=== PATIENT | female | born 1950 | race Caucasian/White ===

== ENCOUNTER 2020-08-25 12:18 | Outpatient (REF) | payer SELFPAY ==
--- NOTE | 2020-08-28 08:52 | MHC.AU.P13 ---
Hearing Aid Evaluation- Binaural Date of Visit: 08/25/20 Description of Hearing: Asymmetric mild to moderate, dropping to moderately-severe mixed hearing loss, right ear poorer than left. Summary: Patient saw [facility] last week and wants to pursue binaural hearing aids. Medical clearance WAS NOT provided by the ENT and I will fax the clearance to the office. Appropriate models of hearing aids and technology levels. Patient wants to pursue with the aids documented below. Hearing Instrument Selection: Right Ear: Table And Desk Finisher: Phonak Model: Audeo P 50-13T Battery Size: 13 Color: Sand Beige Trader: #1 medium Tubing: Type of Dome: Vented Type of Mold: Left Ear: Table And Desk Finisher: Phonak Model: Audeo P 50-13T Battery Size: 13 Color: Sand Beige Trader: #1 medium Tubing: Type of Dome: Vented Type of Mold: Accessories/Assistive Technology: Recommendations: Recommendations: A hearing instrument fitting was scheduled. A signed medical clearance is required from Ear, Nose, and Throat Recommendations: Medical clearance faxed to [facility] 08/28/2020 Diagnosis Code(s): Primary Diagnosis: H90.6 Mixed Hearing Loss, Bilateral Secondary Diagnosis: N/A Services Performed: Hearing Aid Evaluation and Earmold: Assorted Hearing Aid Service: No Charge Visit Number of Individual Battery Cells: Packages of Batteries: Signature: Student/Clinical Fellow: I have reviewed/agreed with student/fellow documentation: Provider: Kath Oropeza, [facility]
== END 2020-08-25 12:19 | disposition home or self-care (01) ==
LOC: HO.HAP 12:18
PROVIDERS: PCP Internal Medicine; Referring Provider Internal Medicine; Visit Provider Internal Medicine
DX: Z13.89 Encounter for screening for other disorder (principal)
CPT/HCPCS: 92700

== ENCOUNTER 2020-09-11 12:37 | Outpatient (REF) | payer SELFPAY | END 2020-09-11 12:38 | disposition home or self-care (01) | LOC: HO.HAP 12:37 | PROVIDERS: PCP Internal Medicine; Referring Provider Otolaryngology; Visit Provider Internal Medicine | DX: Z46.1 Encounter for fitting and adjustment of hearing aid (principal) | CPT/HCPCS: V5261 ==

== ENCOUNTER 2020-10-03 12:10 | Outpatient (REF) | payer SELFPAY | END 2020-10-03 12:11 | disposition home or self-care (01) | LOC: HO.HAP 12:10 | PROVIDERS: PCP Internal Medicine; Referring Provider Internal Medicine; Visit Provider Internal Medicine | DX: Z13.89 Encounter for screening for other disorder (principal) | CPT/HCPCS: 92700 ==

== ENCOUNTER 2020-10-17 09:27 | Outpatient (REF) | payer SELFPAY | END 2020-10-17 09:28 | disposition home or self-care (01) | LOC: HO.HAP 09:27 | PROVIDERS: Visit Provider Internal Medicine | DX: Z46.1 Encounter for fitting and adjustment of hearing aid (principal) | CPT/HCPCS: V5267 ==

== ENCOUNTER 2021-01-02 07:33 | Day surgery (SDC) | payer BC, SELFPAY ==
[2020-12-27 13:30] VITALS: BMI 29.4
--- NOTE | 2021-01-01 09:19 | P.CONAN_ITS ---
Documented by User: Lois Bonilla 01/01/21 09:20 HPI - Anesthesia Eval Consult details Narrative: 70yo F for Upper Endoscopy and Colonoscopy chronic opioids PMFSH Past Medical History Medical History Arthritis Back pain Claudication DJD (degenerative joint disease) HTN (hypertension) Hx of Lyme disease IBS (irritable bowel syndrome) Kyphosis deformity of spine Restless leg syndrome Thyroid disease Surgical History Surgical History H/O colonoscopy History of back surgery History of esophagogastroduodenoscopy (EGD) History of total left hip arthroplasty History of total left knee replacement Hx of cervical discectomy Hx of section Hx of inguinal hernia repair Hx of tubal ligation Social History Social History Are you a primary home care and home health aides teacher to a significant other at home: No Do you presently have visiting nurse or other home services: No Smoking Status: Current every day smoker Cigarettes Per Day: 10 Years Smoked: 50 Smoked in Last 30 Days: Yes Use of substances other than those prescribed or required for medical reasons: No Have you been hit, kicked, punched, or otherwise hurt by someone within the past year? If so, by whom?: No Advance Directives Information Provided: No Recently lost weight without trying: No Meds Allergies Allergy/AdvReac Type Severity Reaction Status Date / Time metronidazole [From FLAGYL] Allergy Severe UNRESPONSIV Unverified 12/27/20 13:30 E Sulfa (Sulfonamide Allergy Severe UNRESPONSIV Unverified 12/27/20 13:30 Antibiotics) E [SULFA (SULFONAMIDE ANTIBIOTICS)] celecoxib [From CELEBREX] Allergy Unknown CONTRAINDIC Verified 01/02/21 08:17 ATED Home Medications Medication Instructions Recorded Confirmed Last Taken Type amlodipine 1 tab PO DAILY 12/27/20 12/27/20 Unknown History chlorzoxazone [Parafon Forte DSC] 500 mg PO TID PRN 12/27/20 12/27/20 Unknown Hi story gabapentin 100 mg PO BEDTIME 12/27/20 12/27/20 Unknown History gabapentin 300 mg PO BEDTIME 12/27/20 12/27/20 Unknown History hydrocodone-acetaminophen 1 tab PO Q6H PRN 12/27/20 12/27/20 Unknown History lactobacillus comb no.10 20,000 mmu cells PO DAILY 12/27/20 12/27/20 Unknown History [Probiotic] levothyroxine 100 mcg PO QAM 12/27/20 12/27/20 Unknown History lisinopril 1 tab PO DAILY 12/27/20 12/27/20 Unknown History prochlorperazine maleate 10 mg PO Q6H PRN 12/27/20 12/27/20 Unknown History rifaximin [Xifaxan] 1 tab PO BID 12/27/20 12/27/20 Unknown History tramadol 1 tab PO TID PRN 12/27/20 12/27/20 Unknown History Exam Exam Date and Time: January 01, [id number] Height,Weight and Vital Signs: Height 5 ft 3 in Weight 75.296 kg Assessment and Plan Assessment Anesthesia Assessment: Chart Reviewed Documented by User: Hailey Albright 01/02/21 08:59 PMFSH Past Medical History Medical History Arthritis Back pain Claudication DJD (degenerative joint disease) HTN (hypertension) Hx of Lyme disease IBS (irritable bowel syndrome) Kyphosis deformity of spine Restless leg syndrome Thyroid disease Family History Family history of problems with anesthesia: No Surgical History Surgical History H/O colonoscopy History of back surgery History of esophagogastroduodenoscopy (EGD) History of total left hip arthroplasty History of total left knee replacement Hx of cervical discectomy Hx of section Hx of inguinal hernia repair Hx of tubal ligation History of Problems with Anesthesia: No Social History Social History Are you a primary home care and home health aides teacher to a significant other at home: No Do you presently have visiting nurse or other home services: No Smoking Status: Current every day smoker Cigarettes Per Day: 10 Years Smoked: 50 Smoked in Last 30 Days: Yes Use of substances other than those prescribed or required for medical reasons: No Have you been hit, kicked, punched, or otherwise hurt by someone within the past year? If so, by whom?: No Advance Directives Information Provided: No Recently lost weight without trying: No Meds Allergies Allergy/AdvReac Type Severity Reaction Status Date / Time metronidazole [From FLAGYL] Allergy Severe UNRESPONSIV Unverified 12/27/20 13:30 E Sulfa (Sulfonamide Allergy Severe UNRESPONSIV Unverified 12/27/20 13:30 Antibiotics) E [SULFA (SULFONAMIDE ANTIBIOTICS)] celecoxib [From CELEBREX] Allergy Unknown CONTRAINDIC Verified 01/02/21 08:17 ATED Home Medications Medication Instructions Recorded Confirmed Last Taken Type amlodipine 1 tab PO DAILY 12/27/20 12/27/20 Unknown History chlorzoxazone [Parafon Forte DSC] 500 mg PO TID PRN 12/27/20 12/27/20 Unknown History gabapentin 100 mg PO BEDTIME 12/27/20 12/27/20 Unknown History gabapentin 300 mg PO BEDTIME 12/27/20 12/27/20 Unknown History hydrocodone-acetaminophen 1 tab PO Q6H PRN 12/27/20 12/27/20 Unknown History lactobacillus comb no.10 20,000 mmu cells PO DAILY 12/27/20 12/27/20 Unknown History [Probiotic] levothyroxine 100 mcg PO QAM 12/27/20 12/27/20 Unknown History lisinopril 1 tab PO DAILY 12/27/20 12/27/20 Unknown History prochlorperazine maleate 10 mg PO Q6H PRN 12/27/20 12/27/20 Unknown History rifaximin [Xifaxan] 1 tab PO BID 12/27/20 12/27/20 Unknown History tramadol 1 tab PO TID PRN 12/27/20 12/27/20 Unknown History Exam Height,Weight and Vital Signs: Vital Signs Temp Pulse Resp BP Pulse Ox 01/02/21 08:05 98.7 F 85 16 164/89 H 99 Airway Mallampati Class: II TM Dist: >3cm Neck ROM: Full Heart: RRR Lungs: CTAB Assessment and Plan Assessment Anesthesia Assessment: Anesthesia Plan Discussed and Chart Reviewed Final Anesthetic Review NPO: Yes ASA Class: II Final Preanesthetic Review: No Changes in Pt Med Stat, Meds/Allgs Chart Reviewed, Consent Obtained/Reviewed and Anes Risks/Benef Reviewed Patient Risk: Intermediate Procedure Risk: Low Assessment/Block/Sedation in SS: Assess/Block/Sedation-SS Anesthetic Plan Anesthetic Plan: MAC: Disposition: Standard PACU
[2021-01-02 08:05] VITALS: BP 164/89; PULSE 85; RESP 16; TEMP 37.1; O2SAT 99
[2021-01-02] MEDS: Lactated Ringers 1,000 ML 100 ML IVCONT (08:17)
--- NOTE | 2021-01-02 08:49 | MHC.SHP ---
Pre-Procedural Eval Section B Chief Complaint: reflux disease,screening Details of Present Illness: see H& P no changes Relevant Family History (Specify if Yes): No Relevant Social History: Tobacco Use Present Medications: see Short Stay Collaborative assessment Medical History: No relevant PMH Allergies: Allergies Allergy/AdvReac Type Severity Reaction Status Date / Time metronidazole [From FLAGYL] Allergy Severe UNRESPONSIV Unverified 12/27/20 13:30 E Sulfa (Sulfonamide Allergy Severe UNRESPONSIV Unverified 12/27/20 13:30 Antibiotics) E [SULFA (SULFONAMIDE ANTIBIOTICS)] celecoxib [From CELEBREX] Allergy Unknown CONTRAINDIC Verified 01/02/21 08:17 ATED Review of Systems Sugical H&P ROS: Negative: Constitution, Cardiovascular, Respiratory, Neurological, Psychiatric, Hem-Onc, Allergic/Immunologic, Gastrointestinal, Genitourinary, Musculoskeletal, Integumentary, Endocrine and Eyes/Ears/Nose/Throat Exam Surgical H&P Exam: Normal: HEENT, Normal: Heart, Normal: Lungs, Normal: Extremities, Normal: Abdomen, Normal: Skin and Normal: Neurological Plan Diagnosis/Plan: Unchanged I have reviewed the history and physical and performed a pertinent physical examination on my patient. No changes have occurred unless specified.
[2021-01-02 09:34] VITALS: BP 125/55; PULSE 63; RESP 12; TEMP 37; O2SAT 100
--- NOTE | 2021-01-02 09:37 | PM.OP ---
Brief Operative Note Date of Service: 01/02/21 Pre-op diagnosis: gerd, screening Post-op diagnosis: same (gastric ulcer, colon polyp) Procedure: egd colonoscopy Surgeon: Mehul Burdick Estimated blood loss (mL): 10 Pathology: other (bxs gastric ulcer, egj, cecal polyp, sigmoid) Condition: stable Disposition: PACU
[2021-01-02 09:49] VITALS: BP 120/78; PULSE 72; RESP 17; TEMP 37; O2SAT 99
--- NOTE | 2021-01-02 10:03 | OP_ITS ---
SURGEON: Mehul Burdick MD INDICATIONS: Gastroesophageal reflux disease and colon cancer screening. PREOPERATIVE DIAGNOSIS: POSTOPERATIVE DIAGNOSIS: PROCEDURE PERFORMED: ESTIMATED BLOOD LOSS: COMPLICATIONS: ANESTHESIA: ASSISTANTS: SPECIMENS: PROCEDURES PERFORMED: 1. Upper endoscopy with biopsy. 2. Colonoscopy to the terminal ileum with biopsy. MEDICATIONS: Monitored anesthesia care. DESCRIPTION OF PROCEDURE: History and physical performed. The risks and benefits of the procedure were explained to the patient. Informed consent was obtained. The patient was placed in a left lateral decubitus position. The Olympus video gastroscope was introduced into the esophagus, stomach, and duodenum. Examination was performed and the scope was removed. She was repositioned for colonoscopy. Digital rectal exam was performed and was found to be normal. The Olympus pediatric video colonoscope was introduced into the rectum and advanced to the cecum without difficulty. The cecum was identified by transillumination, palpation, and identification of ileocecal valve. Abdominal wall pressure was used to assist in advancement of the scope. Examination was performed and the scope was removed. She tolerated both procedures well and returned to recovery area in stable condition. FINDINGS: UPPER ENDOSCOPY: Esophagus: The esophagus was normal. Biopsies were obtained from the EG junction. Stomach: The stomach showed no evidence of masses. There was a 5 mm antral gastric ulcer on the greater curvature with no active bleeding. Biopsies were obtained from the margin of the ulcer. Duodenum: The bulb and second portion were normal. COLONOSCOPY: The terminal ileum was examined and appeared normal. The visualized colonic mucosa was normal. There was some liquid stool coating the mucosa, limiting sensitivity examination for detection of small polyps. This was washed and suctioned as best possible. In the cecum, was a less than 5 mm sessile polyp, which was removed with biopsy forceps. There was no evidence of colitis. There was mild diverticulosis scattered throughout the colon. Biopsies were obtained from the sigmoid to rule out microscopic colitis. Retroflexed examination showed small internal hemorrhoids. IMPRESSION: 1. Gastric ulcer. 2. Colon polyp. RECOMMENDATION: Follow up the biopsy results. MD KAIT Mendoza/COLIN / [id number]
== END 2021-01-02 10:29 | disposition home or self-care (01) ==
PROVIDERS: PCP Internal Medicine; Visit Provider Internal Medicine Gastroenterology
PROC: (CPT 45380; principal; 2021-01-02 08:50)
DX: Z12.11 Encounter for screening for malignant neoplasm of colon (principal); Z86.010 Personal history of colon polyps; D12.0 Benign neoplasm of cecum; K58.9 Irritable bowel syndrome, unspecified; K21.9 Gastro-esophageal reflux disease without esophagitis; K25.9 Gastric ulcer, unspecified as acute or chronic, without hemorrhage or perforation; R11.0 Nausea; I10 Essential (primary) hypertension; F17.210 Nicotine dependence, cigarettes, uncomplicated; Z79.899 Other long term (current) drug therapy
CPT/HCPCS: 45380; 43239; 88305; 88342; J3010

== ENCOUNTER 2021-04-17 06:16 | Day surgery (SDC) | payer BC, SELFPAY ==
[2021-04-12 10:34] VITALS: BMI 25.8
--- NOTE | 2021-04-16 08:44 | P.CONAN_ITS ---
Documented by User: Lois Bonilla 04/16/21 08:44 HPI - Anesthesia Eval Consult details Narrative: 71yo F for Upper Endoscopy s/p EGD and colo with MAC 01/2021 [facility] Past Medical History Medical History Arthritis Back pain Claudication COVID-19 vaccine administered DJD (degenerative joint disease) Elevated cholesterol HTN (hypertension) Hx of Lyme disease IBS (irritable bowel syndrome) Kyphosis deformity of spine Restless leg syndrome Thyroid disease Family History Family history of problems with anesthesia: No Surgical History Surgical History H/O colonoscopy History of back surgery History of esophagogastroduodenoscopy (EGD) History of total left hip arthroplasty History of total left knee replacement Hx of cervical discectomy Hx of section Hx of inguinal hernia repair Hx of lumbar discectomy Hx of tubal ligation History of Problems with Anesthesia: No Social History Social History Are you a primary physician locums urgent care to a significant other at home: No Do you presently have visiting nurse or other home services: No Patient Tobacco Use Status: Current everyday Tobacco user Tobacco use type: Cigarette Cigarettes Per Day: 8 Years Smoked: 50 Are you DNR?: No Advance Directives Information Provided: No Meds Allergies Allergy/AdvReac Type Severity Reaction Status Date / Time metronidazole [From FLAGYL] Allergy Severe UNRESPONSIV Verified 04/17/21 06:47 E Sulfa (Sulfonamide Allergy Severe UNRESPONSIV Verified 04/17/21 06:47 Antibiotics) E [SULFA (SULFONAMIDE ANTIBIOTICS)] celecoxib [From CELEBREX] Allergy Unknown CONTRAINDIC Verified 04/17/21 06:47 ATED Home Medications Medication Instructions Recorded Confirmed Last Taken Type atorvastatin 1 tab PO DAILY 04/12/21 04/12/21 Unknown History carvedilol 1 tab PO BID 04/12/21 04/12/21 04/17/21 History chlorzoxazone 1 tab PO TID 04/12/21 04/12/21 Unknown History clonidine HCl 0.1 mg PO BID 04/12/21 04/12/21 04/17/21 History gabapentin 100 mg PO BEDTIME 04/12/21 04/12/21 Unknown History gabapentin 300 mg PO BEDTIME 04/12/21 04/12/21 Unknown History hydrocodone-acetaminophen 1 tab PO Q4H PRN 04/12/21 04/12/21 Unknown History levothyroxine 1 tab PO DAILY 04/12/21 04/12/21 04/17/21 History lisinopril 1 tab PO DAILY 04/12/21 04/12/21 Unknown History prochlorperazine maleate 1 tab PO TID 04/12/21 04/12/21 Unknown History rifaximin [Xifaxan] 1 tab PO BID 04/12/21 04/12/21 Unknown History tramadol 1 tab PO TID PRN 04/12/21 04/12/21 Unknown History Exam Exam Date and Time: April 16, 2021 0844 Height,Weight and Vital Signs: Height 5 ft 6 in Weight 72.575 kg Assessment and Plan Assessment Anesthesia Assessment: Chart Reviewed Documented by User: Hailey Albright 04/17/21 07:37 PMFSH Past Medical History Medical History Arthritis Back pain Claudication COVID-19 vaccine administered DJD (degenerative joint disease) Elevated cholesterol HTN (hypertension) Hx of Lyme disease IBS (irritable bowel syndrome) Kyphosis deformity of spine Restless leg syndrome Thyroid disease Surgical History Surgical History H/O colonoscopy History of back surgery History of esophagogastroduodenoscopy (EGD) History of total left hip arthroplasty History of total left knee replacement Hx of cervical discectomy Hx of section Hx of inguinal hernia repair Hx of lumbar discectomy Hx of tubal ligation Social History Social History Are you a primary physician locums urgent care to a significant other at home: No Do you presently have visiting nurse or other home services: No Patient Tobacco Use Status: Current everyday Tobacco user Tobacco use type: Cigarette Cigarettes Per Day: 8 Years Smoked: 50 Are you DNR?: No Advance Directives Information Provided: No Meds Allergies Allergy/AdvReac Type Severity Reaction Status Date / Time metronidazole [From FLAGYL] Allergy Severe UNRESPONSIV Verified 04/17/21 06:47 E Sulfa (Sulfonamide Allergy Severe UNRESPONSIV Verified 04/17/21 06:47 Antibiotics) E [SULFA (SULFONAMIDE ANTIBIOTICS)] celecoxib [From CELEBREX] Allergy Unknown CONTRAINDIC Verified 04/17/21 06:47 ATED Home Medications Medication Instructions Recorded Confirmed Last Taken Type atorvastatin 1 tab PO DAILY 04/12/21 04/12/21 Unknown History carvedilol 1 tab PO BID 04/12/21 04/12/21 04/17/21 History chlorzoxazone 1 tab PO TID 04/12/21 04/12/21 Unknown History clonidine HCl 0.1 mg PO BID 04/12/21 04/12/21 04/17/21 History gabapentin 100 mg PO BEDTIME 04/12/21 04/12/21 Unknown History gabapentin 300 mg PO BEDTIME 04/12/21 04/12/21 Unknown History hydrocodone-acetaminophen 1 tab PO Q4H PRN 04/12/21 04/12/21 Unknown History levothyroxine 1 tab PO DAILY 04/12/21 04/12/21 04/17/21 History lisinopril 1 tab PO DAILY 04/12/21 04/12/21 Unknown History prochlorperazine maleate 1 tab PO TID 04/12/21 04/12/21 Unknown History rifaximin [Xifaxan] 1 tab PO BID 04/12/21 04/12/21 Unknown History tramadol 1 tab PO TID PRN 04/12/21 04/12/21 Unknown History Exam Height,Weight and Vital Signs: Vital Signs Temp Pulse Resp BP Pulse Ox 04/17/21 06:34 97.2 F 55 16 105/59 L 96 Airway Mallampati Class: II TM Dist: >3cm Neck ROM: Full Heart: RRR Lungs: CTAB Assessment and Plan Assessment Anesthesia Assessment: Anesthesia Plan Discussed and Chart Reviewed Final Anesthetic Review NPO: Yes ASA Class: II Final Preanesthetic Review: No Changes in Pt Med Stat, Meds/Allgs Chart Reviewed, Consent Obtained/Reviewed and Anes Risks/Benef Reviewed Patient Risk: Low Procedure Risk: Low Assessment/Block/Sedation in SS: Assess/Block/Sedation-SS Anesthetic Plan Anesthetic Plan: MAC: Disposition: Standard PACU
[2021-04-17 06:34] VITALS: BP 105/59; PULSE 55; RESP 16; TEMP 36.2; O2SAT 96
[2021-04-17] MEDS: Lactated Ringers 1,000 ML 100 ML IVCONT (06:48)
--- NOTE | 2021-04-17 07:22 | P.HPSUR_ITS ---
Pre-Procedural Eval Section A The patient is an INPATIENT: No Section B Chief Complaint: gastric ulcer Details of Present Illness: gastric ulcer Relevant Family History (Specify if Yes): No Relevant Social History: None (see H&P) Present Medications: see Short Stay Collaborative assessment Medical History: No relevant PMH History of Previous Operations: No relevant previous surgery Allergies: Allergies Allergy/AdvReac Type Severity Reaction Status Date / Time metronidazole [From FLAGYL] Allergy Severe UNRESPONSIV Verified 04/17/21 06:47 E Sulfa (Sulfonamide Allergy Severe UNRESPONSIV Verified 04/17/21 06:47 Antibiotics) E [SULFA (SULFONAMIDE ANTIBIOTICS)] celecoxib [From CELEBREX] Allergy Unknown CONTRAINDIC Verified 04/17/21 06:47 ATED Review of Systems Sugical H&P ROS: Negative: Constitution, Cardiovascular, Respiratory, Neurological, Psychiatric, Hem-Onc, Allergic/Immunologic, Gastrointestinal, Genitourinary, Musculoskeletal, Integumentary, Endocrine and Eyes/Ea rs/Nose/Throat Exam Surgical H&P Exam: Normal: HEENT, Normal: Heart, Normal: Lungs, Normal: Extremities, Normal: Abdomen, Normal: Skin and Normal: Neurological Plan Diagnosis/Plan: Unchanged I have reviewed the history and physical and performed a pertinent physical examination on my patient. No changes have occurred unless specified.
--- NOTE | 2021-04-17 07:43 | PM.OP ---
Brief Operative Note Date of Service: 04/17/21 Pre-op diagnosis: gastric ulcer Post-op diagnosis: same (erosive gastritis) Procedure: EGD/bx Surgeon: Mehul Burdick Anesthesia: MAC Was an Production Team Advisor used for this Procedure?: No Estimated blood loss (mL): 5 Pathology: other (antral biopsies, duodenal biopsies) Condition: stable Disposition: PACU
[2021-04-17 07:44] VITALS: BP 94/58; PULSE 51; RESP 15; TEMP 36.2; O2SAT 98
[2021-04-17 07:59] VITALS: BP 96/54; PULSE 53; RESP 17; O2SAT 100
[2021-04-17 08:09] VITALS: BP 119/55; PULSE 53; RESP 17; O2SAT 99
--- NOTE | 2021-04-20 10:56 | OP_ITS ---
SURGEON: Mehul Burdick MD INDICATIONS: Gastric ulcers at the time of last endoscopy. PREOPERATIVE DIAGNOSIS: POSTOPERATIVE DIAGNOSIS: PROCEDURE PERFORMED: Upper endoscopy with biopsy. ESTIMATED BLOOD LOSS: COMPLICATIONS: ANESTHESIA: ASSISTANTS: SPECIMENS: MEDICATIONS: Monitored anesthesia care. DESCRIPTION OF PROCEDURE: History and physical performed. The risks and benefits of the procedure were explained to the patient. Informed consent was obtained. The patient was placed in the left lateral decubitus position. The Olympus video gastroscope was introduced into the esophagus, stomach, and duodenum. Examination was performed and the scope was removed. She tolerated the procedure well and was taken to recovery area in stable condition. FINDINGS: Esophagus: The esophagus showed some residual food debris, but no esophagitis. Stomach: The stomach showed no evidence of masses. There were multiple erosions measuring approximately 5 to 10 mm with surrounding gastritis. Biopsies were obtained from the ulcers. No mass lesion was seen. Duodenum: There was duodenitis involving the bulb. Biopsies were obtained from the second portion. IMPRESSION: 1. Erosive gastritis with superficial ulcerations. 2. Duodenitis. RECOMMENDATIONS: 1. Follow up the biopsy results. 2. High-dose proton pump inhibitor. MD KAIT Mendoza/COLIN / [id number]
== END 2021-04-17 08:49 | disposition home or self-care (01) ==
PROVIDERS: PCP Internal Medicine; Visit Provider Internal Medicine Gastroenterology
PROC: 0DJ08ZZ Inspection of Upper Intestinal Tract, Via Natural or Artificial Opening Endoscopic (ICD-10-PCS; CPT 43235; principal; 2021-04-17 07:30)
DX: K25.9 Gastric ulcer, unspecified as acute or chronic, without hemorrhage or perforation (principal); K29.60 Other gastritis without bleeding; K58.9 Irritable bowel syndrome, unspecified; K29.80 Duodenitis without bleeding; I10 Essential (primary) hypertension; Z86.19 Personal history of other infectious and parasitic diseases; F17.210 Nicotine dependence, cigarettes, uncomplicated; Z79.899 Other long term (current) drug therapy
CPT/HCPCS: 43239; 88305; 88342

== ENCOUNTER 2021-05-16 10:43 | Outpatient (REF) | payer SELFPAY | END 2021-05-16 10:44 | disposition home or self-care (01) | LOC: HO.HAP 10:43 | PROVIDERS: Visit Provider Internal Medicine | DX: Z13.89 Encounter for screening for other disorder (principal) ==

== ENCOUNTER 2022-11-01 12:28 | Outpatient (REF) | payer BC, SELFPAY ==
[2022-11-01 14:33] LABS: Leukocytes Stool Qualitative NEGATIVE (NEGATIVE)
[2022-11-01 15:10] LABS: CDiff Gene PCR NEGATIVE (Negative)
[2022-11-07 20:04] LABS: Calprotectin, Fecal 15 mcg/g
== END 2022-11-01 12:29 | disposition home or self-care (01) ==
LOC: HO.HMGCLDS 12:28
PROVIDERS: PCP Internal Medicine; Visit Provider Internal Medicine Gastroenterology
DX: R19.7 Diarrhea, unspecified (principal)
CPT/HCPCS: 83993; 87177; 87209; 87493; 87507; 89055

== ENCOUNTER 2022-11-04 | Outpatient (REF) | payer BC, SELFPAY | END 2022-11-04 00:01 | disposition home or self-care (01) | LOC: HO.LNP | PROVIDERS: Visit Provider Internal Medicine Gastroenterology | DX: Z13.89 Encounter for screening for other disorder (principal) | CPT/HCPCS: 83993; 87493 ==

== ENCOUNTER 2022-11-05 09:45 | Outpatient (REF) | payer BC, SELFPAY | END 2022-11-05 09:46 | disposition home or self-care (01) | LOC: HO.HMGCLNP 09:45 | PROVIDERS: Visit Provider Internal Medicine Gastroenterology | DX: R19.7 Diarrhea, unspecified (principal) | CPT/HCPCS: 87177; 87209; 87507 ==

== ENCOUNTER 2022-11-08 10:35 | Outpatient (REF) | payer BC, SELFPAY ==
[2022-11-08 12:52] LABS: Adenovirus F 40/41 Not Detected (Not Detect.); Astrovirus Not Detected (Not Detect.); Campylobacter Not Detected (Not Detect.); Cryptosporidium Not Detected (Not Detect.); Cyclospora cayetanensis Not Detected (Not Detect.); E. coli EAEC Not Detected (Not Detect.); E. coli EPEC Not Detected (Not Detect.); E. coli ETEC Not Detected (Not Detect.); E. coli STEC Not Detected (Not Detect.); Entamoeba histolytica Not Detected (Not Detect.); Giardia lamblia Not Detected (Not Detect.); Norovirus GI/GII Not Detected (Not Detect.); Plesiomonas shigelloides Not Detected (Not Detect.); Rotavirus A Not Detected (Not Detect.); Salmonella Not Detected (Not Detect.); Sapovirus Not Detected (Not Detect.); Shigella sp./EIEC Not Detected (Not Detect.); Vibrio Not Detected (Not Detect.); Vibrio Cholerae Not Detected (Not Detect.); Yersinia enterocolitica Not Detected (Not Detect.)
== END 2022-11-08 10:36 | disposition home or self-care (01) ==
LOC: HO.HMGCLNP 10:35
PROVIDERS: PCP Internal Medicine Gastroenterology; Visit Provider Internal Medicine Gastroenterology
DX: R19.7 Diarrhea, unspecified (principal)
CPT/HCPCS: 87507

== ENCOUNTER 2024-04-19 13:49 | Outpatient (AMB) | payer BC, SELFPAY ==
--- NOTE | 2024-04-19 13:55 | HO.SPINEOV ---
Intake Visit Reasons: increase in back pain Intake Note: Ms. Obrien is here today c/o increased back pain. MRI done at [facility]. 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 This is a patient known to us from our previous practice at [facility]. She underwent an ACDF at C5-6 a number of years ago by Dr. Thiago Mata , who has since . She was following up with us for degenerative disc disease in her neck with cervical stenosis at C3-4. At the time of our visit her main complaint was neck pain and she did have some hyperreflexia on the left sides so we had been following her clinically with serial neurological exams and office visit just to make sure she did not become symptomatic from the stenosis in terms of neurological complaints. She has been stable and our last office visit was sometime over the winter of 2022. She had had a little bit of tingling on the right side of her neck so wanted to come in today for checkup. Overall, most of the issue she has been having are with her lumbar spine. She has a severe scoliosis and trouble walking but has not had any tingling or numbness of her arms or legs. No loss of fine motor movements. Obviously with the scoliosis her balance is not great but there have been no new specific changes in terms of things deteriorating due to focal leg weakness. On my exam she has excellent strength. She still has the hyperreflexia on the left. 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 This may account for her hyperreflexia, but we will continue to check on her. I educated her and her on signs and symptoms of myelopathy and we will see her back in 6 months again for another office visit. Total amount of time spent in this visit was 20 minutes in discussion of symptoms, cervical MRI imaging results and subsequent plan of care Jose Luis Salgado MD,PhD [facility] Coding Level of Care Code Est Pt Level 3 (62258) Diagnoses Cervical myelopathy G95.9
== END 2024-04-19 14:38 | disposition home or self-care (01) ==
PROVIDERS: PCP Internal Medicine Gastroenterology; Visit Provider Physician Assistant
DX: G95.9 Disease of spinal cord, unspecified (principal)
CPT/HCPCS: 99213

== ENCOUNTER → 2024-04-19 13:49 | Outpatient (BNVA) | payer BC, SELFPAY | PROVIDERS: PCP Internal Medicine Gastroenterology; Visit Provider Physician Assistant ==

== ENCOUNTER 2024-07-23 14:37 | Outpatient (AMB) | payer BC, SELFPAY ==
--- NOTE | 2024-07-23 14:46 | HO.SPINEOV ---
Intake Visit Reasons: review MRI Intake Note: Ms. Obrien is here to F/u on MRI Results. Fruit Stuffer Required: No Allergies metronidazole [From FLAGYL] Allergy (Severe, Verified 04/17/21 06:47) UNRESPONSIVE Sulfa (Sulfonamide Antibiotics) [SULFA (SULFONAMIDE ANTIBIOTICS)] Allergy (Severe, Verified 04/19/24 14:07) UNRESPONSIVE celecoxib [From CELEBREX] Allergy (Unknown, Verified 04/17/21 06:47) CONTRAINDICATED Assessment & Plan Assessment & Plan (1) Leg weakness: Code(s): R29.898 - Other symptoms and signs involving the musculoskeletal system Category: Medical Plan Mrs Obrien is following up in the office today for a new issue that has been bothering her. We had been following her for an asymptomatic C3-4 cervical stenosis with some hyperreflexia found on her exam. What she reports now is that over the last few months without any specific inciting event, she is developed progressive weakness of both of her legs. There is not any pain shooting down her legs. There is no specific numbness, just a generalized sense of not being able to hold herself up anymore. She comes in today in a wheelchair because she is lost the ability to mobilize even short distances now because of the leg weakness. She is able to control her bladder and does sense when she has to go but she has urinary frequency and urgency but she has not had any incontinence. The frequency and urgency are unchanged and she attributes these to her age. I reviewed her lumbar MRI at [place] and she does have scoliotic curvature. She has stenosis at L3-4 which i would rate as moderate to severe worse on the right. Noted by the radiologist there is a T2 hyperintensity in the spinal cord at the T10-11 level and what appears to be severe stenosis. I examined her today, she is able to get up out of the wheelchair on her own but she is very unsteady. She stands with a flexed posture. She has 3/5 weakness of her iliopsoas but her quadriceps and tibialis are intact. She has increased reflexes on the left patella and clonus in both of her ankles. I am going to order an urgent thoracic MRI to evaluate thoracic myelopathy as seen on the lumbar MRI. I will also get a set of standing scoliosis survey x-rays to better understand the dynamics of her thoracolumbar spine in the setting of her curvature. I will see her back when this is completed. Total amount of time spent in this visit was 20 minutes in discussion of symptoms, lumbar imaging results and subsequent plan of care Jose Luis Salgado MD,PhD [facility] Orders: Orders MR thoracic spine wo con Today R29.898 - Other symptoms and signs involving the musculoskeletal system XR lumbar spine 4V min Today R29.898 - Other symptoms and signs involving the musculoskeletal system XR scoliosis survey Today R29.898 - Other symptoms and signs involving the musculoskeletal system Coding Level of Care Code Est Pt Level 3 (61872) Diagnoses Leg weakness R29.898
== END 2024-07-23 15:31 | disposition home or self-care (01) ==
PROVIDERS: PCP Internal Medicine; Visit Provider Physician Assistant
DX: R29.898 Other symptoms and signs involving the musculoskeletal system (principal)
CPT/HCPCS: 99213

== ENCOUNTER → 2024-07-23 14:37 | Outpatient (BNVA) | payer BC, SELFPAY | PROVIDERS: PCP Internal Medicine; Visit Provider Physician Assistant ==

== ENCOUNTER 2024-07-27 11:20 | Outpatient (REF) | payer BC, SELFPAY ==
--- NOTE | ~2024-07-27 | XR_ITS ---
EXAMINATION: XR SCOLIOSIS CLINICAL INFORMATION: R29.898 - Other symptoms and signs involving the musculoskeletal system COMPARISON: Lumbar spine radiographs 07/27/2024 TECHNIQUE: A single view of the thoracolumbar spine is obtained. FINDINGS: Vertebral body detail is limited on this exam. Difficult to assess for compression deformities. Multilevel disc space narrowing is seen throughout the thoracic and lumbar spine with extensive spondylosis. The lateral view is rotated with a thoracolumbar kyphosis measuring approximately 77 degrees. A right convex thoracolumbar scoliosis measures approximately 56 degrees and a left convex lumbar scoliosis approximately 26 degrees. Left total hip arthroplasty is partially visualized. Moderately advanced degenerative changes are present in the right hip. Note is made of prior anterior cervical disc fusion in the lower cervical spine. XR/XR scoliosis survey IMPRESSION: Kyphoscoliosis as described. Electronically signed by: Bradley Tovar MD 10/19/2024 09:23 PM [facility]
--- NOTE | ~2024-07-27 | XR_ITS ---
EXAMINATION: XR LUMBOSACRAL SPINE CLINICAL INFORMATION: R29.898 - Other symptoms and signs involving the musculoskeletal system COMPARISON: None available. TECHNIQUE: 4 views of the lumbar spine, inclusive of flexion and extension views, were obtained. FINDINGS: Diffuse osteopenia. Relatively severe scoliosis of the lumbar spine. This is convex to the right apex at L1, convex to the left apex at L5. Difficult to assess for alignment due to obliquity on the lateral femoral scoliosis and rotation. There appears to be subtle retrolistheses of L1 on L2, L2 on L3, and L3 on L4. There is a trace anterolisthesis L5 on S1. Grossly no change in flexion and extension to suggest instability. Severe disc space narrowing noted most significant at T12-L1, L1-L2, and L2-L3. Severe facet arthrosis and degeneration most significant on the right spanning L3-S1. Soft tissues demonstrate vascular calcifications. Ancillary note of moderate osteoarthrosis right hip joint, and left hip joint replacement. Lung bases are clear. XR/XR lumbar spine 4V min IMPRESSION: 1. Severe scoliosis and severe degenerative spondylosis. Osteopenia. 2. Subtle subluxations, degenerative, with no definite instability (although lateral projections are limited due to obliquity and scoliosis). 3. Ancillary findings as discussed. Electronically signed by: Demarcus Martínez MD 10/04/2024 10:51 AM [facility]
== END 2024-07-27 11:21 | disposition home or self-care (01) ==
LOC: HO.XRAY 11:20
PROVIDERS: PCP Internal Medicine; Visit Provider Physician Assistant
DX: R29.898 Other symptoms and signs involving the musculoskeletal system (principal)
CPT/HCPCS: 72082; 72110

== ENCOUNTER → 2024-07-27 11:30 | Outpatient (BNV) | payer BC, SELFPAY | PROVIDERS: PCP Internal Medicine; Visit Provider Radiology Diagnostic Radiology | DX: M41.9 Scoliosis, unspecified (principal) | CPT/HCPCS: 72110 ==

== ENCOUNTER 2024-07-28 08:44 | Outpatient (REF) | payer BC, SELFPAY ==
--- NOTE | ~2024-07-28 | MM_ITS ---
EXAMINATION: MM SCREENING DIGITAL BREAST TOMOSYNTHESIS, BILATERAL CLINICAL INFORMATION: Screening. Asymptomatic. COMPARISON: Mammography: Comparison is made with available priors TECHNIQUE: Digital breast mammography with tomosynthesis is performed in both the craniocaudal and mediolateral oblique views along with computer-aided detection (CAD). FINDINGS: There are scattered areas of fibroglandular density (ACR BI-RADS breast composition Category b). There are no significant masses, abnormal calcifications, or other abnormalities. MM/MM tomosynthesis screening BI IMPRESSION: No mammographic evidence of malignancy. ASSESSMENT: BI-RADS BI-RADS 1 - Negative RECOMMENDATION: Routine annual mammography screening. 1 year F/U This examination should not preclude the clinical evaluation of a suspicious palpable abnormality. This patient's information was entered into a reminder system with a target due date for their next mammogram. Electronically signed by: Sanna Gibbs DO 08/09/2024 05:15 PM EDT
== END 2024-07-28 08:45 | disposition home or self-care (01) ==
LOC: HO.MAMMO 08:44
PROVIDERS: PCP Internal Medicine; Visit Provider Nurse Practitioner
DX: Z12.31 Encounter for screening mammogram for malignant neoplasm of breast (principal)
CPT/HCPCS: 77063; 77067

== ENCOUNTER → 2024-07-28 08:45 | Outpatient (BNV) | payer BC, SELFPAY | PROVIDERS: PCP Internal Medicine; Visit Provider Internal Medicine | DX: Z12.31 Encounter for screening mammogram for malignant neoplasm of breast (principal) | CPT/HCPCS: 77063; 77067 ==

== ENCOUNTER 2024-08-26 06:35 | Day surgery (SDC) | payer BC, SELFPAY ==
[2024-08-20 12:24] VITALS: BP 124/61; PULSE 58; RESP 16; O2SAT 98; BMI 24.2
--- NOTE | 2024-08-20 12:52 | HO.ANESPROP2 ---
Documented by User: Lois Bonilla NP 08/25/24 11:59 HPI - Anesthesia Eval Consult details Narrative: 74yo F for Left T10-T11 Laminectomy Thoracic Decompression No recent illness No CP/SOB with very minimal activity Renal artery stenosis: >60%. Follows with cardiology only, no nephrology CAD: medically managed, no intervention s/p cervical discectomy PMFSH Active Problems Active Problems: All Active Problems Leg weakness (Acute) Cervical myelopathy (Acute) Past Medical History Medical History Pericarditis Difficulty swallowing Hiatal hernia GERD (gastroesophageal reflux disease) Incontinence of urine Dementia Seasonal allergies Sacroiliitis Post-Lyme disease syndrome Lyme disease Chronic fatigue syndrome Bronchiectasis Fibromyalgia Dyslipidemia Renal artery stenosis Tobacco use Coronary atherosclerosis due to severely calcified coronary lesion COVID-19 vaccine administered Kyphosis deformity of spine Claudication IBS (irritable bowel syndrome) Hx of Lyme disease Restless leg syndrome HTN (hypertension) Back pain Arthritis DJD (degenerative joint disease) Thyroid disease Family History Family history of problems with anesthesia: No Surgical History Surgical History History of total right knee replacement Hx of lumbar discectomy History of total left knee replacement History of total left hip arthroplasty Hx of section Hx of tubal ligation Hx of inguinal hernia repair Hx of cervical discectomy History of back surgery History of esophagogastroduodenoscopy (EGD) H/O colonoscopy History of Problems with Anesthesia: No Social History Social History Are you a primary anesthesiologist and critical care to a significant other at home: No Do you presently have visiting nurse or other home services: No Patient Tobacco Use Status: Former Tobacco user Tobacco use type: Cigarette Cigarettes Per Day: 8 Years Smoked: 50 Use of substances other than those prescribed or required for medical reasons: No Have you been hit, kicked, punched, or otherwise hurt by someone within the past year? If so, by whom?: No Are you DNR?: No Advance Directives: No Advance Directives Information Provided: Yes Advance Directives on File: No Recently lost weight without trying: Yes How much weight loss: 2-13 pounds Nutrition Risks: No Nutritional Risk Patient : No : No Poor oral hygiene: No Meds Allergies Allergy/AdvReac Type Severity Reaction Status Date / Time metronidazole [From FLAGYL] Allergy Severe UNRESPONSIV Verified 08/26/24 07:15 E Sulfa (Sulfonamide Allergy Severe UNRESPONSIV Verified 08/26/24 07:15 Antibiotics) E [SULFA (SULFONAMIDE ANTIBIOTICS)] celecoxib [From CELEBREX] Allergy Unknown CONTRAINDIC Verified 08/26/24 07:15 ATED colchicine Allergy Unknown Verified 08/26/24 07:15 hydromorphone Allergy Unresponsiv Verified 08/26/24 07:15 e levofloxacin [From Levaquin] Allergy Nausea Verified 08/26/24 07:15 Home Medications ?Medication ?Instructions ?Recorded ?Confirmed ?Last Taken ?Type carvedilol 12.5 mg tablet 1 tab PO BID 04/12/21 08/20/24 08/26/24 History chlorzoxazone 500 mg tablet 1 tab PO DAILY PRN Muscle Pain 04/12/21 08/20/24 Unknown History gabapentin 100 mg capsule 100 mg PO BEDTIME 04/12/21 08/20/24 Unknown History gabapentin 300 mg capsule 300 mg PO BEDTIME 04/12/21 08/20/24 Unknown History hydrocodone 5 mg-acetaminophen 325 1 tab PO Q6-8H PRN Pain 04/12/21 08/20/24 Unknown History mg tablet lisinopril 40 mg tablet 1 tab PO DAILY 04/12/21 08/20/24 Unknown History tramadol 50 mg tablet 1 tab PO Q6-8H PRN Pain 04/12/21 08/20/24 Unknown History Bacillus coagulans-inulin 1 1 cap PO DAILY 08/20/24 08/20/24 Unknown History billion cell-250 mg capsule amlodipine 5 mg tablet 5 mg PO DAILY 08/20/24 08/20/24 08/26/24 History amoxicillin 500 mg capsule 1,000 mg PO ONCE 08/20/24 08/20/24 Unknown History aspirin 325 mg tablet 325 mg PO BID 08/20/24 08/20/24 Unknown History donepezil 10 mg tablet 10 mg PO BEDTIME 08/20/24 08/20/24 Unknown History fexofenadine 180 mg tablet 180 mg PO DAILY 08/20/24 08/20/24 Unknown History ibuprofen 200 mg tablet 200 mg PO Q6H PRN Pain 08/20/24 08/20/24 Unknown History levothyroxine 75 mcg tablet 75 mcg PO DAILY 08/20/24 08/20/24 08/26/24 History magnesium oxide 1,000 mg PO BID 08/20/24 08/20/24 Unknown History jsoigezhpxou-sxvcvzeg-hpukcj 1 tab PO DAILY 08/20/24 08/20/24 Unknown History tablet (Multivitamin 50 Plus tablet) omeprazole 40 mg capsule,delayed 40 mg PO QAM 08/20/24 08/20/24 08/26/24 History release prochlorperazine maleate 10 mg 10 mg PO BID PRN Nausea 08/20/24 08/20/24 Unknown History tablet rosuvastatin 5 mg tablet 10 mg PO BEDTIME 08/20/24 08/20/24 Unknown History Exam Height,Weight and Vital Signs: Height 5 ft 4 in Weight 63.957 kg Last Vital Signs Pulse 58 08/20/24 12:24 Resp 16 08/20/24 12:24 BP 124/61 08/20/24 12:24 Pulse Ox 98 08/20/24 12:24 O2 Del Method Room Air 08/20/24 12:24 Pertinent Lab Results Pertinent Lab Results: Lab Results 08/20/24 Range/Units 13:20 WBC 7.0 (4.8-10.8) X10*3/uL RBC 3.99 L (4.20-5.50) X10*6/uL Hgb 12.8 (12.0-16.0) g/dl Hct 37.5 (37.0-47.0) % MCV 94.0 (80.0-98.0) fL MCH 32.1 (27.0-33.0) pg MCHC 34.1 (31.0-35.0) g/dl RDW 12.4 (11.0-16.0) % Plt Count 241 (160-400) X10*3/uL MPV 10.2 (9.4-12.3) fL Absolute Nucleated RBC 0.000 (0.0-0.012) X10*3/uL Nucleated RBC % (auto) 0.0 (0.0-0.2) /100WBC Sodium 136 (135-145) mmol/L Potassium 4.4 (3.3-5.1) mmol/L Chloride 96 (96-108) mmol/L Carbon Dioxide 29 (22-29) mmol/L Anion Gap 15 (12-20) BUN 12 (9-16) mg/dL Creatinine 0.73 (0.5-1.4) mg/dL Estim Creat Clear Calc 56.6 Estimated GFR > 60 Random Glucose 103 (60-115) mg/dL Calcium 9.3 (8.4-10.2) mg/dL Narrative Narrative: EKG 04/2024 Intra-atrial conduction delay RSR' V1 Low QRS voltage in precordial leads Airway Mallampati Class: II TM Dist: >3cm Assessment and Plan Assessment Anesthesia Assessment: Chart Reviewed Final Anesthetic Review Family History of Problems with Anesthesia: No History of Problems with Anesthesia: No Documented by User: Karen Owen MD 08/26/24 07:28 [facility] Past Medical History Medical History Pericarditis Difficulty swallowing Hiatal hernia GERD (gastroesophageal reflux disease) Incontinence of urine Dementia Seasonal allergies Sacroiliitis Post-Lyme disease syndrome Lyme disease Chronic fatigue syndrome Bronchiectasis Fibromyalgia Dyslipidemia Renal artery stenosis Tobacco use Coronary atherosclerosis due to severely calcified coronary lesion COVID-19 vaccine administered Kyphosis deformity of spine Claudication IBS (irritable bowel syndrome) Hx of Lyme disease Restless leg syndrome HTN (hypertension) Back pain Arthritis DJD (degenerative joint disease) Thyroid disease Surgical History Surgical History History of total right knee replacement Hx of lumbar discectomy History of total left knee replacement History of total left hip arthroplasty Hx of section Hx of tubal ligation Hx of inguinal hernia repair Hx of cervical discectomy History of back surgery History of esophagogastroduodenoscopy (EGD) H/O colonoscopy Social History Social History Are you a primary anesthesiologist and critical care to a significant other at home: No Do you presently have visiting nurse or other home services: No Patient Tobacco Use Status: Former Tobacco user Tobacco use type: Cigarette Cigarettes Per Day: 8 Years Smoked: 50 Use of substances other than those prescribed or required for medical reasons: No Have you been hit, kicked, punched, or otherwise hurt by someone within the past year? If so, by whom?: No Are you DNR?: No Advance Directives: No Advance Directives Information Provided: Yes Advance Directives on File: No Recently lost weight without trying: Yes How much weight loss: 2-13 pounds Nutrition Risks: No Nutritional Risk Patient : No : No Poor oral hygiene: No Meds Allergies Allergy/AdvReac Type Severity Reaction Status Date / Time metronidazole [From FLAGYL] Allergy Severe UNRESPONSIV Verified 08/26/24 07:15 E Sulfa (Sulfonamide Allergy Severe UNRESPONSIV Verified 08/26/24 07:15 Antibiotics) E [SULFA (SULFONAMIDE ANTIBIOTICS)] celecoxib [From CELEBREX] Allergy Unknown CONTRAINDIC Verified 08/26/24 07:15 ATED colchicine Allergy Unknown Verified 08/26/24 07:15 hydromorphone Allergy Unresponsiv Verified 08/26/24 07:15 e levofloxacin [From Levaquin] Allergy Nausea Verified 08/26/24 07:15 Home Medications ?Medication ?Instructions ?Recorded ?Confirmed ?Last Taken ?Type carvedilol 12.5 mg tablet 1 tab PO BID 04/12/21 08/20/24 08/26/24 History chlorzoxazone 500 mg tablet 1 tab PO DAILY PRN Muscle Pain 04/12/21 08/20/24 Unknown History gabapentin 100 mg capsule 100 mg PO BEDTIME 04/12/21 08/20/24 Unknown History gabapentin 300 mg capsule 300 mg PO BEDTIME 04/12/21 08/20/24 Unknown History hydrocodone 5 mg-acetaminophen 325 1 tab PO Q6-8H PRN Pain 04/12/21 08/20/24 Unknown History mg tablet lisinopril 40 mg tablet 1 tab PO DAILY 04/12/21 08/20/24 Unknown History tramadol 50 mg tablet 1 tab PO Q6-8H PRN Pain 04/12/21 08/20/24 Unknown History Bacillus coagulans-inulin 1 1 cap PO DAILY 08/20/24 08/20/24 Unknown History billion cell-250 mg capsule amlodipine 5 mg tablet 5 mg PO DAILY 08/20/24 08/20/24 08/26/24 History amoxicillin 500 mg capsule 1,000 mg PO ONCE 08/20/24 08/20/24 Unknown History aspirin 325 mg tablet 325 mg PO BID 08/20/24 08/20/24 Unknown History donepezil 10 mg tablet 10 mg PO BEDTIME 08/20/24 08/20/24 Unknown History fexofenadine 180 mg tablet 180 mg PO DAILY 08/20/24 08/20/24 Unknown History ibuprofen 200 mg tablet 200 mg PO Q6H PRN Pain 08/20/24 08/20/24 Unknown History levothyroxine 75 mcg tablet 75 mcg PO DAILY 08/20/24 08/20/24 08/26/24 History magnesium oxide 1,000 mg PO BID 08/20/24 08/20/24 Unknown History hndaeesjlkdn-[id number]-pyidhs 1 tab PO DAILY 08/20/24 08/20/24 Unknown History tablet (Multivitamin 50 Plus tablet) omeprazole 40 mg capsule,delayed 40 mg PO QAM 08/20/24 08/20/24 08/26/24 History release prochlorperazine maleate 10 mg 10 mg PO BID PRN Nausea 08/20/24 08/20/24 Unknown History tablet rosuvastatin 5 mg tablet 10 mg PO BEDTIME 08/20/24 08/20/24 Unknown History Exam Airway Neck ROM: Full Assessment and Plan Final Anesthetic Review ASA Class: II Final Preanesthetic Review: No Changes in Pt Med Stat, Consent Obtained/Reviewed and Anes Risks/Benef Reviewed Patient Risk: Intermediate Procedure Risk: Intermediate Anesthetic Plan Anesthetic Plan: GA Disposition: Standard PACU
[2024-08-20 13:30] LABS: Hematocrit 37.5 % (37.0-47.0); Hemoglobin 12.8 g/dl (12.0-16.0); Mean Corpuscular HGB Conc 34.1 g/dl (31.0-35.0); Mean Corpuscular Hemoglobin 32.1 pg (27.0-33.0); Mean Platelet Volume 10.2 fL (9.4-12.3); Platelet Count 241 X10*3/uL (160-400); Red Blood Count 3.99 X10*6/uL (4.20-5.50); Red Cell Distribution Width 12.4 % (11.0-16.0)
[2024-08-20 14:09] LABS: Anion Gap 15 (12-20); Blood Urea Nitrogen 12 mg/dL (9-16); Calcium 9.3 mg/dL (8.4-10.2); Carbon Dioxide 29 mmol/L (22-29); Chloride 96 mmol/L (96-108); Creatinine Clr Calc Pharmacy 56.6; Estimated Glomerular Filt Rate > 60; Glucose Random 103 mg/dL (60-115); Potassium 4.4 mmol/L (3.3-5.1); Sodium 136 mmol/L (135-145)
--- OUTSIDE RECORDS SUMMARY | 2024-08-26 06:37 | XMS_ITS | Continuity of Care Document ---
Author Organization [facility] Address [address] [address]- Care Team Providers Care Line Installer Repairer Name Role Phone Frances SALINAS, Celestina Primary Care Physician Encounter [facility] Date(s): 12/28/20 - 01/27/21 [facility] [address] [place] [id number] Attending Physician: Renetta Low Admitting Physician: AdmRenetta duenas Referring Physician: AdmtrRenetta Allergies, Adverse Reactions, Alerts Substance Reaction Severity Status sulfa drugs Active Flagyl Active Formaldehyde Rash Persistent Mild Active CeleBREX Active Medications Compazine Tablet = 5 mg, By Mouth, 4 times a day, PRN as needed for nausea/vomiting, 0 Refills, Maintenance, 02/16/20 15:34:00 EDT, Tablet Start Date: 02/16/20 Status: Ordered Doxycycline 100 mg, By Mouth, Every 12 hours, Maintenance, 02/16/20 17:12:00 EDT Start Date: 02/16/20 Stop Date: 02/23/20 Status: Ordered gabapentin 100 mg oral capsule 400 mg, 4, capsule, By Mouth, Daily at bedtime, Refills 0, Maintenance, 02/17/20 11:37:00 EDT Start Date: 02/17/20 Status: Ordered ibuprofen 200 mg oral tablet See Instructions, PRN, 1-2 tablet By Mouth Every 8 hours as needed, Refills 0, Maintenance, for pain, 02/16/20 15:33:00 EDT, Instructions Replace Required Details Start Date: 02/16/20 Status: Ordered Levoxyl 0.1 mg oral tablet 1 tablet = 100 mcg, By Mouth, Daily, # 30 tablet, 0 Refills, Maintenance, Tablet Start Date: 09/27/13 Status: Ordered lisinopril 40 mg oral tablet 1 tablet = 40 mg, By Mouth, Daily, # 30 tablet, 0 Refills, Maintenance, 02/16/20 17:05:00 EDT, Tablet Start Date: 02/16/20 Status: Ordered magnesium oxide 400 mg oral tablet 1 tablet = 400 mg, By Mouth, Daily, 0 Refills, Maintenance, 02/08/15 10:39:00 Start Date: 02/08/15 Status: Ordered Parafon Forte DSC 500 mg oral tablet 1 tablet = 500 mg, By Mouth, 3 times a day, PRN Pain , Severe, 0 Refills, Maintenance Start Date: 09/27/13 Status: Ordered Probiotic Formula oral capsule 2 capsule, By Mouth, Daily, 0 Refills, Maintenance Start Date: 09/27/13 Status: Ordered simvastatin 20 mg oral tablet 20 mg, 1, tablet, By Mouth, Daily at bedtime, # 30 tablet, Refills 0, Tot. Refills 0, Maintenance, 02/17/20 11:37:00 EDT, Route to Pharmacy Electronically, [facility], 167.6, cm, 02/17/20 10:58:00 EDT, Height, 72.1, kg, 02/16/20 17:35:00 EDT, Dry... Start Date: 02/17/20 Status: Ordered tramadol 50 mg oral tablet 1 tablet = 50 mg, By Mouth, Daily, PRN Pain , Severe, 0 Refills, Maintenance Start Date: 09/27/13 Status: Ordered Vicodin HP 660 mg-10 mg oral tablet 0.5 tab, By Mouth, Every 6 hours, PRN Pain , Severe, 0 Refills, Maintenance, Tablet Start Date: 09/28/13 Status: Ordered Problem List Condition Effective Dates Status Health Status Inform ant Hypothyroidism(Confirmed) Active IBS (irritable bowel syndrome)(Confirmed) Active Raynauds syndrome(Confirmed) Active Spinal stenosis(Confirmed) Active Social History Social History Type Response Smoking Status Current every day jana reynolds; Type: Cigarettes entered on: 02/08/15 Sex
--- OUTSIDE RECORDS SUMMARY | 2024-08-26 06:37 | XMS_ITS | Continuity of Care Document ---
Author Organization [facility] Address [address] [place] [address]- Care Team Providers Care Career Counselor Name Role Phone Lucero SALINAS, Devaughn Negron Primary Care Physician Encounter [facility] [place] Date(s): 07/17/23 - 07/24/23 [facility] [address] [place] [address]- Attending Physician: Flavio Ambrose NP Allergies, Adverse Reactions, Alerts Substance Reaction Severity Status colchicine Active Formaldehyde Rash Persistent Mild Active CeleBREX unresponsive Active sulfa drugs unresponsive. Active Flagyl Active Medications acetaminophen 325 mg oral tablet 650 mg, By Mouth, Every 6 hours, may take OTC not to exceed 3000 mg/day, Refills 0, Maintenance, 02/13/23 7:34:00 EDT, Partial fill upon patient request if the prescription is for a schedule II opioid drug. Start Date: 02/13/23 Status: Ordered amLODIPine 5 mg oral tablet 5 mg, By Mouth, Daily, # 30 tablet, Refills 0, Tot. Refills 0, Maintenance, 06/12/23 10:24:00 EDT, Route to Pharmacy Electronically, [facility], Partial fill upon patient request if the prescription is for a schedule II opioid drug., 163, cm, ... Start Date: 06/12/23 Stop Date: 07/12/23 Status: Ordered Aspirin Tablet 325 mg, By Mouth, 2 times a day, Refills 0, Maintenance, 02/13/23 7:34:00 EDT, Partial fill upon patient request if the prescription is for a schedule II opioid drug. Start Date: 02/13/23 Status: Ordered Coreg 12.5 mg oral tablet 12.5 mg, 1, tablet, By Mouth, 2 times a day, # 60 tablet, Refills 0, Tot. Refills 0, Maintenance, 06/12/23 10:24:00 EDT, Route to Pharmacy Electronically, [facility], Partial fill upon patient request if the prescription is for a schedule II opio... Start Date: 06/12/23 Status: Ordered donepezil 10 mg oral tablet 10 mg, 1, tablet, By Mouth, Daily at bedtime, # 90 tablet, Refills 2, Tot. Refills 2, Maintenance, 03/18/23 13:19:00 EDT, Route to Pharmacy Electronically, [facility], Partial fill upon patient request if the prescription is for a schedule II opi... Start Date: 03/18/23 Status: Ordered gabapentin 100 mg oral capsule 400 mg, 4, capsule, By Mouth, Daily at bedtime, Refills 0, Maintenance, 02/17/20 11:37:00 EDT Start Date: 02/17/20 Status: Ordered Levoxyl 0.1 mg oral tablet 1 tablet = 100 mcg, By Mouth, Daily, # 30 tablet, 0 Refills, Maintenance, Tablet Start Date: 09/27/13 Status: Ordered lisinopril 40 mg oral tablet 1 tablet = 40 mg, By Mouth, Daily, # 30 tablet, 0 Refills, Maintenance, 06/12/23 10:24:00 EDT, Tablet, [facility], Partial fill upon patient request if the prescription is for a schedule II opioid drug., 163, cm, 06/11/23 9:38:00 EDT, Height, 66.... Start Date: 06/12/23 Status: Ordered MiraLax Powder 1 pack/packet = 17 Gm, By Mouth, Daily, PRN Constipation, 0 Refills, Maintenance, 02/13/23 7:34:00 EDT, Powder, Partial fill upon patient request if the prescription is for a schedule II opioid drug. Start Date: 02/13/23 Status: Ordered Omeprazole = 40 mg, By Mouth, Daily, 0 Refills, Maintenance, 12/03/21 11:57:00 EST, Partial fill upon patient request if the prescription is for a schedule II opioid drug. Start Date: 12/03/21 Status: Ordered Parafon Forte DSC 500 mg oral tablet 1 tablet = 500 mg, By Mouth, 3 times a day, PRN Pain , Severe, 0 Refills, Maintenance Start Date: 09/27/13 Status: Ordered Probiotic Formula oral capsule 2 capsule, By Mouth, Daily, 0 Refills, Maintenance Start Date: 09/27/13 Status: Ordered Problem List Condition Confirmation Course Effective Dates Status H ealth Status Informant Alzheimer's dementia without behavioral disturbance 1 Confirmed Active Hypothyroidism Confirmed Active IBS (irritable bowel syndrome) Confirmed Active Raynauds syndrome Confirmed Active Spinal stenosis Confirmed Active 1Alzheimer's disease with vascular contribution. Social History Social History Type Response Tobacco Other: Patient repor ts smoking a pack a day about 40 years and quit last year in November.. Sex Patient Care team information Care Team Personnel Name: Fawn Alberto RN Position: [facility] AMB Nurse Member Role: Primary Care Nurse Name: Melinda Roa RN Position: [facility] SN RN Member Role: Primary Care Nurse Name: Vasyl Arceo RN Position: [facility] RN Member Role: Primary Care Nurse Name: Sweetie Maciel RN Position: [facility] RN Member Role: Primary Care Nurse Name: Lois Sousa RN Position: [facility] RN Member Role: Primary Care Nurse Name: Bianca Pacheco LPN Position: [facility] RN Member Role: Primary Care Nurse Name: Carlene Humphrey RN Position: [facility] RN Member Role: Primary Care Nurse Name: Devaughn Barker MD Position: [facility] Outreach Member Role: PCP Address: Address: [address] [place] [id number] Name: Carlene Blanca RN Position: [facility] RN Member Role: Primary Care Nurse Care Team Related Persons Name: FELECIA BARCLAY Address: home [address] [place], [place] Name: FELECIA BARCLAY Address: home [address] [place], [place] Name: NATE BARCLAY Address: home [address] [place] [id number]
--- OUTSIDE RECORDS SUMMARY | 2024-08-26 06:37 | XMS_ITS | Continuity of Care Document ---
Author Organization [facility] Address [address] [address]- Care Team Providers Care First Cook Name Role Phone Devaughn Barker MD Primary Care Physician [place] [facility] [place] 04/19/24 - 05/19/24 [facility] [address] [address] Allergies, Adverse Reactions, Alerts Substance Reaction Severity Status colchicine Active sulfa drugs unresponsive. Active Flagyl Active Dilaudid Active Formaldehyde Rash Persistent Mild Active CeleBREX unresponsive Active Medications acetaminophen 325 mg oral tablet 650 mg, By Mouth, Every 6 hours, may take OTC not to exceed 3000 mg/day, Refills 0, Maintenance, 02/13/23 7:34:00 EDT, Partial fill upon patient request if the prescription is for a schedule II opioid drug. Start Date: 02/13/23 Status: Ordered acetaminophen-HYDROcodone 325 mg-5 mg oral tablet 0 Refills, Maintenance, 10/13/23 11:29:00 EST, Partial fill upon patient request if the prescription is for a schedule II opioid drug. Start Date: 10/13/23 Status: Ordered Rachna 24 Hour Allergy oral tablet 1 tablet = 180 mg, By Mouth, Daily, 0 Refills, Maintenance, 03/15/24 13:01:00 EDT, Partial fill upon patient request if the prescription is for a schedule II opioid drug. Start Date: 03/15/24 Status: Ordered amLODIPine 5 mg oral tablet [...] Status: Ordered donepezil 10 mg oral tablet 1, tablet, By Mouth, Daily at bedtime, # 90 tablet, Refills 2, Maintenance, 09/22/23 12:30:00 EST, Route to Pharmacy Electronically, [facility], 163, cm, 06/11/23 9:38:00 EDT, Height, 66.4, kg, 06/10/23 15:49:00 EDT, Dry Weight Start Date: 09/22/23 Status: Ordered gabapentin 100 mg oral capsule [...] opioid drug. Start Date: 02/13/23 Status: Ordered omeprazole 40 mg oral enteric coated capsule 1 capsule = 40 mg, By Mouth, 2 times a day, # 90 capsule, 3 Refills, Maintenance, 03/08/24 11:43:00EDT, EC Capsule, [facility], Partial fill upon patient request if the prescription is for a schedule II opioid drug., 163, cm, 03/08/24 10:30:00 E... Start Date: 03/08/24 Status: Ordered Parafon Forte DSC 500 mg oral tablet 1 tablet = 500 mg, By Mouth, 3 times a day, PRN Pain , Severe, 0 Refills, Maintenance Start Date: 09/27/13 Status: Ordered Probiotic Formula oral capsule 2 capsule, By Mouth, Daily, 0 Refills, Maintenance Start Date: 09/27/13 Status: Ordered traMADol 50 mg oral tablet 0 Refills, Maintenance, 10/13/23 11:29:00 EST, Partial fill upon patient request if the prescription is for a schedule II opioid drug. Start Date: 10/13/23 Status: Ordered Problem List Condition Confirmation Course Effective Dates Status H ealth Status Informant Alzheimer's dementia without behavioral disturbance 1 Confirmed Active Hypothyroidism Confirmed Active IBS (irritable bowel syndrome) Confirmed Active Raynauds syndrome Confirmed Active Spinal stenosis Confirmed Active 1Alzheimer's disease with vascular contribution. Social History Social History Type Response Smoking Status Former smoker, quit more than 30 days ago entered on: 10/13/23 Sex Patient Care team information Care Team Personnel Name: Fawn Alberto RN Position: [facility] AMB Nurse Member Role: Primary Care Nurse Name: Melinda Roa RN Position: [facility] RN Member Role: Primary Care Nurse Name: Vasyl Arceo RN Position: [facility] RN Member Role: Primary Care Nurse Name: Lois Sousa RN Position: [facility] RN Member Role: Primary Care Nurse Name: Carlene Humphrey RN Position: [facility] Onco RN Member Role: Primary Care Nurse Name: Devaughn Barker MD Position: [facility] Outreach Member Role: PCP Address: Address: [address] [place] [address]- Care Team Related Persons Name: FELECIA BARCLAY Address: home [address] [place] [address] Name: FELECIA BARCLAY Address: home [address] [place] [address] Name: NATE BARCLAY Address: home [address] [place] [address]
--- OUTSIDE RECORDS SUMMARY | 2024-08-26 06:37 | XMS_ITS | Continuity of Care Document ---
Author Organization [facility] Address [address] [place] [address]- Care Team Providers Care Blast Furnace Checker Name Role Phone Lucero SALINAS, Devaughn Negron Primary Care Physician [phone] Encounter [facility] [place] Date(s): 03/18/23 - 03/25/[address] [address]- Attending Physician: Flavio Ambrose NP Allergies, Adverse Reactions, Alerts Substance Reaction Severity Status colchicine Active sulfa drugs unresponsive. Active Flagyl Active Formaldehyde Rash Persistent Mild Active CeleBREX unresponsive Active Medications acetaminophen 325 mg oral tablet 650 mg, By Mouth, Every 6 hours, may take OTC not to exceed 3000 mg/day, Refills 0, Maintenance, 02/13/23 7:34:00 EDT, Partial fill upon patient request if the prescription is for a schedule II opioid drug. Start Date: 02/13/23 Status: Ordered Aspirin Tablet 325 mg, By Mouth, 2 times a day, Refills 0, Maintenance, 02/13/23 7:34:00 EDT, Partial fill upon patient request if the prescription is for a schedule II opioid drug. Start Date: 02/13/23 Status: Ordered Colace Capsule 100 mg, 1, capsule, By Mouth, 2 times a day, Refills 0, Maintenance, 02/13/23 7:34:00 EDT, Partial fill upon patient request if the prescription is for a schedule II opioid drug. Start Date: 02/13/23 Status: Ordered Coreg 12.5 mg oral tablet 12.5 mg, 1, tablet, By Mouth, 2 times a day, # 180 tablet, Refills 0, Maintenance, 12/03/21 11:56:00 EST, Partial fill upon patient request if the prescription is for a schedule II opioid drug. Start Date: 12/03/21 Status: Ordered donepezil 10 mg oral tablet [...] EDT, Tablet Start Date: 02/16/20 Status: Ordered MiraLax Powder 1 pack/packet = [...] Refills, Maintenance Start Date: 09/27/13 Status: Ordered senna 187 mg oral tablet 1 tablet = 8.6 mg, By Mouth, Daily at bedtime, PRN as needed for constipation, 0 Refills, Maintenance, 02/13/23 7:34:00 EDT, Tablet, Partial fill upon patient request if the prescription is for a schedule II opioid drug. Start Date: 02/13/23 Status: Ordered Problem List Condition Confirmation Course [...] Team Personnel Name: Fawn Alberto RN Position: [facility] AMB Nurse Member Role: Primary Care Nurse Name: Melinda Roa RN Position: [facility] RN Member Role: Primary Care Nurse Name: Vasyl Arceo RN Position: [facility] RN Member Role: Primary Care Nurse Name: Sweetie Maciel RN Position: [facility] RN Member Role: Primary Care Nurse Name: Lois Sousa RN Position: [facility] RN Member Role: Primary Care Nurse Name: Bianca Pacheco LPN Position: [facility] RN Member Role: Primary Care Nurse Name: Carlene Humphrey RN Position: [facility] RN Member Role: Primary Care Nurse Name: Devaughn Barker MD Position: [facility] Outreach Member Role: PCP Address: Address: [address] [place] [id number] Name: Carlene Blanca RN Position: [facility] RN Member Role: Primary Care Nurse Care Team Related Persons Name: FLEECIA BARCLAY Address: [address] [place] [address] Name: FELECIA BARCLAY Address: [address] [place], [place] Name: NATE BARCLAY Address: home [address] [place] [address]
--- OUTSIDE RECORDS SUMMARY | 2024-08-26 06:37 | XMS_ITS | Continuity of Care Document ---
Author Organization [facility] Address [address] [address]- Care Team Providers Care German Professor Name Role Phone Devaughn Barker MD Primary Care Physician Encounter [facility] [place] Date(s): 02/18/23 - 03/20/23 [facility] [address] [address] Allergies, Adverse Reactions, Alerts Substance Reaction Severity [...] Team Personnel Name: Fawn Alberto RN Position: [facility] Nurse Member Role: Primary Care Nurse Name: Melinda Roa RN Position: [facility] SN RN Member Role: Primary Care Nurse Name: Vasyl Arceo RN Position: [facility] RN Member Role: Primary Care Nurse Name: Sweetie Maciel RN Position: [facility] RN Member Role: Primary Care Nurse Name: Lois Sousa RN Position: [facility] RN Member Role: Primary Care Nurse Name: Bianca Pacheco LPN Position: [facility] RN Member Role: Primary Care Nurse Name: Carlene Humphrey RN Position: [facility] RN Member Role: Primary Care Nurse Name: Devaughn Barker MD Position: [facility] Outreach Member Role: PCP Address: Address: [address] [place] [address] Name: Carlene Blanca RN Position: [facility] RN Member Role: Primary Care Nurse Care Team Related Persons Name: FELECIA BARCLAY Address: home [address] [place], [place] Name: FELECIA BARCLAY P Address: [address] [place], [place] Name: NATE BARCLAY Address: home [address] [place] [address]
--- OUTSIDE RECORDS SUMMARY | 2024-08-26 06:37 | XMS_ITS | Continuity of Care Document ---
Author Organization [facility] Address [address] [place] [address]- Care Team Providers Care Bonderizer Operator Name Role Phone Lucero SALINAS, Devaughn Negron Primary Care Physician [place] [facility] [place] - 03/06/[address] [address] Attending Physician: AdmRenetta duenas Admitting Physician: AdmtrRenetta Referring Physician: Admtr, Ar8 Allergies, Adverse Reactions, Alerts Substance Reaction Severity [...] drug. Start Date: 12/03/21 Status: Ordered donepezil 5 mg oral tablet 2.5 mg, 0.5, tablet, By Mouth, Daily at bedtime, take 2.5mg at bedtime x 2 weeks then increase to 5mg at bedtime first dose 02/17/2023, Refills 0, Maintenance, 02/17/23 14:11:00 EDT, Partial fill uponpatient request if the prescription is for a schedu... Start Date: 02/17/23 Status: Ordered gabapentin 100 mg oral capsule [...] Team Personnel Name: Fawn Alberto RN Position: [facility] AMB Nurse Member Role: Primary Care Nurse Name: Melinda Roa RN Position: [facility] RN Member Role: Primary Care Nurse Name: Vasyl Arceo RN Position: [facility] RN Member Role: Primary Care Nurse Name: Sweetie Maciel RN Position: [facility] RN Member Role: Primary Care Nurse Name: Lois Sousa RN Position: [facility] RN Member Role: Primary Care Nurse Name: Bianca Pacheco LPN Position: [facility] RN Member Role: Primary Care Nurse Name: Carlene Humphrey RN Position: [facility] RN Member Role: Primary Care Nurse Name: Devaughn Barker MD Position: [facility] Outreach Member Role: PCP Address: Address: [address] [place] [id number] Name: Carlene Blanca RN Position: [facility] RN Member Role: Primary Care Nurse Care Team Related Persons Name: FELECIA BARCLAY Address: [address] [place], [place] Name: FELECIA BARCLAY Address: [address] [place], [place] Name: NATE BARCLAY Address: [address] [place] [address]
--- OUTSIDE RECORDS SUMMARY | 2024-08-26 06:37 | XMS_ITS | Continuity of Care Document ---
Author Organization [facility] Address [address] [place] [address]- Care Team Providers Care Senior Manufacturing Engineer Name Role Phone Devaughn Barker MD Primary Care Physician [phone] Encounter [facility] [place] Date(s): 03/19/24 - 04/18/24 [facility] [address] [place] [address]- [place] Allergies, Adverse Reactions, Alerts Substance Reaction Severity [...] a schedule II opioid drug., 163, cm, 08... Start Date: 06/12/23 Stop Date: 07/12/23 Status: [...] 09/22/23 12:30:00 EST, Route to Pharmacy Electronically, [facility], 163, cm, 06/11/23 9:38:00 EDT, Height, [...] Team Personnel Name: Fawn Alberto RN Position: [facility] AMB Nurse Member Role: Primary Care Nurse Name: Melinda Roa RN Position: [facility] SN RN Member Role: Primary Care Nurse Name: Vasyl Arceo RN Position: [facility] RN Member Role: Primary Care Nurse Name: Lois Sousa RN Position: [facility] RN Member Role: Primary Care Nurse Name: Carlene Humphrey RN Position: [facility] Onco RN Member Role: Primary Care Nurse Name: Devaughn Barker MD Position: [facility] Outreach Member Role: PCP Address: Address: [address] [place] [address]- Care Team Related Persons Name: FELECIA BARCLAY Address: [address] [place] [address] Name: FELECIA BARCLAY Address: home [address] [place] [address] Name: NATE BARCLAY Address: home [address] [place] [address]
--- OUTSIDE RECORDS SUMMARY | 2024-08-26 06:37 | XMS_ITS | Continuity of Care Document ---
Author Organization [facility] ter Address [address] [place] [address]- Care Team Providers Care Paving Block Cutter Name Role Phone Devaughn Barker MD Primary Care Physician Encounter 06/02/24 - 06/03/[address] [id number] Attending Physician: Not on Staff, Attending MD Referring Physician: Not on Staff, Referring MD Allergies, Adverse Reactions, Alerts Substance Reaction Severity Status colchicine Active Dilaudid Active CeleBREX unresponsive Active sulfa drugs unresponsive. Active Flagyl Active Formaldehyde Rash Persistent Mild Active Medications acetaminophen 325 mg oral tablet [...] 09/22/23 12:30:00 EST, Route to Pharmacy Electronically, [facility], 163, cm, 06/11/23 9:38:00 EDT, Height, [...] Confirmed Active 1Alzheimer's disease with vascular contribution. Results Radiology Reports * Exam Date Time Procedure Performing Provider Status 06/02/24 3:31 PM MRI Lumbar Spine W+W/O Contrast Auth (Verified) Notes: (MRI Lumbar Spine W+W/O Contrast) Reason For Exam: MRI of the lumbar spine with and without contrast to evaluate for right sided nerve root impingement . Patient with progressi;MRI of the lumbar spine with and without contrast to evaluate for right sided nerve root impingement . Patient with progressi RESULT: MRI Lumbar Spine W+W/O Contrast [facility] VISIT NUMBER :[id number] Patient Name: Amaris Barclay Date of : 1950 Date of Exam: 06-02-2024 Referring Physician: [facility] [address] [place] [id number] Exam: MR Lumbar Spine (C-/C+) CPT 52113 Room Description: [place] [facility] 3T HISTORY: Evaluate for right-sided nerve root impingement. Progressively worsening right anterior thigh pain. TECHNIQUE: Multiplanar multisequence MRI of the lumbar spine was obtained before and after the administration of 13 cc of Dotarem. COMPARISON: 08/15/2019 FINDINGS: Mild degenerative anterolisthesis of L2 on L3 and L5 on S1, unchanged. Mild loss of height of the left side of the L1 vertebral body is noted along the inner margin of the spinal curvature. The lumbar vertebral bodies are similar in height. The lumbar discs are desiccated. Severe loss of height of T10-T11, T11-T12, T12-L1, and L1-L2. Marginal osteophytes and facet arthroses are present at these levels. At T10-T11, there is moderate-severe central canal narrowing with myelomalacic changes of the lower thoracic cord. Severe loss of height of the right side of L4-L5 is again noted. Loss of disc space height at L2-L3 and L3-L4, not significantly changed. Vacuum disc phenomenon is noted at multiple levels. Modic type I endplate change at L4-L5 is again noted. There is new mild Modic type I endplate change on the right at L3-L4. Fatty atrophy of the posterior paraspinal musculature is noted. Right lower pole renal cyst measuring 31 mm. The conus terminates at approximately L1-L2. No epidural fluid collection. No abnormal leptomeningeal enhancement. At T12-L1, there is a concentric disc-osteophyte complex with a superimposed central disc extrusion or ossified disc extrusion extending above the level of the disc space. Mild central canal narrowing (left greater than right). L1-L2: Concentric marginal spurring and facet arthrosis. Moderate-severe central canal narrowing is again noted. At least mild-moderate right and severe left foraminal stenosis. L2-L3: Bilateral laminotomy defects are present. No significant granulation tissue. Facet arthrosis is less pronounced in bulk when compared with the prior examination. A broad right subarticular-foraminal disc protrusion is present with mild right central canal narrowing. Overall, central canal narrowing has significantly decreased. Mild-moderate right and moderate left foraminal narrowing. L3-L4: Concentric disc-osteophyte complex, facet arthrosis, and ligamentum flavum infolding. A new 5 mm medial right facet joint synovial cyst is present. This crowds multiple right-sided nerve roots within the thecal sac (series 5, image 26). The spinal canal is now moderate-severely to severely narrowed. Right subarticular recess narrowing is present with crowding of and probable compression of the right L4 nerve roots. Severe right and mild left foraminal stenosis. L4-L5: Right subarticular-foraminal disc-osteophyte complex with facet arthrosis and ligamentum flavum infolding. Mild right central canal and subarticular recess narrowing without traversing nerve root impingement. Moderate-severe right and minimal left foraminal narrowing. L5-S1: Facet arthrosis. Right foraminal disc protrusion. No new central canal stenosis. Mild right and minimal left foraminal narrowing. IMPRESSION: 1. Degenerative and postoperative changes of the lumbar spine in conjunction with a moderate S-shaped scoliosis of the thoracolumbar spine. Central canal stenosis at L3-L4 has increased, and the central canal is now moderate-severely to severely narrowed. Severe right foraminal narrowing is also noted at L3-L4, which could account for the patient's symptoms. Moderate-severe central canal narrowing is also noted at L1-L2 foraminal stenoses are also present at additional levels. Central canal narrowing at L2-L3 has decreased since the prior study. 2. Degenerative changes of the visualized lower thoracic spine with severe central canal narrowing at T10-T11 with myelomalacia. Electronically Signed By: Christian Walter MD Dictated By: Not on Staff , LUBNA SALINAS Dictated Date/Time: 06/02/24 5:17 pm Reviewed By: Not on Staff , LUBNA SALINAS Signed By: Not on Staff , LUBNA SALINAS Signed Date/Time: 06/02/24 5:17 pm Transcribed By: KATHY Transcribed Date/Time: 06/02/24 5:17 pm Social History Social History Type Response Smoking Status Former smoker, quit more than 30 days ago entered on: 10/13/23 Sex Patient Care team information Care Team Personnel Name: Fawn Alberto RN Position: [facility] CECILE Nurse Member Role: Primary Care Nurse Name: Melinda Roa RN Position: [facility] RN Member Role: Primary Care Nurse Name: Vasyl Arceo RN Position: [facility] RN Member Role: Primary Care Nurse Name: Lois Sousa RN Position: [facility] RN Member Role: Primary Care Nurse Name: Carlene Humphrey RN Position: [facility] Onco RN Member Role: Primary Care Nurse Name: Devaughn Barker MD Position: [facility] Outreach Member Role: PCP Address: Address: [address] [place] [address]- Care Team Related Persons Name: FELECIA BARCLAY Address: home [address] [place] [address] Name: FELECIA BARCLAY Address: [address] [place] [address] Name: NATE BARCLAY Address: home [address] [place] [id number]
--- OUTSIDE RECORDS SUMMARY | 2024-08-26 06:37 | XMS_ITS | Continuity of Care Document ---
Author Organization [facility] Address [address] [place] [address]- Care Team Providers Care Medical Policy Specialist Name Role Phone Lucero SALINAS, Devaughn Negron Primary [id number] Date(s): 01/27/23 - 02/03/[address] [address] Attending Physician: Flavio Ambrose NP Allergies, Adverse Reactions, Alerts Substance Reaction Severity Status sulfa drugs unresponsive. Active Flagyl Active Formaldehyde Rash Persistent Mild Active CeleBREX unresponsive Active Medications Coreg 12.5 mg oral tablet 12.5 mg, 1, tablet, By Mouth, 2 times a day, # 180 tablet, Refills 0, Maintenance, 12/03/21 11:56:00 EST, Partial fill upon patient request if the prescription is for a schedule II opioid drug. Start Date: 12/03/21 Status: Ordered donepezil 5 mg oral tablet See Instructions, Take one-half tablet once daily at bedtime for 2 weeks then take 1 tablet at bedtime, # 30 tablet, Refills 1, Tot. Refills 1, Maintenance, 01/27/23 10:10:00 EDT, Instructions Replace Required Details, Route to Pharmacy Electronically... Start Date: 01/27/23 Status: Ordered gabapentin 100 mg oral capsule 400 mg, 4, capsule, By Mouth, Daily at bedtime, Refills 0, Maintenance, 02/17/20 11:37:00 EDT Start Date: 02/17/20 Status: Ordered ibuprofen 600 mg oral tablet See Instructions, 1 tablet By Mouth 3 times a day for 7 days followed by 1 tab po bid for 7 days, #35 tablet, Refills 0, Tot. Refills 0, Maintenance, 12/04/21 13:45:00 EST, Instructions Replace Required Details, Route to Pharmacy Electronically, [facility] Start Date: 12/04/21 Status: Ordered Levoxyl 0.1 mg oral tablet 1 tablet = 100 mcg, By Mouth, Daily, # 30 tablet, 0 Refills, Maintenance, Tablet Start Date: 09/27/13 Status: Ordered lisinopril 40 mg oral tablet 1 tablet = 40 mg, By Mouth, Daily, # 30 tablet, 0 Refills, Maintenance, 02/16/20 17:05:00 EDT, Tablet Start Date: 02/16/20 Status: Ordered Omeprazole = 40 mg, By [...] Team Personnel Name: Fawn Alberto RN Position: [facility] AMB Nurse Member Role: Primary Care Nurse Name: Melinda Roa RN Position: [facility] RN Member Role: Primary Care Nurse Name: Carlene Humphrey RN Position: [facility] RN Member Role: Primary Care Nurse Name: Devaughn Barker MD Position: [facility] Outreach Member Role: PCP Address: Address: [address] [place] [address]- Care Team Related Persons Name: FELECIA BARCLAY Address: [address] [place] [address] Name: FELECIA BARCLAY Address: [address] [place], [place] Name: NATE BARCLAY Address: home [address] [place] [address]
--- OUTSIDE RECORDS SUMMARY | 2024-08-26 06:37 | XMS_ITS | Continuity of Care Document ---
Author Organization [facility] Address [address] [place] [address]- Care Team Providers Care Retail Advisor Name Role Phone Lucero SALINAS, Devaughn Negron Primary Care Physician Encounter [facility] Date(s): 02/26/24 - 03/04/24 [facility] [address] [place] [address]- Attending Physician: Flavio Ambrose NP Allergies, Adverse Reactions, Alerts Substance Reaction Severity Status colchicine Active CeleBREX unresponsive Active sulfa drugs unresponsive. Active Flagyl Active Dilaudid Active Formaldehyde Rash Persistent Mild Active Medications [...] opioid drug. Start Date: 10/13/23 Status: Ordered amLODIPine 5 mg oral tablet [...] 06/12/23 10:24:00 EDT, Route to Pharmacy Electronically, [facility], Partial fill upon patient request if the prescription is for a schedule II opio... Start Date: 06/12/23 Status: Ordered donepezil 10 mg oral tablet 1, tablet, By Mouth, Daily at bedtime, # 90 tablet, Refills 2, Maintenance, 09/22/23 12:30:00 EST, Route to Pharmacy Electronically, [facility], 163, cm, 06/11/23 9:38:00 EDT, Height, [...] opioid drug. Start Date: 12/03/21 Status: Ordered omeprazole 40 mg oral enteric coated capsule 1 capsule = 40 mg, By Mouth, Daily, # 90 capsule, 3 Refills, Maintenance, 11/26/23 15:48:00 EST, ECCapsule, [facility], Partial fill upon patient request if the prescription is for a schedule II opioid drug., 163, cm, 10/13/23 11:22:00 EST, [place]... Start Date: 11/26/23 Status: Ordered Parafon Forte DSC 500 mg [...] 30 days ago entered on: 10/13/23 Sex Note * Didier Davey: PERFORM, SIGN, VERIFY Event Display: Patient Education/Instruction Authored Date: [id number] [facility] *[facility] Clinical Summary Name AMARIS BARCLAY Age 74 Years 1950 PCP Lucero SALINAS, Devaughn Negron PCP Visit Date 02/26/2024 12:43:00 Additional Instructions: Scheduled Appointments?? Future Appointments ?*[facility]??[facility] ?[address]??[place],??[place],??[address] ?Phone:??--?Fax:??-- ?Appt. Date:??03/08/2024?10:30 AM ?Scheduled Provider:??Nelson Martinez MD Follow-Up Instructions ?? Diagnosis Alzheimer's disease, unspecified Medications: Please continue your medications until treatment is completed or stopped by your provider. Discuss any questions related to medications with your provider. Medications to Continue with No Changes These medications were not printed or sent to your pharmacy Acetaminophen (acetaminophen 325 mg oral tablet) 650 Milligram Oral every 6 hours. may take OTC not to exceed 3000 mg/day. Next Dose: Acetaminophen / Hydrocodone (acetaminophen-HYDROcodone 325 mg-5 mg oral tablet) Next Dose: Amlodipine (amLODIPine 5 mg oral tablet) 5 Milligram Oral Daily for 30 Days. Refills: 0. Next Dose: Aspirin (Aspirin Tablet) 325 Milligram Oral twice a day. Next Dose: bifidobacterium-lactobacillus (Probiotic Formula oral capsule) 2 capsule Oral Daily. Next Dose: Carvedilol (Coreg 12.5 mg oral tablet) 1 tab(s) Oral twice a day. Refills: 0. Next Dose: Chlorzoxazone (Parafon Forte DSC 500 mg oral tablet) 1 tab(s) Oral 3 times a day as needed Pain , Severe. Next Dose: Donepezil (donepezil 10 mg oral tablet) 1 tab(s) Oral Daily at Bedtime. Refills: 2. Next Dose: Gabapentin (gabapentin 100 mg oral capsule) 4 capsule Oral Daily at Bedtime. Next Dose: Levothyroxine (Levoxyl 0.1 mg oral tablet) 1 tab(s) Oral Daily. Next Dose: Lisinopril (lisinopril 40 mg oral tablet) 1 tab(s) Oral Daily. Refills: 0. Next Dose: Omeprazole 40 Milligram Oral Daily. Next Dose: Omeprazole (omeprazole 40 mg oral enteric coated capsule) 1 capsule Oral Daily. Refills: 3. Next Dose: Polyethylene Glycol 3350 (MiraLax Powder) 17 gram Oral Daily as needed Constipation. Next Dose: Tramadol (traMADol 50 mg oral tablet) Next Dose: Allergy Info:?? CeleBREX; Formaldehyde; Dilaudid; Flagyl; sulfa drugs; colchicine Medications Given This Visit Future Orders ?No future orders Future Orders ?No future orders Vital Signs Height Weight BMI Blood Pressure / Temperature Pulse Rate Respiratory Rate 02 Sat Mode of Delivery / You can now view a summary of your hospital visit from the comfort of your home through a free online portal called [employer]. [employer] is a website that allows you to securely view your medical information including discharge summary, medications and follow-up visits. ??You can alsosend a secure electronic message to your doctor???s office to request appointments, renew medications or just ask a question. You can enroll at [email or web address] or register during your next office visit. Disclaimer:?? The information provided is of a general nature and is intended to be used in conjunction with the recommendations and advice of your health care practitioner. ??Every effort has been made to ensure that the information provided is accurate and complete at the time it is provided to you however, as your needs change, or, as new ??information becomes available, different or additional instructions may be required. If you have questions, please consult with your primary care provider or pharmacist, as appropriate. ??This information is not intended to serve as substitution for assessment and evaluation by a qualified health care provider. If you do not have a primary care provider, you may find a [facility] provider by calling [facility] at [phone]. [facility], in keeping with [facility] guidance, no longer requires face masks for staff, patientsor visitors in most situations. Similar to time spent indoors at other locations, there is the chance that you were exposed to respiratory viruses during your time with us (such as flu or COVID-19).? If you develop symptoms concerning for a viral respiratory infection, please seek testing (and treatment if indicated) from your medical provider or home test kit. For information about the plan of care including goals and instructions for your diagnosis, please see the patient education orders section of this document. Patient Education Materials?? The content of this educational material or handout may have been modified, supplemented, or adapted from its original content and format to support your individualized medical care. Patient Care team information Care Team Personnel Name: Fawn Alberto RN Position: [facility] AMB Nurse Member Role: Primary Care Nurse Name: Melinda Roa RN Position: [facility] RN Member Role: Primary Care Nurse Name: Vaysl Arceo RN Position: [facility] RN Member Role: Primary Care Nurse Name: Lois Sousa RN Position: [facility] RN Member Role: Primary Care Nurse Name: Bianca Pacheco LPN Position: [facility] RN Member Role: Primary Care Nurse Name: Carlene Humphrey RN Position: [facility] Onco RN Member Role: Primary Care Nurse Name: Devaughn Barker MD Position: [facility] Outreach Member Role: PCP Address: Address: [address] [place] [address]- Care Team Related Persons Name: FELECIA BARCLAY Address: [address] [place] [address] Name: FELECIA BARCLAY Address: [address] [place] [address] Name: NATE BARCLAY Address: [address] [place] [address]
--- OUTSIDE RECORDS SUMMARY | 2024-08-26 06:37 | XMS_ITS | Continuity of Care Document ---
Author Organization [facility] Address [address] [place] [address]- Care Team Providers Care Container Finishing Inspector Name Role Phone Devaughn Barker MD Primary Care Physician Encounter [facility] Date(s): 12/20/21 - 01/19/22 [facility] [address] [address]- Attending Physician: Renetta Low Admitting Physician: AdmRenetta duenas Referring Physician: Admtr Ar8 Allergies, Adverse Reactions, Alerts Substance Reaction Severity Status sulfa drugs Active Flagyl Active CeleBREX Active Formaldehyde Rash Persistent Mild Active Medications atorvastatin 10 mg oral tablet 1 tablet = 10 mg, By Mouth, Daily, # 30 tablet, 0 Refills, Maintenance, 12/03/21 11:57:00 EST, Partial fill upon patient request if the prescription is for a schedule II opioid drug. Start Date: 12/03/21 Status: Ordered cloNIDine 0.1 mg oral tablet 0.1 mg, 1, tablet, By Mouth, 2 times a day, # 180 tablet, Refills 0, Maintenance, 12/03/21 11:56:00EST, Partial fill upon patient request if the prescription is for a schedule II opioid drug. Start Date: 12/03/21 Status: Ordered colchicine 0.6 mg oral tablet 0.6 mg, 1, tablet, By Mouth, Every 12 hours, # 60 tablet, Refills 0, Tot. Refills 0, Maintenance, 12/04/21 13:45:00 EST, Route to Pharmacy Electronically, [facility], Partial fill upon patient request if the prescription is for a schedul... Start Date: 12/04/21 Status: Ordered Coreg 12.5 mg oral tablet 12.5 mg, 1, tablet, By Mouth, 2 times a day, # 180 tablet, Refills 0, Maintenance, 12/03/21 11:56:00 EST, Partial fill upon patient request if the prescription is for a schedule II opioid drug. Start Date: 12/03/21 Status: Ordered gabapentin 100 mg oral capsule [...] Date: 09/27/13 Status: Ordered Problem List Condition Effective Dates Status Health Status Inform ant Hypothyroidism(Confirmed) Active IBS (irritable bowel syndrome)(Confirmed) Active Raynauds syndrome(Confirmed) Active Spinal stenosis(Confirmed) Active Social History Social History Type Response Smoking Status Current every day jana baler; Type: Cigarettes entered on: 02/08/15 Sex
--- OUTSIDE RECORDS SUMMARY | 2024-08-26 06:37 | XMS_ITS | Continuity of Care Document ---
Author Organization [facility] Address [address] [place] [address]- Care Team Providers Care Viscosity Tester Name Role Phone Lucero SALINAS, Devaughn Negron [id number] Date(s[facility]/18/23 - 04/17/23 [facility] [address] [place], [place] [address] Attending Physician: Renetta Low Admitting Physician: Admtr, Renetta Referring Physician: Admtr, Ar8 Allergies, Adverse Reactions, Alerts Substance Reaction Severity Status colchicine Active CeleBREX unresponsive Active Formaldehyde Rash Persistent Mild Active sulfa drugs unresponsive. Active Flagyl Active [...] Team Personnel Name: Fawn Alberto RN Position: [facility] AMB Nurse Member Role: Primary Care Nurse Name: Melinda Roa RN Position: [facility] SN RN Member Role: Primary Care Nurse Name: Vasyl Arceo RN Position: [facility] RN Member Role: Primary Care Nurse Name: Sweetie Maciel RN Position: [facility] RN Member Role: Primary Care Nurse Name: Lois Sousa RN Position: [facility] RN Member Role: Primary Care Nurse Name: Bianca Pacheco LPN Position: [facility] RN Member Role: Primary Care Nurse Name: Carlene Humphrey RN Position: [facility] RN Member Role: Primary Care Nurse Name: Devaughn Barker MD Position: [facility] Outreach Member Role: PCP Address: Address: [address] [place] [address] Name: Carlene Blanca RN Position: [facility] RN Member Role: Primary Care Nurse Care Team Related Persons Name: FELECIA BARCLAY Address: home [address] [place], [place] Name: FELECIA BARCLAY Address: [address] [place], [place] Name: NATE BARCLAY Address: home [address] [place] [address]
--- OUTSIDE RECORDS SUMMARY | 2024-08-26 06:37 | XMS_ITS | Continuity of Care Document ---
Author Organization [facility] ter Address [address] [place] [id number]- Care Team Providers Care Felter Tennis Balls Name Role Phone Lucero SALINAS, Devaughn Negron Primary Care Physician Encounter [facility] Date(s): 06/09/23 - 06/12/[address] [address]- Discharge Disposition: A-D/C Home Attending Physician: Chas Wells MD Admitting Physician: Eliane Davis MD Referring Physician: Not on Staff, Referring MD Allergies, Adverse Reactions, Alerts Substance Reaction Severity Status colchicine Active sulfa drugs unresponsive. Active Formaldehyde Rash Persistent Mild Active CeleBREX unresponsive Active Flagyl Active Medications acetaminophen 325 mg oral tablet 650 mg, By Mouth, Every 6 hours, may take OTC not to exceed 3000 mg/day, Refills 0, Maintenance, 02/13/23 7:34:00 EDT, Partial fill upon patient request if the prescription is for a schedule II opioid drug. Start Date: 02/13/23 Status: Ordered amLODIPine 5 mg oral tablet 5 mg, Tablet, By Mouth, 06/12/23 9:00:00 EDT Start Date: 06/12/23 Stop Date: 06/12/23 Status: Completed amLODIPine 5 mg oral tablet 5 mg, [...] II opio... Start Date: 06/12/23 Status: Ordered Coreg 12.5 mg oral tablet 12.5 mg, Tablet, By Mouth, Hold for: SBP<100, HR<60, 06/12/23 9:00:00 EDT Start Date: 06/12/23 Stop Date: 06/12/23 Status: Completed donepezil 10 mg oral tablet 10 mg, [...] 11:37:00 EDT Start Date: 02/17/20 Status: Ordered gabapentin 400 mg oral capsule 400 mg, Capsule, By Mouth, 06/11/23 21:00:00 EDT Start Date: 06/11/23 Stop Date: 06/11/23 Status: Completed Levoxyl 0.1 mg oral tablet 1 tablet = 100 mcg, By Mouth, Daily, # 30 tablet, 0 Refills, Maintenance, Tablet Start Date: 09/27/13 Status: Ordered lisinopril 20 mg oral tablet 40 mg, Tablet, By Mouth, 06/12/23 9:00:00 EDT Start Date: 06/12/23 Stop Date: 06/12/23 Status: Completed lisinopril 40 mg oral tablet 1 tablet [...] Exam Date Time Procedure Performing Provider Status 06/09/23 1:[address] Abd/Pelvis W/ IV Contrast Only Jayne Lundy; Auth (Verified) Notes: (CT Abd/Pelvis W/ IV Contrast Only) Reason For Exam: Diverticulitis, complication suspected;Other: RESULT: CT Abd/Pelvis W/ IV Contrast Only CT Abd/Pelvis W/ IV Contrast Only Hx of Present Illness: Pt coming from home. Onset of vomiting and diarrhea this morning. Denies fevers, SOB, CP; Reason: Other:; Diverticulitis, complication suspected; Clinical Question(s): Diverticulitis; TECHNIQUE: Spiral CT through the abdomen and pelvis with IV contrast formatted in 3 planes. 100 cc of Omnipaque 300 was administered intravenously. This study was performed without oral contrast. Weight-based protocol using automatic tube modulation was used to optimize exposure parameters. CTDIvol Body: 12.43 mGy, DLP Body: 579 mGy*cm. COMPARISON: 02/18/2011 FINDINGS: The heart is at the upper limits of normal for size. There is no pericardial effusion. Atelectasis is seen at the lung bases. The liver, gallbladder, spleen, pancreas, and adrenal glands are unremarkable. Symmetric renal contrast enhancement is demonstrated bilaterally. There is a 3.1 cm right lower pole cyst. No solid masses are present. Marked distention of the urinary bladder is seen, extending into the mid pelvis. The uterus is unremarkable. The appendix is normal in appearance. There is no bowel obstruction. Scattered colonic diverticula are noted without wall thickening or mesenteric stranding to suggest the presence of diverticulitis.There is no obstruction. There is no free air, free fluid, or lymphadenopathy. Degenerative changes within the spine are seen. There is a left total hip arthroplasty. Impression: Diverticulosis without evidence of diverticulitis. Marked distention of the urinary bladder which could be secondary to retention. WSN: [id number] Ordering Physician: Nehemiah Alvarado Dictated By: Aggie Christie MD Dictated Date/Time: 06/09/23 2:58 pm Reviewed By: Aggie Christie MD Signed By: Aggie Christie MD Signed Date/Time: 06/09/23 2:58 pm Transcribed By: ASHWIN Transcribed Date/Time: 06/09/23 2:56 pm Vital Signs Most recent to oldest [Reference Range]: 1 2 3 Height 163 cm (06/11/23 9:38 AM) 163 cm (06/10/23 3:45 PM) Weight 66.4 kg (06/10/23 3:45 PM) 70.7 kg (06/10/23 1:46 AM) Oxygen Saturation [94-100 %] 98 % (06/12/23 7:00 AM) 100 % (06/11/23 8:00 PM) 98 % (06/11/23 7:00 AM) Pulse Rate [55-90 bpm] 64 bpm (06/12/23 10:09 AM) 64 bpm (06/12/23 7:00 AM) 76 bpm (06/11/23 8:00 PM) Body Mass Index [18.5-24.99 kg/m2] 24.99 kg/m2 (06/10/23 3:45 PM) Blood Pressure [90-138/55-84 mm Hg] 146/86mm Hg *H* (06/12/23 10:09 AM) 146/86mm Hg *H* (06/12/23 10:09 AM) 146/86mm Hg *H* (06/12/23 10:09 AM) Respiratory Rate [16-30 br/min] 17 br/min (06/12/23 7:00 AM) 16 br/min (06/11/23 9:19 PM) 16 br/min (06/11/23 8:19 PM) Temperature [96.8-100.4 DegF] 97.7 DegF (06/12/23 7:00 AM) 97.9 DegF (06/11/23 8:00 PM) 97.3 DegF (06/11/23 7:00 AM) Liters per Minute 0 L/min (06/12/23 7:00 AM) 0 L/min (06/11/23 7:00 AM) Mode of Delivery (Oxygen) Room air (06/12/23 7:00 AM) Room air (06/11/23 8:00 PM) Room air (06/11/23 7:00 AM) Blood pressure sites Arm, left (06/12/23 7:00 AM) Arm, left (06/11/23 8:00 PM) Arm, left (06/11/23 9:38 AM) Temperature Route Oral (06/12/23 7:00 AM) Oral (06/11/23 8:00 PM) Oral (06/11/23 7:00 AM) Dry Weight 66.4 kg (06/10/23 3:45 PM) Weight Obtained Via Bed scale (06/10/23 3:45 PM) Dry Weight Obtained Via Bed scale (06/10/23 3:45 PM) Social History Social History Type Response Tobacco Other: Patient repor ts smoking a pack a day about 40 years and quit last year in November.. Sex History and physical note * Naya SALINAS, Skip Morin: PERFORM Event Display: History and Physical Hospital Authored Date: Patient: ??AMARIS BARCLAY ? Age:??73 Years?Sex:??Female?:??1950?? Chief Complaint/Reason for Consultation n/v/d History of Present Illness 06/10 ?? 73-year-old female with PMH including early Alzheimer's dementia, HTN, HLD, hypothyroidism, irritable bowel syndrome/chronic diarrhea, restless leg syndrome, fibromyalgia, chronic low back pain, tobacco dependence. ??Patient presented to ER with abdominal pain, nausea, vomiting and diarrhea. ?? The patient states that yesterday morning when she woke up she was doing fine, had breakfast and coffee. ??Subsequently she had diarrhea, 4 episodes. ??She states that she has chronic loose stool formany months, however this time it was more liquid, no blood. ??She also had nausea, mostly dry heaves with a few episodes of vomiting, no blood again. ??Also had abdominal cramp, mostly central, localized, no radiation, no aggravating or relieving factor, comes and goes. ??No fever, chill, cough, chest pain, shortness of breath, urinary symptoms, leg pain or leg swelling. ??She came to ER for further evaluation. ?? In ER her temperature initially slightly lower than normal, has normalized, initially blood pressure was elevated 197/105, currently blood pressure has improved as well. ??Labs unremarkable. ??Creatinine normal. ??Lipase normal. ??ALT normal. ??UA does not show any sign of any infection. ??EKG shows sinus rhythm with heart rate of 61, QTc 499, T wave inversion in anterior leads, T wave inversion in lead III. ?? CT scan of the abdomen: Impression: Diverticulosis without evidence of diverticulitis. Marked distention of the urinary bladder which could be secondary to retention. ?? Patient was given IV fluid and droperidol. ??Patient placed for further observation. Review of Systems All systems reviewed and negative except as in HPI. Objective Measurements?? Weight: 70.7 kg (06/10/23) ?? Vital Signs?? Temperature: 98 DegF (06/09/23 19:59:00) Temperature Route: Oral (06/09/23 19:59:00) Pulse Rate: 75 bpm (06/10/23 01:37:00) Respiratory Rate: 18 br/min (06/10/23 01:37:00) Systolic Blood Pressure:??146 mm Hg??High (06/10/23 01:37:00) Diastolic Blood Pressure: 82 mm Hg (06/10/23 01:37:00) Blood pressure sites: Arm, right (06/10/23 01:37:00) Mean Arterial Pressure: 136 mm Hg (06/09/23 11:50:00) Pulse Pressure: 64 mm Hg (06/10/23 01:37:00) Oxygen Saturation: 98 % (06/10/23 01:37:00) Mode of Delivery (Oxygen): Room air (06/10/23 01:37:00) Early Warning Score: 0 (06/10/23 01:38:29) ? Physical Exam Constitutional: ??Alert,??no acute distress, co-operative, lying on the bed, saturating well on room air. ?? Mental state: Oriented Head: ??Normocephalic, atraumatic. ?? Eye:?No discharge. ENT: No discharge. Neck: ??Supple,??no JVD. Cardiovascular: ??S1, S2. Regular rhythm. No MRG. Respiratory: ??Lungs are clear to auscultation b/l, No RRR. ?? Gastrointestinal: ??Soft, Nontender, Non distended, ??Normal bowel sounds.?? Genitourinary: No costovertebral angle tenderness. Neurological: ??Cranial nerves intact. Motor and sensory intact. Back: ??Nontender. Musculoskeletal: ??Normal ROM.?? No edema Hematology: No lymphadenopathy Skin: ??Warm, dry. Psychiatric: ??Cooperative.?? Assessment/Plan Diagnoses Abdominal pain ??(R10.9) Diarrhea ??(R19.7) Nausea and vomiting ??(R11.2) Urine retention ??(R33.9) ?? Assessment:??73-year-old female with PMH including early Alzheimer's dementia, HTN, HLD, hypothyroidism, irritable bowel syndrome/chronic diarrhea, restless leg syndrome, fibromyalgia, chronic low back pain, tobacco dependence. Patient presented to ER with abdominal pain, nausea, vomiting and diarrhea. ?? Abdominal pain (R10.9):??. Nausea and vomiting (R11.2):??. Diarrhea (R19.7):??. Short history,??likely gastroenteritis. ??She does have a history of chronic diarrhea. On observation??for symptom relief. Antiemetic. We will keep n.p.o. for now,??please??try to advance diet in the morning. Gentle IV fluid hydration. Pain control. ?? Urine retention (R33.9):??. It seems patient initially had some retention, however subsequently was able to void, had a postvoid residual 150. Monitor??for any urinary retention. ?? Chronic conditions/Home medication: Alzheimer's: Continue donepezil. HTN: Continue lisinopril,??Coreg. Hypothyroid: Continue??levothyroxine. Continue gabapentin. Not sure if patient is on??full aspirin, please check with pharmacy. Patient does have history of??early dementia,??and is not completely reliable as a historian, please??check the medication doses??with her pharmacy. ?? VTE Prophylaxis:??heparin s/c ?VTE Prophylaxis Assessment:??VTE Prophylaxis Ordered ?? Code Status:??full code ?Order Code Status:??Code Status Ordered ?? Discharge Planning:? Histories Allergies Allergies ?(Active and Proposed Allergies Only) colchicine? (Severity: Unknown severity, Onset: Unknown) sulfa drugs? (Severity: Unknown severity, Onset: Unknown) ?Reactions: unresponsive. CeleBREX? (Severity: Unknown severity, Onset: Unknown) ?Reactions: unresponsive Formaldehyde? (Severity: Persistent Mild, Onset: Unknown) ?Reactions: Rash Flagyl? (Severity: Unknown severity, Onset: Unknown) ? Past Medical History/Problem List Active Problems??(7) Alzheimer's dementia without behavioral disturbance HLD (hyperlipidemia) HTN (hypertension) Hypothyroidism IBS (irritable bowel syndrome) Raynauds syndrome Spinal stenosis ? Past Surgical History left hip and knee replacement; Right inguinal hernia repair Cervical discectomy ? Social History Alcohol Details:??Use: Current. ??Frequency: Daily. ??Other: 1 glass of votExiles. Substance Abuse Details:??Use: Never. Tobacco Details:??Other: Patient reports smoking a pack a day about 40 years and quit last year in November.. ? Family History No positive family history reported. ? Medications Home Medications Acetaminophen (acetaminophen 325 mg oral tablet)?650?Milligram?By Mouth?Every 6 hours?may take OTC not to exceed 3000 mg/day Aspirin (Aspirin Tablet)?325?Milligram?By Mouth?2 times a day bifidobacterium-lactobacillus (Probiotic Formula oral capsule)?2?capsule?By Mouth?Daily Carvedilol (Coreg 12.5 mg oral tablet)?12.5?Milligram?1?tablet?By Mouth?2 times aday Chlorzoxazone (Parafon Forte DSC 500 mg oral tablet)?1?tab(s)?500?Milligram?By Mouth?3 times a day?as needed?Pain , Severe Docusate (Colace Capsule)?100?Milligram?1?capsule?By Mouth?2 times a day Donepezil (donepezil 10 mg oral tablet)?10?Milligram?1?tablet?By Mouth?Daily at bedtime Gabapentin (gabapentin 100 mg oral capsule)?400?Milligram?4?capsule?By Mouth?Daily at bedtime Levothyroxine (Levoxyl 0.1 mg oral tablet)?1?tab(s)?100?Microgram?By Mouth?Daily Lisinopril (lisinopril 40 mg oral tablet)?1?tab(s)?40?Milligram?By Mouth?Daily Omeprazole?40?Milligram?By Mouth?Daily Polyethylene Glycol 3350 (MiraLax Powder)?1?pack/packet?17?gram?By Mouth?Daily?as needed?Constipation Senna (senna 187 mg oral tablet)?1?tab(s)?8.6?Milligram?By Mouth?Daily at bedtime?as needed?as needed for constipation ? Inpatient Medications Medications (17) Active SCHEDULED: (8) Carvedilol 12.5 mg Tablet (Coreg 12.5 mg oral tablet) ??12.5 mg, By Mouth, 2 times a day Donepezil 10 mg Tablet (donepezil 10 mg oral tablet) ??10 mg, By Mouth, Daily at bedtime Gabapentin 400 mg Capsule (gabapentin 400 mg oral capsule) ??400 mg, By Mouth, Daily at bedtime Heparin 5000 units/mL Inj (1 mL) (Heparin Inj) ??5,000 units 1 mL, Subcutaneous Injection, 3 times a day Levothyroxine 100 mcg Tablet (levothyroxine 0.1 mg oral tablet) ??100 mcg, By Mouth, Daily Lisinopril 20 mg Tablet (lisinopril 20 mg oral tablet) ??40 mg, By Mouth, Daily Magnesium Oxide 400 mg Tablet (magnesium oxide 400 mg oral tablet) ??1,200 mg, By Mouth, 2 times a day NaCl 0.9% Flush 3ml (NaCL 0.9% Flush) ??3 mL, IV Push, Every 8 hours CONTINUOUS: (1) Lactated Ringers (1000 mL) Cont IV 1,000 mL (LR 1,000 mL) ??1,000 mL, IV Infusion, 75 mL/hr PRN: (8) Acetaminophen 325 mg Tablet (Acetaminophen Tablet) ??650 mg, By Mouth, Every 4 hours Dextromethorphan-Guaifenesin 20 mg-200 mg/10 mL Liqu UD (Robitussin DM Liquid) ??10 mL, By Mouth, Every 4 hours Melatonin 3 mg Tablet (Melatonin Tablet) ??3 mg, By Mouth, Daily at bedtime NaCl 0.9% Flush 3ml (NaCL 0.9% Flush) ??3 mL, IV Push, Every 8 hours Polyethylene Glycol 17 Gm Powder (MiraLax Powder) ??17 Gm 1 pack/packet, By Mouth, Daily PROCHLORperazine 5mg/ml Inj (Compazine Inj) ??5 mg 1 mL, IV Push, Once Senna 8.6 mg / Docusate 50 mg tablet (Docusate/Senna Tablet) ??1 tablet, By Mouth, 2 times a day Simethicone 80 mg Chewable Tablet (Simethicone Tablet) ??80 mg, Chew, 3 times a day ? Results Recent Labs BLOOD COUNT & DIFF WBC 10.8 k/mm3 ()?? 06/09/2023 12:20 RBC 4.67 m/mm3 ()?? 06/09/2023 12:20 Hgb 14.4 Gm/dL ()?? 06/09/2023 12:20 Hct 43.4 % ()?? 06/09/2023 12:20 MCV 92.9 femtoliters ()?? 06/09/2023 12:20 MCH 30.8 pg ()?? 06/09/2023 12:20 MCHC 33.2 g/dL ()?? 06/09/2023 12:20 Platelet Count 242 k/mm3 ()?? 06/09/2023 12:20 RDW-SD 43.2 femtoliters ()?? 06/09/2023 12:20 MPV 11.0 femtoliters ()?? 06/09/2023 12:20 Nucleated RBC (Automated) 0.0 #/100 WBC'S ()?? 06/09/2023 12:20 Abs. NRBC 0.0 k/mm3 ()?? 06/09/2023 12:20 Abs. Neut 9.2 k/mm3 (High)?? 06/09/2023 12:20 Abs. Lymph 0.9 k/mm3 ()?? 06/09/2023 12:20 Abs. Davie 0.6 k/mm3 ()?? 06/09/2023 12:20 Abs. Eo 0.1 k/mm3 ()?? 06/09/2023 12:20 Abs. Baso 0.0 k/mm3 ()?? 06/09/2023 12:20 Neut % 84.7 % (High)?? 06/09/2023 12:20 Lymph % 8.2 % (Low)?? 06/09/2023 12:20 Davie % 5.6 % ()?? 06/09/2023 12:20 Eos % 0.8 % ()?? 06/09/2023 12:20 Baso % 0.3 % ()?? 06/09/2023 12:20 Imm Gran 0.4 % ()?? 06/09/2023 12:20 Abs. Imm Gran 0.0 k/mm3 ()?? 06/09/2023 12:20 ?? CHEM GENERAL Sodium 138 mmol/L ()?? 06/09/2023 12:15 Potassium 4.0 mmol/L ()?? 06/09/2023 12:15 Chloride 99 mmol/L ()?? 06/09/2023 12:15 Bicarbonate Level 25 mmol/L ()?? 06/09/2023 12:15 Anion Gap 14 ()?? 06/09/2023 12:15 Glucose Level 178 mg/dL (High)?? 06/09/2023 12:15 BUN 15 mg/dL ()?? 06/09/2023 12:15 Creatinine-Blood 0.6 mg/dL ()?? 06/09/2023 12:15 Estimated GFR Creatinine 93 ML/MIN/1.73 M2 ()?? 06/09/2023 12:15 Alkaline Phosphatase 85 units/L ()?? 06/09/2023 12:15 Lipase 11 units/L (Low)?? 06/09/2023 12:15 ALT (SGPT) 10 units/L ()?? 06/09/2023 12:15 Bilirubin, Total 1.0 mg/dL ()?? 06/09/2023 12:15 ?? COAG INR 1.1 ()?? 06/09/2023 12:20 Protime (PT) 11.5 seconds (High)?? 06/09/2023 12:20 ?? UA/URINALYSIS Appear/Color, Urine COLORLESS ()?? 06/09/2023 14:30 Specific Willard, Urine 1.017 ()?? 06/09/2023 14:30 pH, Urine 8.0 ()?? 06/09/2023 14:30 Albumin, Urine 1+ (Abnormal)?? 06/09/2023 14:30 Glucose, Urine 1+ (Abnormal)?? 06/09/2023 14:30 Ketones, Urine TRACE (Abnormal)?? 06/09/2023 14:30 Bilirubin, Urine NEGATIVE ()?? 06/09/2023 14:30 Hemoglobin, Urine NEGATIVE ()?? 06/09/2023 14:30 Nitrite, Urine NEGATIVE ()?? 06/09/2023 14:30 Leukocyte, Urine NEGATIVE ()?? 06/09/2023 14:30 Urobilinogen NORMAL mg/dL ()?? 06/09/2023 14:30 WBC's, Urine <1 /HPF ()?? 06/09/2023 14:30 RBC's, Urine 1 /HPF ()?? 06/09/2023 14:30 Hold Urine Culture Testing available 48 hours from time of collection. ()?? 06/09/2023 14:30 ?? VIROLOGY COVID-19 by RT-PCR NEGATIVE ()?? 06/09/2023 17:49 ? Microbiology ?? COVID-19 (Novel Coronavirus), Rapid PCR?? Completed?? Source: Nasal Body Site: Nose Collected Dt/Tm: 06/09/2023 17:37 Last Updated Dt/Tm: 06/09/2023 19:05 ? EKG study * Event Display: ECG 12-Lead Authored Date: Please click on pdf link to open report * Event Display: ECG 12-Lead Authored Date: Ventricular Rate: 69 BPM Atrial Rate: 69 BPM P-R Interval: 178 ms QRS Duration: 92 ms Q-T Interval: 460 ms QTC Calculation(Bazett): 492 ms P Gen[place]: 42 degrees R [place]: -27 degrees T [place]: 1 degrees Normal sinus rhythm Moderate voltage criteria for LVH, may be normal variant ( R in aVL , Altheimer product ) ST and T wave abnormality, consider anterior ischemia Abnormal ECG When compared with ECG of 03-DEC-2021 07:37, ST now depressed in Inferior leads Non-specific change in ST segment in Anterior leads Confirmed by MARILYN MILIAN ([id number]) on 06/09/2023 5:05:04 PM Everson: MARILYN MILIAN [facility] Progress note * Nettie SALINAS, Flora: PERFORM, MODIFY Event Display: Progress Note Hospital Authored Date: Patient: ??AMARIS BARCLAY ? Age:??73 Years?Sex:??Female?:??1950?? Subjective Pt's diarrhea has almost resolved, her PO intake is still suboptimal, BP running high today dc IVF,added amlodipine for better control. awaiting PT consult, has been 2 assist per rn . Review of Systems -ve except weakness and fatigue Objective Vital Signs?? Temperature: 97.3 DegF (06/11/23 07:00:00) Temperature Route: Oral (06/11/23 07:00:00) Pulse Rate: 83 bpm (06/11/23 09:38:00) Respiratory Rate: 16 br/min (06/11/23 09:38:00) Systolic Blood Pressure:??165 mm Hg??High (06/11/23 09:38:00) Diastolic Blood Pressure:??97 mm Hg??High (06/11/23 09:38:00) Blood pressure sites: Arm, left (06/11/23 09:38:00) Mean Arterial Pressure: 120 mm Hg (06/11/23 09:38:00) Pulse Pressure: 68 mm Hg (06/11/23 09:38:00) Oxygen Saturation: 98 % (06/11/23 07:00:00) Liters per Minute: 0 L/min (06/11/23 07:00:00) Mode of Delivery (Oxygen): Room air (06/11/23 07:00:00) Early Warning Score: 2 (06/11/23 09:39:25) ? Physical Exam A&ox 3 abdomen soft non tender lungs CTAB, on RA heart RRR no JOCELYNE _ Home Medications Acetaminophen (acetaminophen 325 mg oral tablet)?650?Milligram?By Mouth?Every 6 hours?may take OTC not to exceed 3000 mg/day Aspirin (Aspirin Tablet)?325?Milligram?By Mouth?2 times a day bifidobacterium-lactobacillus (Probiotic Formula oral capsule)?2?capsule?By Mouth?Daily Carvedilol (Coreg 12.5 mg oral tablet)?12.5?Milligram?1?tablet?By Mouth?2 times aday Chlorzoxazone (Parafon Forte DSC 500 mg oral tablet)?1?tab(s)?500?Milligram?By Mouth?3 times a day?as needed?Pain , Severe Donepezil (donepezil 10 mg oral tablet)?10?Milligram?1?tablet?By Mouth?Daily at bedtime Gabapentin (gabapentin 100 mg oral capsule)?400?Milligram?4?capsule?By Mouth?Daily at bedtime Levothyroxine (Levoxyl 0.1 mg oral tablet)?1?tab(s)?100?Microgram?By Mouth?Daily Lisinopril (lisinopril 40 mg oral tablet)?1?tab(s)?40?Milligram?By Mouth?Daily Omeprazole?40?Milligram?By Mouth?Daily Polyethylene Glycol 3350 (MiraLax Powder)?1?pack/packet?17?gram?By Mouth?Daily?as needed?Constipation ? Inpatient Medications Medications (17) Active SCHEDULED: (9) Amlodipine 5 mg Tablet (amLODIPine 5 mg oral tablet) ??5 mg, By Mouth, Daily Carvedilol 12.5 mg Tablet (Coreg 12.5 mg oral tablet) ??12.5 mg, By Mouth, 2 times a day Donepezil 10 mg Tablet (donepezil 10 mg oral tablet) ??10 mg, By Mouth, Daily at bedtime Gabapentin 400 mg Capsule (gabapentin 400 mg oral capsule) ??400 mg, By Mouth, Daily at bedtime Heparin 5000 units/mL Inj (1 mL) (Heparin Inj) ??5,000 units 1 mL, Subcutaneous Injection, 3 times a day Levothyroxine 100 mcg Tablet (levothyroxine 0.1 mg oral tablet) ??100 mcg, By Mouth, Daily Lisinopril 20 mg Tablet (lisinopril 20 mg oral tablet) ??40 mg, By Mouth, Daily Magnesium Oxide 400 mg Tablet (magnesium oxide 400 mg oral tablet) ??1,200 mg, By Mouth, 2 times a day NaCl 0.9% Flush 3ml (NaCL 0.9% Flush) ??3 mL, IV Push, Every 8 hours CONTINUOUS: (0) PRN: (8) Acetaminophen 325 mg Tablet (Acetaminophen Tablet) ??650 mg, By Mouth, Every 4 hours Dextromethorphan-Guaifenesin 20 mg-200 mg/10 mL Liqu UD (Robitussin DM Liquid) ??10 mL, By Mouth, Every 4 hours Melatonin 3 mg Tablet (Melatonin Tablet) ??3 mg, By Mouth, Daily at bedtime NaCl 0.9% Flush 3ml (NaCL 0.9% Flush) ??3 mL, IV Push, Every 8 hours Ondansetron 2mg/mL Inj (2mL Vial) (Zofran Inj) ??4 mg, IV Push, Every 6 hours Polyethylene Glycol 17 Gm Powder (MiraLax Powder) ??17 Gm 1 pack/packet, By Mouth, Daily Senna 8.6 mg / Docusate 50 mg tablet (Docusate/Senna Tablet) ??1 tablet, By Mouth, 2 times a day Simethicone 80 mg Chewable Tablet (Simethicone Tablet) ??80 mg, Chew, 3 times a day ? Results Recent Labs BLOOD COUNT & DIFF WBC 5.4 k/mm3 ()?? 06/11/2023 01:57 RBC 4.67 m/mm3 ()?? 06/11/2023 01:57 Hgb 14.3 Gm/dL ()?? 06/11/2023 01:57 Hct 42.5 % ()?? 06/11/2023 01:57 MCV 91.0 femtoliters ()?? 06/11/2023 01:57 MCH 30.6 pg ()?? 06/11/2023 01:57 MCHC 33.6 g/dL ()?? 06/11/2023 01:57 Platelet Count 237 k/mm3 ()?? 06/11/2023 01:57 RDW-SD 42.3 femtoliters ()?? 06/11/2023 01:57 MPV 11.0 femtoliters ()?? 06/11/2023 01:57 Nucleated RBC (Automated) 0.0 #/100 WBC'S ()?? 06/11/2023 01:57 Abs. NRBC 0.0 k/mm3 ()?? 06/11/2023 01:57 Abs. Neut 4.4 k/mm3 ()?? 06/10/2023 05:34 Abs. Lymph 1.2 k/mm3 ()?? 06/10/2023 05:34 Abs. Davie 0.7 k/mm3 ()?? 06/10/2023 05:34 Abs. Eo 0.0 k/mm3 ()?? 06/10/2023 05:34 Abs. Baso 0.0 k/mm3 ()?? 06/10/2023 05:34 Neut % 69.0 % ()?? 06/10/2023 05:34 Lymph % 18.3 % ()?? 06/10/2023 05:34 Davie % 11.4 % (High)?? 06/10/2023 05:34 Eos % 0.5 % ()?? 06/10/2023 05:34 Baso % 0.5 % ()?? 06/10/2023 05:34 Imm Gran 0.3 % ()?? 06/10/2023 05:34 Abs. Imm Gran 0.0 k/mm3 ()?? 06/10/2023 05:34 ?? CHEM GENERAL Sodium 138 mmol/L ()?? 06/11/2023 01:57 Potassium 3.7 mmol/L ()?? 06/11/2023 01:57 Chloride 97 mmol/L (Low)?? 06/11/2023 01:57 Bicarbonate Level 26 mmol/L ()?? 06/11/2023 01:57 Anion Gap 15 ()?? 06/11/2023 01:57 Glucose Level 93 mg/dL ()?? 06/10/2023 05:34 BUN 13 mg/dL ()?? 06/11/2023 01:57 Creatinine-Blood 0.6 mg/dL ()?? 06/11/2023 01:57 Estimated GFR Creatinine 93 ML/MIN/1.73 M2 ()?? 06/11/2023 01:57 Magnesium 2.5 mg/dL (High)?? 06/10/2023 05:34 ?? URINE OTHER Est Creatinine Clearance 70.47 mL/min ()?? 06/11/2023 03:41 ? Imaging(s) ?CT Abd/Pelvis W/ IV Contrast Only ?? 06/09/2023 13:49??by Pratik SALINAS , Aggie Negron ?Impression: ?? Diverticulosis without evidence of diverticulitis. ?? Marked distention of the urinary bladder which could be secondary to retention. ? Assessment/Plan Assessment:??73-year-old female with PMH including early Alzheimer's dementia, HTN, HLD, hypothyroidism, irritable bowel syndrome/chronic diarrhea, restless leg syndrome, fibromyalgia, chronic low back pain, tobacco dependence. Patient presented to ER with abdominal pain, nausea, vomiting and diarrhea. ? Abdominal pain (R10.9): resolved Nausea and vomiting (R11.2): resolved Diarrhea (R19.7):??resolved ??Short history, likely gastroenteritis. She does have a history of chronic diarrhea. IV hydration dc today GI consulted , outpt fu for IBS??D sx improved regular diet?Urine retention (R33.9):??resolved ??It seems patient initially had some retention, however subsequently was able to void, had a postvoid residual 150. ? Chronic conditions/Home medication: ??Alzheimer's: Continue donepezil. ??HTN: Continue lisinopril, Coreg. added amlodipine for better control. ??Hypothyroid: Continue levothyroxine. ??Continue gabapentin. ?? awaiting PT consult, ready for dc otherwise. ?? updated son over phone 06/11 ?? * Lavern SALINAS, [facility]: PERFORM Event Display: Progress Note Hospital Authored Date: Patient: ??AMARIS BARCLAY ? Age:??73 Years?Sex:??Female?:??1950?? Assessment/Plan ??pt seen and examined at bedside admitted early this AM with abdominal pain, nausea, vomiting, diarrhea , weight loss also was reporting dry heaving and still vomiting shavonne after [facility] ying requested given h/o IBS and chronic diarrhea, weight loss IV hydration continued with anitemetics agree with rest of the management as outlined in H&P from same day Consult note * Juan SALINAS, [facility]: MODIFY, MODIFY, MODIFY, PERFORM Event Display: Consultation Note Authored Date: [id number] Patient: ??AMARIS BARCLAY ? Age:??73 Years?Sex:??Female?:??1950?? Referrring Provider Lavern Chief Complaint n/v/d Reason for Consultation diarrhea History of Present Illness ?? 73-year-old female with a reported past medical history of Alzheimer's disease, dementia, hypertension, hyperlipidemia, hypothyroidism, IBS with diarrhea predominance, RLS, fibromyalgia, chronic back pain who presented to the hospital with nausea, vomiting, diarrhea. ??GI was consulted. ?? Patient has a history of IBS???diarrhea predominant and follows with Dr. Burdick. ??She is not taking any particular therapy for this. ??On average she has 2???4 bowel movements and that can vary a lot. ??She denies abdominal pain at baseline. ??Patient presented to the ED on Friday after she developed acute onset of chills and diarrhea which she describes as liquid nonbloody bowel movements. ??She had 4 episodes on Friday. ??Patient tells me that since then this has resolved and she has not had any further diarrhea on Friday. ??Initially had very mild cramping however that has dissipated since. ??Patient also had associated nausea and vomiting. ??She had 2 episodes of nonbloody nonbilious emesis at home and a few episodes of dry heaving. ??Patient denies having abdominal pain though does endorse initial cramping which has resolved. ??Patient denies any melena, medic easy, hematemesis, fevers. ??Patient denies any sick contacts or recent travel. ??She states that she has lost weighthowever on review her weight is close to the baseline in 2019. ??Patient drinks 1 glass of vodka a day. ??She tells me that she had a colonoscopy a few years ago which was normal however we do not have the records to confirm. ?? In ED patient was found to be initially hypothermic which resolved. ??She was found to have hypertensive urgency which was improved with medications. ??Patient has since then been afebrile and doing better. ??Her blood work did not show any elevated WBC count or anemia. ??She underwent a CT abdomenwhich showed diverticulosis without evidence of diverticulitis and no other acute abnormality. ??Patient was admitted under medicine service and GI was consulted with question of diarrhea. ?? Review of Systems Full review of systems completed and was negative except as mentioned above in HPI Physical Exam Vitals & Measurements T:??98.1?F?? TMIN:??97.3?F?? TMAX:??98.1?F?? HR:??64??(Peripheral)?? RR:??16?? BP:??172/88?? SpO2:??99%?? WT:??70.7??kg?? Constitutional: Alert, in no distress. Mental Status: Oriented to person, place and time. Respiratory: Clear to auscultation. No wheezing, rales or rhonchi. Cardiovascular: S1 S2 regular Gastrointestinal: Abdomen soft, non-tender, non-distended. Normal bowel sounds. No pulsatile mass. Genitourinary: No costovertebral angle tenderness. Neurologic: Cranial nerves II-XII grossly intact. No focal neurological deficits. Moves all extremities spontaneously. Skin: No rashes or lesions. No petechiae or purpura.??No jaundice Musculoskeletal: No cyanosis or clubbing. No gross deformities. Normal range of motion. Psychiatric: Appropriate mood and affect Assessment/Plan ?? Acute Viral Gastroenteritis IBS - D ?? 73-year-old female with a reported past medical history of Alzheimer's disease, dementia, hypertension, hyperlipidemia, hypothyroidism, IBS with diarrhea predominance, RLS, fibromyalgia, chronic backpain who presented to the hospital with acute onset nonbloody watery diarrhea, nonbloody nonbiliousemesis X2, chills and abdominal cramping. ??Since her admission patient has had significant improvement in her symptoms and her diarrhea has resolved and she does not have any abdominal pain and has not thrown up since. ??Patient has a history of IBS and follows up with Dr. Burdick at his GI clinic but is not on any specific therapy at this time. ? Patient likely had acute viral gastroenteritis which is already resolving. ??No need for further work-up at this time. ??Patient needs symptomatic management. ??On discussion patient and requested to get established at [facility] and I will send a message to my team to schedule. ?? Recommendations: Symptomatic management for acute viral gastroenteritis??per primary team?? We will schedule GI clinic follow-up for establishing care for IBS???diarrhea predominant If patient develops diarrhea again can consider stool PCR Advance diet as tolerated ? Thank you for referring this patient to the Division of Gastroenterology, [facility].?Please feel free to reach out with any questions or concerns. ? The patient's case and management was discussed with Dr. Adam Martinez MD Gastroenterology Fellow PGY4?? Division of Gastroenterology, [facility] - [facility] [email or web address] (The above document was created using [employer] voice recognition software. As such, hand cementer errors may occur. Please contact the provider for additional questions and if clarification is needed.)?? Problem List/Past Medical History Ongoing Alzheimer's dementia without behavioral disturbance HLD (hyperlipidemia) HTN (hypertension) Hypothyroidism IBS (irritable bowel syndrome) Raynauds syndrome Spinal stenosis Procedure/Surgical History ???Cervical discectomy???left hip and knee replacement; Right inguinal hernia repair Medications Inpatient Acetaminophen Tablet, 650 mg, By Mouth, Every 4 hours, PRN Coreg 12.5 mg oral tablet, 12.5 mg, By Mouth, 2 times a day Docusate/Senna Tablet, 1 tablet, By Mouth, 2 times a day, PRN donepezil 10 mg oral tablet, 10 mg, By Mouth, Daily at bedtime gabapentin 400 mg oral capsule, 400 mg, By Mouth, Daily at bedtime Heparin Inj, 5000 units= 1 mL, Subcutaneous Injection, 3 times a day levothyroxine 0.1 mg oral tablet, 100 mcg, By Mouth, Daily lisinopril 20 mg oral tablet, 40 mg, By Mouth, Daily LR 1,000 mL, 1000 mL, IV Infusion magnesium oxide 400 mg oral tablet, 1200 mg, By Mouth, 2 times a day Melatonin Tablet, 3 mg, By Mouth, Daily at bedtime, PRN MiraLax Powder, 17 Gm= 1 pack/packet, By Mouth, Daily, PRN NaCL 0.9% Flush, 3 mL, IV Push, Every 8 hours NaCL 0.9% Flush, 3 mL, IV Push, Every 8 hours, PRN Robitussin DM Liquid, 10 mL, By Mouth, Every 4 hours, PRN Simethicone Tablet, 80 mg, Chew, 3 times a day, PRN Zofran Inj, 4 mg, IV Push, Every 6 hours, PRN Home acetaminophen 325 mg oral tablet, 650 mg, By Mouth, Every 6 hours Aspirin Tablet, 325 mg, By Mouth, 2 times a day Colace Capsule, 100 mg= 1 capsule, By Mouth, 2 times a day Coreg 12.5 mg oral tablet, 12.5 mg= 1 tablet, By Mouth, 2 times a day donepezil 10 mg oral tablet, 10 mg= 1 tablet, By Mouth, Daily at bedtime, 2 refills gabapentin 100 mg oral capsule, 400 mg= 4 capsule, By Mouth, Daily at bedtime Levoxyl 0.1 mg oral tablet, 100 mcg= 1 tablet, By Mouth, Daily lisinopril 40 mg oral tablet, 40 mg= 1 tablet, By Mouth, Daily MiraLax Powder, 17 Gm= 1 pack/packet, By Mouth, Daily, PRN Omeprazole, 40 mg, By Mouth, Daily Parafon Forte DSC 500 mg oral tablet, 500 mg= 1 tablet, By Mouth, 3 times a day, PRN Probiotic Formula oral capsule, 2 capsule, By Mouth, Daily senna 187 mg oral tablet, 8.6 mg= 1 tablet, By Mouth, Daily at bedtime, PRN Allergies Formaldehyde??(Rash) CeleBREX??( unresponsive ) Flagyl colchicine sulfa drugs??( unresponsive. ) Social History Alcohol Use: Current. Frequency: Daily. Other: 1 glass of votka. Substance Abuse Use: Never. Tobacco Other: Patient reports smoking a pack a day about 40 years and quit last year in November.. Family History Clotting and bleeding disorders: Negative: Mother, Father, Sister, Brother, Mat. Grandfather, Mat. Grandmother, Other, Pat. Grandfather and Pat. Grandmother. * Adam SALINAS, Lea: PERFORM Event Display: Consultation Note Authored Date: ?I saw and evaluated the patient. Discussed with the fellow and agree with the findings and plan as documented in the fellow's note.?suspect viral/infectious gastroenteritis, V/D resolving, wishes to transfer care non urgently to [facility] Note * Riddhi Lerma LPN: PERFORM Event Display: Discharge/Transfer Note Hospital Authored Date: Nursing Discharge Note Entered On: 06/12/2023 11:13 EDT Performed On: 06/12/2023 11:11 EDT by Riddhi Lerma LPN Nursing Discharge Note 2 Discharge Time : 06/12/2023 11:20 EDT Riddhi Lerma LPN - 06/12/2023 11:21 EDT Discharge Level of Care at Discharge : Home/Residential/Foster Care Dust Sampler Utilized : No Patient Left Unit Via : Wheelchair Patient Accompanied Off Unit with : Other: Transport aid to [facility] W/ DC Instructions Provided & Signed by Pt : Yes Patient Understands D/C Instructions : Yes Patient Instructions Discharge Signed : Yes Did Pt have Specialty Bed or Wound Vac : No Riddhi Lerma LPN - 06/12/2023 11:11 EDT * Chas Wells MD: PERFORM Event Display: Discharge/Transfer Note Hospital Authored Date: [id number] Patient: ??AMARIS BARCLAY ? Age:??73 Years?Sex:??Female?:??1950?? Patient Information Discharge Location: [facility] Primary Care Physician: Devaughn Barker MD Admit Date/Time: 06/09/23 10:31 Discharge Disposition Discharge Disposition: ?? Discharge Diagnosis Abdominal pain (R10.9) Diarrhea (R19.7) Nausea and vomiting (R11.2) Urine retention (R33.9) Viral gastroenteritis (A08.4) HLD (hyperlipidemia) HTN (hypertension) IBS (irritable bowel syndrome) ?? _ Discharge Medications Acetaminophen (acetaminophen 325 mg oral tablet)?650?Milligram?By Mouth?Every 6 hours?may take OTC not to exceed 3000 mg/day Amlodipine (amLODIPine 5 mg oral tablet)?5?Milligram?By Mouth?Daily?for 30?Days Aspirin (Aspirin Tablet)?325?Milligram?By Mouth?2 times a day bifidobacterium-lactobacillus (Probiotic Formula oral capsule)?2?capsule?By Mouth?Daily Carvedilol (Coreg 12.5 mg oral tablet)?12.5?Milligram?1?tablet?By Mouth?2 times aday Chlorzoxazone (Parafon Forte DSC 500 mg oral tablet)?1?tab(s)?500?Milligram?By Mouth?3 times a day?as needed?Pain , Severe Donepezil (donepezil 10 mg oral tablet)?10?Milligram?1?tablet?By Mouth?Daily at bedtime Gabapentin (gabapentin 100 mg oral capsule)?400?Milligram?4?capsule?By Mouth?Daily at bedtime Levothyroxine (Levoxyl 0.1 mg oral tablet)?1?tab(s)?100?Microgram?By Mouth?Daily Lisinopril (lisinopril 40 mg oral tablet)?1?tab(s)?40?Milligram?By Mouth?Daily Omeprazole?40?Milligram?By Mouth?Daily Polyethylene Glycol 3350 (MiraLax Powder)?1?pack/packet?17?gram?By Mouth?Daily?as needed?Constipation ? Hospital Course ??73-year-old female with PMH including early Alzheimer's dementia, HTN, HLD, hypothyroidism, irritable bowel syndrome/chronic diarrhea, restless leg syndrome, fibromyalgia, chronic low back pain, tobacco dependence. Patient presented to ER with abdominal pain, nausea, vomiting and diarrhea. ?? She was treated for: ? Abdominal pain (R10.9): resolved Nausea and vomiting (R11.2): resolved Acute on chronic diarrhea: Improved ?? likely acute??gastroenteritis??could be viral. She does have a history of chronic diarrhea. ??IV hydration??given?? Stool for GI pathogen negative GI consulted , outpt fu for IBS??D ??patient is feeling much better. ??No more abdominal pain or vomiting.?? She does have chronic diarrhea. ??Diarrhea is improving now. She is??tolerating diet. Patient wants to go home. ?Urine retention (R33.9):??resolved ? Chronic conditions/Home medication: ??Alzheimer's: Continue donepezil. ??HTN: Continue lisinopril, Coreg. added amlodipine for better control. ??Hypothyroid: Continue levothyroxine. ??Continue gabapentin.? Physical therapy consulted. ??Recommend home??outpatient services. ??Prescription given to the patient. ? Objective Assessment and Plan Discharge Planning:? Measurements?? Height: 163 cm (06/11/23) Weight: 66.4 kg (06/10/23) Dry Weight: 66.4 kg (06/10/23) Body Mass Index: 24.99 kg/m2 (06/10/23) ? Vital Signs?? Temperature: 97.7 DegF (06/12/23 07:00:00) Temperature Route: Oral (06/12/23 07:00:00) Pulse Rate: 64 bpm (06/12/23 10:09:00) Respiratory Rate: 17 br/min (06/12/23 07:00:00) Systolic Blood Pressure:??146 mm Hg??High (06/12/23 10:09:00) Systolic Blood Pressure:??146 mm Hg??High (06/12/23 10:09:00) Systolic Blood Pressure:??146 mm Hg??High (06/12/23 10:09:00) Diastolic Blood Pressure:??86 mm Hg??High (06/12/23 10:09:00) Diastolic Blood Pressure:??86 mm Hg??High (06/12/23 10:09:00) Diastolic Blood Pressure:??86 mm Hg??High (06/12/23 10:09:00) Blood pressure sites: Arm, left (06/12/23 07:00:00) Pulse Pressure: 60 mm Hg (06/12/23 07:00:00) Oxygen Saturation: 98 % (06/12/23 07:00:00) Liters per Minute: 0 L/min (06/12/23 07:00:00) Mode of Delivery (Oxygen): Room air (06/12/23 07:00:00) Early Warning Score: 2 (06/12/23 10:10:22) ? . Physical Exam Constitutional: Alert, in no distress. Mental Status: Oriented to person, place and time. Head: Normocephalic. Neck: Supple, Full range of motion. Respiratory: Clear to auscultation. No wheezing, rales or rhonchi. Cardiovascular: S1 S2 regular. No murmurs, rubs or gallops. Gastrointestinal: Abdomen soft, non-tender, non-distended. Normal bowel sounds. Neurologic: Cranial nerves II-XII grossly intact. No focal neurological deficits. Skin: No rashes or lesions. No petechiae or purpura.?? Musculoskeletal: No cyanosis or clubbing. No gross deformities. Psychiatric: Normal mood and affect Pending Results No Pending Results Patient Education Titles Irritable Bowel Syndrome?? Diet and Lifestyle Tips for Irritable Bowel Syndrome (IBS)?? Follow-Up Appointments Added Follow Up ?Time Frame ?Comments Devaughn Barker MD?1 to 2 weeks Post Discharge Care Discharge ?06/12/23 10:25:00 EDT Discharge Prescriptions ?ePrescribed, ??06/12/23 10:25:00 EDT Home Health Face to Face ^HomeHealthFTF Results Imaging(s) ?CT Abd/Pelvis W/ IV Contrast Only ?? 06/09/2023 13:49??by Aggie Christie MD ?Impression: ?? Diverticulosis without evidence of diverticulitis. ?? Marked distention of the urinary bladder which could be secondary to retention. ? 28 minutes spent on discharge * Maynor Caldwell RN: PERFORM Event Display: Patient Education/Instruction Authored Date: [id number] Inpatient Adult Discharge Instructions [address] [address] Name: AMARIS BARCLAY : 1950 Visit: 06/09/2023 10:31:00 Current Date: 06/12/2023 10:37 Account: [id number] Inpatient Adult Discharge Instructions We would like to thank you for allowing us to assist you with your healthcare needs. The following includes patient education materials and information regarding your injury/illness. Our entire staffstrives to provide an excellent experience for our patients and their families. PLEASE ENSURE YOU FOLLOW-UP PER THE INSTRUCTIONS BELOW! ?? YOUR OPINION IS IMPORTANT TO US! Please complete the survey you may receive by mail or email. Your feedback will be used to make improvements to the healthcare experiences of our patients and their families. Surveys are administered by [employer] ?? If further treatment with your primary care physician or another doctor is recommended, it is important for you to keep the appointment. Call your primary care physician or return to the Emergency Department immediately if your condition worsens, fails to improve, or new symptoms develop. If you need to find a doctor, you can call [facility] for a referral at [phone] or toll free at [phone] or log in to [email or web address].. ?? You can view and manage your care through the patient portal or by using a health care britt of your choosing. [employer] is a website that allows you to securely view your medical information including your hospital discharge summary, office visit summaries, medications and follow-up visits. You can also request appointments, renew medications, and request access to your medical information using a health care britt of your choosing, or just ask a question. You can enroll at [email or web address] or register during your next office visit. You have been discharged from [facility], Patient Care Unit: D6A. If you have any questions regarding these instructions after you leave, please call us and we will be happy to assist you. [facility] Your Care Team Attending Physician Chas Wells MD Consulting Providers Adam SALINAS, Lea Discharging Providers Chas Wells MD Reason for Admission n/v/d Your Diagnosis Abdominal pain Nausea and vomiting Diarrhea Urine retention Viral gastroenteritis Tests Performed Below is a partial list of the tests performed during your hospitalization. You may have had other tests and procedures not included in this list. Please discuss all test results with your provider. Alk Phos ALT BUN CBC CBC w/ Differential COVID-19 (Novel Coronavirus), Rapid PCR Creatinine Electrolytes GI Profile, Stool, PCR Glucose Level INR Lipase Magnesium Level Total Bilirubin Urinalysis w/hold for Urine Culture CT Abd/Pelvis W/ IV Contrast Only Primary Care Provider Lucero SALINAS, Devaughn Negron Advance Directive Health Care Proxy on File Yes - Health Care Proxy Discharge Vitals Temperature: 97.7 DegF Height: 163 cm Pulse Rate: 64 bpm Weight: 66.4 kg Respiratory Rate: 17 br/min Body Mass Index: 24.99 kg/m2 Systolic Blood Pressure:??146 mm Hg??High Body surface area: 1.73 Systolic Blood Pressure:??146 mm Hg??High ?? Systolic Blood Pressure:??146 mm Hg??High ?? Diastolic Blood Pressure:??86 mm Hg??High ?? Diastolic Blood Pressure:??86 mm Hg??High ?? Diastolic Blood Pressure:??86 mm Hg??High ?? Oxygen Saturation: 98 % ?? Studies Pending All tests and labs ordered during this hospital stay have been completed unless listed below. Please discuss all pending results with your provider listed above in these instructions. ?? No incomplete studies found What to do next Instructions From Your Doctor Discharge Orders You Need to Schedule the Following Appointments Follow Up with??Devaughn Barker MD When:??Within 1 to 2 weeks Where: [address] [place] [id number]- [facility] (1) Discharge Medications AMARIS BARCLAY :1950 Visit Date:06/09/2023 Medications: Please continue your medications until treatment is completed or stopped by your provider. Medications not listed below should be discontinued. Discuss any questions related to medications with your provider. What How Much When Instructions Next Dose New Amlodipine (amLODIPine 5 mg oral tablet) 5 Milligram Oral Daily Duration: 30 Days Pickup at [facility] 06/13/23 9AM Unchanged Acetaminophen (acetaminophen 325 mg oral tablet) 650 Milligram Oral Every 6 hours may take OTC not to exceed 3000 mg/ day ?? as needed Unchanged Aspirin (Aspirin Tablet) 325 Milligram Oral Twice a day 06/12/23 9PM Unchanged bifidobacterium-lactobacillus (Probiotic Formula oral capsule) 2 capsule Oral Daily 06/13/23 9AM Unchanged Carvedilol (Coreg 12.5 mg oral tablet) 1 tab(s) Oral Twice a day Pickup at [facility] 06/12/23 9PM Unchanged Chlorzoxazone (Parafon Forte DSC 500 mg oral tablet) 1 tab(s) Oral 3 times a day as needed for Pain , Severe as needed Unchanged Donepezil (donepezil 10 mg oral tablet) 1 tab(s) Oral Daily at Bedtime 06/12/23 9PM Unchanged Gabapentin (gabapentin 100 mg oral capsule) 4 capsule Oral Daily at Bedtime 06/12/23 9PM Unchanged Levothyroxine (Levoxyl 0.1 mg oral tablet) 1 tab(s) Oral Daily 06/13/23 9AM Unchanged Lisinopril (lisinopril 40 mg oral tablet) 1 tab(s) Oral Daily Pickup at [facility] 06/13/23 9AM Unchanged Omeprazole 40 Milligram Oral Daily 06/13/23 9AM Unchanged Polyethylene Glycol 3350 (MiraLax Powder) 17 gram Oral Daily as needed for Constipation as needed [facility]: [address] [place] [address] [phone] ?? What How Much When Comments Stop Taking Docusate (Colace Capsule) 100 Milligram Oral Twice a day STOP Stop Taking Senna (senna 187 mg oral tablet) 1 tab(s) Oral Daily at Bedtime as needed for as needed for constipation STOP Test Results Below is a partial list of the most recent Laboratory test results done prior to this discharge. You may have had other tests and procedures not included in this list. Please discuss all test resultswith your provider. Est Creatinine Clearance - 70.47 mL/min (06/11/2023) Alk Phos (06/09/2023) ???Alkaline Phosphatase - 85 units/L ALT (06/09/2023) ???ALT (SGPT) - 10 units/L BUN (06/11/2023) ???BUN - 13 mg/dL CBC (06/11/2023) ???WBC - 5.4 k/mm3???RBC - 4.67 m/mm3???Hgb - 14.3 Gm/dL???Hct - 42.5 %???MCV - 91.0 femtoliters???MCH - 30.6 pg???MCHC - 33.6 g/dL???Platelet Count - 237 k/mm3???RDW-SD - 42.3 femtoliters???MPV - 11.0 femtoliters???Nucleated RBC (Automated) - 0.0 #/100 WBC'S???Abs. NRBC - 0.0 k/mm3 CBC w/ Differential (06/10/2023) ???WBC - 6.4 k/mm3???RBC - 4.40 m/mm3???Hgb - 13.5 Gm/dL???Hct - 40.9 %???MCV - 93.0 femtoliters???MCH - 30.7 pg???MCHC - 33.0 g/dL???Platelet Count - 245 k/mm3???RDW-SD - 44.3 femtoliters???MPV - 11.0 femtoliters???Nucleated RBC (Automated) - 0.0 #/100 WBC'S???Abs. NRBC - 0.0 k/mm3???Abs. Neut - 4.4 k/mm3???Abs. Lymph - 1.2 k/mm3???Abs. Davie - 0.7 k/mm3???Abs. Eo - 0.0 k/mm3???Abs. Baso - 0.0 k/mm3???Neut % - 69.0 %???Lymph % - 18.3 %???Davie % - 11.4 %???Eos % - 0.5 %???Baso % - 0.5 %???Imm Gran - 0.3 %???Abs. Imm Gran - 0.0 k/mm3 COVID-19 (Novel Coronavirus), Rapid PCR (06/09/2023) ???COVID-19 by RT-PCR - NEGATIVE Creatinine (06/11/2023) ???Creatinine-Blood - 0.6 mg/dL???Estimated GFR Creatinine - 93 ML/MIN/1.73 M2 Electrolytes (06/11/2023) ???Sodium - 138 mmol/L???Potassium - 3.7 mmol/L???Chloride - 97 mmol/L???Bicarbonate Level - 26 mmol/L???Anion Gap - 15 GI Profile, Stool, PCR (06/11/2023) ???GI PCR, Campylobacter - NEGATIVE???GI PCR, Plesiomonas shigelloides - NEGATIVE???GI PCR, Salmonella - NEGATIVE???GI PCR, Vibrio - NEGATIVE???GI PCR, Vibrio cholerae - NEGATIVE???GI PCR, Yersinia enterocolitica - NEGATIVE???GI PCR, Enteroaggregative E coli - NEGATIVE???GI PCR, Enteropathogenic E coli - NEGATIVE???GI PCR, Enterotoxigenic E coli - NEGATIVE???GI PCR, Rlbfh-[id number]-[id number] E coli -NEGATIVE???GI PCR, Shigella/Enteroinvasive E coli - NEGATIVE???GI PCR, Cryptosporidium - NEGATIVE???GI PCR, Cyclospora cayetanensis - NEGATIVE???GI PCR, Entamoeba histolytica - NEGATIVE???GI PCR, Giardia lamblia - NEGATIVE???GI PCR, Adenovirus F 40/41 - NEGATIVE???GI PCR, Astrovirus - NEGATIVE???GIPCR, Norovirus GI/GII - NEGATIVE???GI PCR, Rotavirus A - NEGATIVE???GI PCR, Sapovirus - NEGATIVE Glucose Level (06/10/2023) ???Glucose Level - 93 mg/dL INR (06/09/2023) ???INR - 1.1???Protime (PT) - 11.5 seconds Lipase (06/09/2023) ???Lipase - 11 units/L Magnesium Level (06/10/2023) ???Magnesium - 2.5 mg/dL Total Bilirubin (06/09/2023) ???Bilirubin, Total - 1.0 mg/dL Urinalysis w/hold for Urine Culture (06/09/2023) ???Appear/Color, Urine - COLORLESS???Specific Willard, Urine - 1.017???pH, Urine - 8.0???Albumin, Urine - 1+???Glucose, Urine - 1+???Ketones, Urine - TRACE???Bilirubin, Urine - NEGATIVE???Hemoglobin,Urine - NEGATIVE???Nitrite, Urine - NEGATIVE???Leukocyte, Urine - NEGATIVE???Urobilinogen - NORMAL???WBC's, Urine - <1 /HPF? ?RBC's, Urine - 1 /HPF? ?Hold Urine Culture - Testing available 48 hours from time of collection. Allergies (NKA means No Known Allergies) Formaldehyde??(Rash) CeleBREX??( unresponsive ) Flagyl colchicine sulfa drugs??( unresponsive. ) Problems Active Problems??(7) Alzheimer's dementia without behavioral disturbance?? HLD (hyperlipidemia)?? HTN (hypertension)?? Hypothyroidism?? IBS (irritable bowel syndrome)?? Raynauds syndrome?? Spinal stenosis?? Education Materials Below is the list of Educational Leaflet Providered with your Discharge Instructions. Self-Care for Vomiting and Diarrhea?? Irritable Bowel Syndrome?? Diet and Lifestyle Tips for Irritable Bowel Syndrome (IBS)?? Valuables and Belongings I fully understand and agree that [facility] accepts no responsibility for all my personal property including clothing, toilet articles, radios, jewelry, dentures, hearing aids, rings, money, or any other property that is in my possession or is brought to me after admission. I understand certain valuables may be placed in a hospital safe for a short period of time. I understand that the hospital is not liable for loss or damage due to accident, fire, or other natural occurrence while said property is in the safe. I accept full responsibility for any personal property that I keep with me, and will not hold the hospital responsible in case of loss or disappearance. I acknowledge that i have been encouraged to send valuables and belongings home. ?? Review of Valuable and Belonging List: With patient Date for Pt to Sign Valuables/Belongings: 06/10/23 16:24:00 ?? Other Discharge Information ? Pulmonary Rehab Status?? Pulmonary Rehab Discharge Status?? Respiratory Rate: 17 br/min ? Common Emergency Awareness Tips IS IT A STROKE? Act FAST and Check for these signs: FACE Does the face look uneven? ARM Does one arm drift down? SPEECH Does their speech sound strange? TIME Call at any sign of stroke ?? Heart Attack Signs Chest discomfort: Most heart attacks involve discomfort in the center of the chest and lasts more than a few minutes, or goes away and comes back. It can feel like uncomfortable pressure, squeezing, fullness or pain. Discomfort in upper body: Symptoms can include pain or discomfort in one or both arms, back, neck, jaw or stomach. Shortness of breath: With or without discomfort. Other signs: Breaking out in a cold sweat, nausea, or lightheaded. Remember, MINUTES DO MATTER. If you experience any of these heart attack warning signs, call to get immediate medical attention! ?? Smoking can increase your chances of developing chronic health problems and can cause harmful effects to other family members in your house. If you smoke, you are strongly encouraged to quit. Please call [facility] [employer] Link at [phone] or [phone]) or log in to [email or web address] for referrals to smoking cessation programs. ?? 930 Suicide & Crisis Lifeline is available 26/05 if you or someone you know needs to find a reason to keep living. By calling 253 you'll be connected to a skilled, trained counselor at a crisis center in your area. INPATIENT DISCHARGE INSTRUCTIONS SIGNATURE PAGE AMARIS BARCLAY Location:[facility] Registration Date and Time:06/09/2023 10:31 EDT Primary Care Physician: Devaughn Barker MD, Attending Physician: Chas Wells MD, I AMARIS BARCLAY, have received the above patient education materials/instructions and have verbalized understanding. If ambulance or transport services are being used I further acknowledge being given a choice of service. ?? If you need to contact me, please call me at this number: . 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 06317 Self-Care for Vomiting and Diarrhea Vomiting and diarrhea can make you feel awful. Your stomach and bowels are reacting to an irritant.This might be??food, medicine, or a virus. Vomiting and diarrhea are 2 ways your body tries to remove the problem from your system. Nausea is a symptom that prevents you from eating. This can give your stomach and bowels time to recover. Self-care can help to ease your discomfort. Drink liquids Drink or sip liquids so you don't lose too much fluid (dehydration). To do this: ??? Choose clear liquids such as water or broth. ??? Don't have drinks with a lot of sugar in them. This includes juice and soda. These can make diarrhea worse. ??? If you have severe vomiting or diarrhea, don't drink sports drinks or electrolyte drinks. These don't have the right mix of water, sugar, and minerals. They can make the symptoms worse. Try an oral rehydration solution.? Suck on ice chips if nauseamakes it hard for you to drink. ?? When you???re able to eat again Try these tips: ??? As your appetite comes back, you can slowly go back to your normal diet. ??? Ask your healthcare provider if you should not eat certain foods. ?? Medicines When considering medicines: ??? Don't use medicines to stop diarrhea or vomiting unless your healthcare provider tells you to do so. Vomiting and diarrhea can help your body get rid of harmful substances. ??? Some medicines can cause vomiting and diarrhea. Talk with your provider about all medicines you take. Ask which ones may cause these symptoms ??? Any medicine with aspirin can bother your stomach. So don't use them when you have an upset stomach. ??? Some OTC antihistamines can help control nausea. Other medicines can help soothe an upset stomach. Ask your healthcare provider which medicines may help you. ?? When to call your healthcare provider Call your healthcare provider care right away if you have any of these: ??? Bloody or black vomit or stools ??? Severe, steady belly pain ??? Vomiting with a severe headache or stiff neck ??? Vomiting after a head injury ??? Vomiting and diarrhea together for more than 1 hour ??? Can't sip liquids after more than 12??hours ??? Vomiting that lasts more than 24 hours ??? Severe diarrhea that lasts more than 2??days ??? Fever of 100.4??F (38.0??C) or higher, or as advised ??? Yellowish color to your skin or the whites of your eyes ??? Can't urinate? Last Reviewed Date: 2021 ?? 7730-6073 [employer]. All rights reserved. This information is not intended as a substitute for professional medical care. Always follow your healthcare professional's instructions. ?? * Flora Sheffield MD: PERFORM, SIGN, VERIFY Event Display: Patient Education Handout Authored Date: [id number] * Flora Sheffield MD: PERFORM Event Display: Patient Education Leaflets Authored Date: [id number] Irritable Bowel Syndrome ?? 669 Irritable Bowel Syndrome Discharge Instructions You must carefully read the Consumer Information Use and Disclaimer below in order to understand and correctly use this information ?? About this topic Irritable bowel syndrome, or IBS, is a commonlong-term health problem of your belly. IBS causes problems with how your bowel functions. It oftencauses alternating constipation and diarrhea, but everyone???s symptoms are different. Some people only have constipation or diarrhea. It does not cause swelling and does not lead to a more serious problem. The cause of IBS is not clear. There is no cure for IBS. Care focuses on how to control the signs. Signs may be mild to very bad. The main signs are: ??? Belly pain or fullness ??? Gassy feeling ??? Bloating ??? Upset stomach ??? Loose or hard stools ??? Frequent bowel movements, sometimes triggered by eating ??? Mucous in your stool ??? Loss of appetite ??? Spasms in your belly ? What care is needed at home? Ask your doctor what you need to do when you go home. Make sure you ask questions if you do not understand what the doctor says. This way you will know what you need to do. Ask your doctor and learn how to cope with stress. This may include: ??? Relaxation ??? Doing an activity to relieve stress ??? Counseling ??? Joining a support group ?? What follow-up care is needed? Your doctor may ask you to make visits to the office to check on your progress. Be sure to keep these visits.What drugs may be needed?The doctor may order drugs to: ??? Help with pain ??? Control belly muscle spasms ??? Treat hard or loose stools ??? Fight an infection ??Be sure to take all drugs as ordered by your doctor.?? Will physical activity be limited? Physical activity may not be limited. You may be limited by your signs. They may keep you from going to school or work and going to social events. Regular workouts can help improve your bowel function and other signs of IBS.What changes to diet are needed? Keep a diary of what you eat and howyour body responds. This way you can figure out if anything you eat makes your signs better or worse. ??? Talk to your doctor about it. ??? Your doctor may suggest these changes. Be sure to pay attention to how your signs change with each one. ??? Eat high-fiber foods like whole grains, fruits, and vegetables. ??? Limit foods that can make you have gas. You may want to avoid onion, cabbage, [place] sprouts, dried beans, lentils, broccoli,and cauliflower. ??? Limit foods and drinks with artificial sweeteners. This includes foods with aspartame, sorbitol, and mannitol. ??? Limit milk products such as milk, ice cream, and some yogurts. ??? Avoid drinks with caffeine, such as coffee and tea. Avoid beer, wine, and mixed drinks (alcohol). ??? Avoid foods that make you feel worse. ?? When do I need to call the doctor? Signs of infection. These include a fever of 100.4??F (38??C) or higher, chills ??? Change in your bowel movements that does not go away ??? Blood in your stool ??? Throwing up and loose stools for more than 24 hours ??? Diarrhea that wakes you up from sleep ??? Severe or worsening pain in your belly ?? Teach Back: Helping You Understand The Teach Back Method helps you understand the information we are giving you. After you talk with the staff, tell them in your own words what you learned. This helps to make sure the staff has described each thing clearly. It also helps to explain things that may have been confusing. Before going home, make sure you can do these: ??? I can tell you about my condition. ??? I can tell you how I will cope with stress. ??? I can tell you how I am going to keep a diary of what foods I eat. ??? I cantell you what I will do if I have blood in my bowel movements or a change in my bowel movements that does not go away. ?? Where can I learn more? NHShttps://www.nhs.uk/conditions/erpgkougz-cqmji-pothonzq-ibs/Last Reviewed [id number] Information Use and Disclaimer:This generalized information is a limited summary of diagnosis, treatment, and/or medication information. It is not meant to be comprehensive andshould be used as a tool to help the user understand and/or assess potential diagnostic and treatment options. It does NOT include all information about conditions, treatments, medications, side effects, or risks that may apply to a specific patient. It is not intended to be medical advice or a substitute for the medical advice, diagnosis, or treatment of a health care provider based on the health care provider's examination and assessment of a patient???s specific and unique circumstances. Patients must speak with a health care provider for complete information about their health, medical questions, and treatment options, including any risks or benefits regarding use of medications. This information does not endorse any treatments or medications as safe, effective, or approved for treating a specific patient. [employer] and its affiliates disclaim any warranty or liability relatingto this information or the use thereof. The use of this information is governed by the Terms of Use, available at??https://www.[employer].Parkt/en/know/edmbvrvx-sukgpskinqjhy-nkiizWkuj Updated 12/26/21? * Flora Sheffield MD: PERFORM Event Display: Patient Education Leaflets Authored Date: [id number] Diet and Lifestyle Tips for Irritable Bowel Syndrome (IBS) ?? 74472 Diet and Lifestyle Tips for Irritable Bowel Syndrome (IBS) Your healthcare provider may suggest some lifestyle changes to help control your IBS. Changing yourdiet and managing stress are 2 of the most important changes. Follow your healthcare provider???s instructions. Try some of the advice below. Change your diet Your diet may be an important cause of IBS symptoms. You may want to try the following: ??? Pay attention to what foods bother you, and stay away from them. For example, dairy products are hard for some people to digest. Lactose-free dairy products may be better for your symptoms. ??? Don't eat high FODMAP foods. Common foods that can cause symptoms have carbohydrates called FODMAPs. Your body can't digest these well. High FODMAP foods include some fruits such as apples, vegetables such as cabbage, and some dairy. They also include certain sweeteners such as high-fructose corn syrup, sorbitol, and xylitol. Many people find that eating a diet low in FODMAPs can ease symptoms. Talk with your healthcare provider about a low FODMAP diet. ??? Drink 6 to 8 glasses of water a day. ??? Don't have caffeine or tobacco. These can affect how your digestive tract works. ??? Don't drink alcohol. It can irritate your digestive tract. It can make your symptoms worse. ??? Eat more fiber ifconstipation is a problem. Fiber makes the stool softer. That makes it easier to pass through the colon. ??? Eat more fiber if diarrhea is a problem. Fiber also helps to bind water. This can help to firm up loose stool. ?? Reduce stress Learn how to manage stress if stress or anxiety makes your IBS symptoms worse. Managing stress may help you feel better. Try these tips: ??? Find out what causes of stress in your life. ??? Learn newways to cope with them. Mindfullness, meditation, and yoga may help. ??? Regular exercise is a great way to ease stress. It can also help ease constipation. For adults, the CDC recommends 150 minutesof moderate activity each week. Or you can get 75 minutes of vigorous activity each week. It also advises muscle-strengthening activities 2 days a week. If this sounds like a lot of time, the CDC suggests breaking physical activity into 10-minute blocks. You can spread those out over a week. Developing a schedule that works for you is the sloan to a successful exercise program. ?? Last Reviewed Date: 2021 ?? 8042-4148 [employer]. All rights reserved. This information is not intended as a substitute for professional medical care. Always follow your healthcare professional's instructions. ?? Patient Care team information Care Team Personnel Name: Fawn Alberto RN Position: [facility] Nurse Member Role: Primary Care Nurse Name: Melinda Roa RN Position: [facility] RN Member Role: Primary Care Nurse Name: Vasyl Arceo RN Position: [facility] RN Member Role: Primary Care Nurse Name: Sweetie Maciel RN Position: [facility] RN Member Role: Primary Care Nurse Name: Lois Sousa RN Position: [facility] RN Member Role: Primary Care Nurse Name: Bianca Pacheco LPN Position: [facility] RN Member Role: Primary Care Nurse Name: Carlene Humphrey RN Position: [facility] RN Member Role: Primary Care Nurse Name: Devaughn Barker MD Position: [facility] Outreach Member Role: PCP Address: Address: [address] [place] [id number] Name: Carlene Blanca RN Position: [facility] RN Member Role: Primary Care Nurse Name: *Megan LEE Attending Position: [facility] ED Medicine MD Name: Amy Atkinson RN Position: [facility] ED RN W/OE and Tasks Member Role: Patient Care Provider Name: Valentin Rlolins Position: [facility] ED TA [facility] Member Role: Home Sales Service Professional Care Team Related Persons Name: FELECIA BARCLAY Address: [address] [address] Name: FELECIA BARCLAY Address: home [address] [place] [id number] Name: NATE BARCLAY Address: home [address] [place] [id number]
--- OUTSIDE RECORDS SUMMARY | 2024-08-26 06:37 | XMS_ITS | Continuity of Care Document ---
Author Organization [facility] Address [address] [place] [address]- Care Team Providers Care Hide Paster Name Role Phone Devaughn Barker MD Primary Care Physician [phone] Encounter [facility] Date(s): 02/26/24 - 03/27/24 [facility] [address] [place] [address]- Attending Physician: Admtr, Renetta Admitting Physician: Admtr, Ar8 Referring Physician: Admtr, Ar8 Allergies, Adverse Reactions, Alerts Substance Reaction Severity Status colchicine Active sulfa drugs unresponsive. Active CeleBREX unresponsive Active Flagyl Active Dilaudid Active Formaldehyde Rash [...] a schedule II opioid drug., 163, cm, .. Start Date: 06/12/23 Stop Date: 07/12/23 Status: [...] 09/22/23 12:30:00 EST, Route to Pharmacy Electronically, [facility], 163, cm, 06/11/23 9:38:00 EDT, Height, [...] Team Personnel Name: Fawn Alberto RN Position: [facility] Nurse Member Role: Primary Care Nurse Name: Melinda Roa RN Position: [facility] RN Member Role: Primary Care Nurse Name: Vasyl Arceo RN Position: [facility] RN Member Role: Primary Care Nurse Name: Lois Sousa RN Position: [facility] RN Member Role: Primary Care Nurse Name: Carlene Humprhey RN Position: [facility] Onco RN Member Role: Primary Care Nurse Name: Devaughn Barker MD Position: [facility] Outreach Member Role: PCP Address: Address: [address] [place] [address] Care Team Related Persons Name: FELECIA BARCLAY Address: [address] [place] [address] Name: FELECIA BARCLAY Address: [address] [place] [address] Name: NATE BARCLAY Address: home [address] [place] [id number]
--- OUTSIDE RECORDS SUMMARY | 2024-08-26 06:37 | XMS_ITS | Continuity of Care Document ---
Author Organization [facility] ter Address [address] [place] [id number]- Care Team Providers Care Senior Quality Assurance Engineer Name Role Phone Lucero SALINAS, Devaughn Negron Primary Care Physician Encounter [facility] Date(s): 02/12/23 - 02/17/[address] [address] Discharge Disposition: Disch/Trans to IP Rehab or unit w/in Hos Attending Physician: Vasyl Chakraborty MD Admitting Physician: Vasyl Chakraborty MD Referring Physician: Vasyl Chakraborty MD Allergies, Adverse Reactions, Alerts Substance Reaction [...] opioid drug. Start Date: 02/13/23 Status: Ordered Acetaminophen Tablet 650 mg, Tablet, By Mouth, 02/17/23 11:00:00 EDT Start Date: 02/17/23 Stop Date: 02/17/23 Status: Completed Aspirin Tablet 325 mg, By Mouth, 2 times a day, Refills 0, Maintenance, 02/13/23 7:34:00 EDT, Partial fill upon patient request if the prescription is for a schedule II opioid drug. Start Date: 02/13/23 Status: Ordered carvedilol 12.5 mg oral tablet 12.5 mg, Tablet, By Mouth, 02/17/23 9:00:00 EDT Start Date: 02/17/23 Stop Date: 02/17/23 Status: Completed Colace Capsule 100 mg, 1, capsule, By [...] 11:37:00 EDT Start Date: 02/17/20 Status: Ordered HYDROmorphone 2 mg oral tablet See Instructions, PRN Pain , Severe, Take 1-2 tablets By Mouth Every 4 hours, # 84 tablet, 0 Refills, Acute 02/24/23 8:00:00 EDT, 02/17/23 7:43:00 EDT, Tablet, Partial fill upon patient request if the prescription is for a schedule II opioid drug. Start Date: 02/17/23 Stop Date: 02/24/23 Status: Ordered Levoxyl 0.1 mg oral tablet 1 tablet = 100 mcg, By Mouth, Daily, # 30 tablet, 0 Refills, Maintenance, Tablet Start Date: 09/27/13 Status: Ordered lisinopril 20 mg oral tablet 40 mg, Tablet, By Mouth, 02/17/23 9:00:00 EDT Start Date: 02/17/23 Stop Date: 02/17/23 Status: Completed lisinopril 40 mg oral tablet [...] opioid drug. Start Date: 02/13/23 Status: Ordered traMADol 50 mg oral tablet See Instructions, PRN Pain , Mild, 1-2 tablet By Mouth Every 6 hours not to exceed 400 mg/day, # 56tablet, 0 Refills, Acute 02/24/23 8:00:00 EDT, 02/17/23 7:44:00 EDT, Tablet, Partial fill upon patient request if the prescription is for a schedule... Start Date: 02/17/23 Stop Date: 02/24/23 Status: Ordered Tramadol Tablet 100 mg, Tablet, By Mouth, Every 6 hours, PRN for Pain , Moderate, Routine, 02/12/23 10:03:00 EDT Start Date: 02/12/23 Stop Date: 03/14/23 Status: Ordered Problem List Condition Confirmation Course Effective Dates Status H ealth Status Informant Alzheimer's dementia without behavioral disturbance 1 Confirmed Active Hypothyroidism Confirmed Active IBS (irritable bowel syndrome) Confirmed Active Raynauds syndrome Confirmed Active Spinal stenosis Confirmed Active 1Alzheimer's disease with vascular contribution. Results Radiology Reports * Exam Date Time Procedure Performing Provider Status 02/12/23 11:42 AM Knee 1 or 2 Views Right Judycaro Corby medina; Leanna (Verified) Notes: (Knee 1 or 2 Views Right) Reason For Exam: Postop RESULT: Knee 1 or 2 Views Right Knee 1 or 2 Views Right, 2 views INDICATION/CLINICAL QUESTION: Reason: Postop; Clinical Question(s): Other:; Implant Position; Special Instructions: D, No flexed knee in the lateral position. Keep leg straight; 2 Views COMPARISON: None. FINDINGS: There are post surgical changes from right total knee arthroplasty in standard alignment without radiographic evidence of immediate complication. Overlying soft tissue swelling and soft tissue gas iscompatible with the immediate postoperative state. Drain in place. There is no unexpected radiopaque foreign body. IMPRESSION: Status post right total knee arthroplasty in standard alignment without evidence of immediate complication. WSN: [id number] Ordering Physician: Sanya Joseph Dictated By: Thuan Weiner MD Dictated Date/Time: 02/12/23 12:52 p Reviewed By: Thuan Weiner MD Signed By: Thuan Weiner MD Signed Date/Time: 02/12/23 12:52 pm Transcribed By: ASHWIN Transcribed Date/Time: 02/12/23 12:52 pm Vital Signs Most recent to oldest [Reference Range]: 1 2 3 Weight 81.9 kg (02/12/23 12:59 PM) Oxygen Saturation [94-100 %] 100 % (02/17/23 7:46 AM) 99 % (02/17/23 5:32 AM) 98 % (02/16/23 3:53 PM) Pulse Rate [55-90 bpm] 71 bpm (02/17/23 9:19 AM) 71 bpm (02/17/23 7:46 AM) 68 bpm (02/17/23 5:32 AM) Blood Pressure [90-138/55-84 mm Hg] 152/86mm Hg *H* (02/17/23 9:20 AM) 152/86mm Hg *H* (02/17/23 9:19 AM) 152/86mm Hg *H* (02/17/23 7:46 AM) Respiratory Rate [16-30 br/min] 16 br/min (02/17/23 12:31 PM) 16 br/min (02/17/23 7:56 AM) 18 br/min (02/17/23 7:46 AM) Temperature [96.8-100.4 DegF] 97.5 DegF (02/17/23 7:46 AM) 97.9 DegF (02/17/23 5:32 AM) 98.1 DegF (02/16/23 8:54 PM) Mode of Delivery (Oxygen) Room air (02/17/23 7:46 AM) Room air (02/17/23 5:32 AM) Room air (02/16/23 3:53 PM) Blood pressure sites Arm, left (02/17/23 7:46 AM) Arm, right (02/17/23 5:32 AM) Arm, left (02/16/23 3:59 AM) Temperature Route Oral (02/17/23 7:46 AM) Oral (02/17/23 5:32 AM) Oral (02/16/23 8:54 PM) Dry Weight 70.7 kg (02/12/23 7:38 AM) Dry Weight Obtained Via Standing scale (02/12/23 7:38 AM) Social History Social History Type Response Tobacco Other: Patient repor ts smoking a pack a day about 40 years and quit last year in November.. Sex History and physical note * Event Display: History and Physical Hospital Authored Date: [id number] * Event Display: History and Physical Hospital Authored Date: [id number] SURGICAL HISTORY AND PHYSICAL DATE: 02/12/2023 PRIMARY DIAGNOSIS: Osteoarthritis of the right knee. REASON FOR ADMISSION: Right total knee replacement with Dr. Chakraborty on 02/12/2023. HISTORY OF PRESENT ILLNESS: The patient is a 73-year-old female who presents today for evaluation of her right knee for upcoming surgery. She is well known to the practice due to her previous left knee and left hip with Dr. Chakraborty which has healed well. She is now ready to pursue a right total kneereplacement with Dr. Chakraborty on 02/12/2023. PAST MEDICAL HISTORY: 1. Osteoarthritis of the right knee. 2. Hypothyroidism. 3. Hypertension. 4. Hyperlipidemia. 5. Chronic low back pain. 6. Fibromyalgia. 7. Restless leg syndrome. 8. Lung nodules, which are benign from the workup. 9. Suspected early dementia, followed by [facility] memory clinic. She was recently started on donepezil, which patient reports she is not going to be starting until after surgery. 10. Raynaud's. 11. Pericarditis with effusion. 12. Irritable bowel syndrome. 13. Spinal stenosis. PAST SURGICAL HISTORY: 1. Left total hip replacement, 2012, Dr. Chakraborty. 2. Left total knee replacement, 2014, Dr. Chakraborty. 3. Neck surgery. 4. Lower surgery. 5. Inguinal hernia. MEDICATIONS: 1. Coreg 12.5 mg 2 times a day. She was instructed to take this with a sip of water in the morning of surgery. 2. Donepezil 5 mg, take one-half a tablet once daily at bedtime for 2 weeks, then take 1 tablet at bedtime after that. She reports she is not starting this until after surgery. 3. Gabapentin 400 mg at night. 4. Ibuprofen, which she has stopped in preparation for surgery. 5. Levoxyl 0.1 mg daily in the morning. She was instructed to take this with a sip of water the morning of surgery. 6. Lisinopril 40 mg daily. 7. Parafon Forte DSC 500 mg 3 times a day as needed. 8. Probiotic formula daily. ALLERGIES: She is allergic to CELEBREX and SULFA DRUGS, which causes unconsciousness. She is allergic to FLAGYL, reaction is neurotoxic. She is allergic to FORMALDEHYDE, which causes a rash. SOCIAL HISTORY: Reports occasional alcohol usage. Denies tobacco or illicit drug usage. PHYSICIANS: Her primary care provider is Dr. Devaughn Barker. The patient's gang investigator is Dr. Gomez Pat, through [facility]. REVIEW OF SYSTEMS: The patient denies headache, dizziness or syncope. Denies fever, chills, unexplained weight loss or fatigue. Denies rash or lesions. Denies rhinorrhea, earache, sore throat or swollen glands. Denies cough, shortness of breath or wheezing. Denies chest pain, pressure, palpitationsor edema. Denies nausea, vomiting, diarrhea, constipation, or abdominal pain. Denies dysuria, urinary urgency or frequency. Denies calf pain or history of blood clots in the legs. Denies any bleedingtendencies. Denies any active dental issues at this time. PHYSICAL EXAMINATION: VITAL SIGNS: Height 5 feet 2 inches, weight 154 pounds, temperature 97.8, blood pressure 112/68, and pulse 68. GENERAL: Alert and oriented with normal insight, affect, and grooming. SKIN: Intact without rash or lesions. Nails without clubbing or cyanosis. She has a well-healed scar over her left knee and left hip. HEENT: Normocephalic. Conjunctivae pink. Sclerae anicteric. NECK: Supple. Trachea midline. No lymphadenopathy. CHEST: Lungs are clear to auscultation bilaterally. Breathing is unlabored. CARDIOVASCULAR: Heart has a regular rate and rhythm with normal S1, S2. No murmurs, rubs or gallopsappreciated. No JVD. Carotid pulses without bruits. ABDOMEN: Soft, nontender with normal bowel sounds. No masses noted. No bruits appreciated. No erythema, no edema noted. She has a well-healed scar over her left hip and left knee. Skin temperature isnormal. Swelling is not present. Sensation is normal, 2+ dorsalis pedis pulses bilaterally. Good dorsi and plantar flexion bilaterally with full strength. Calves are supple, nontender. Skin about thefeet is intact. Her left knee range of motion is 0-120 degrees. Her right knee range of motion is 0-120 degrees. PREOPERATIVE DIAGNOSTIC DATA: Orthopedic x-rays demonstrate osteoarthritis of the right knee. EKG, which reads normal sinus rhythm, 58 beats per minute with intraatrial conduction delay. LABORATORY DATA: CBC, chem panel, and coag studies within normal limits. Her red blood cell count is 3.93, H and H are 13 and 39.6. A1c 5.0. The patient had an echocardiogram done on 12/29/2021 which showed left ventricle size is normal, left ventricular wall thickness is normal. Overall, left ventricular systolic function is normal with ejection fraction between 60-65%, grade 1 diastolic dysfunction with an impaired relaxation filling pattern. Left atrial pressure is normal. Very minor diastolic bowing of the free wall of the RA. Theaortic valve is trileaflet and appears structurally normal. No aortic stenosis or regurgitation. Inferior vena cava is dilated with poor inspiratory collapse, which is consistent with moderate to severely elevated right atrial pressures. ASSESSMENT AND PLAN: The patient has advanced osteoarthritis of the right knee and is now scheduledfor right total knee replacement with Dr. Chakraborty on 02/12/2023. The patient saw the medical consultteam for preoperative clearance, who stated she was a low risk for upcoming surgery and an elevateddelirium risk for after surgery. They indicated there is no further testing required at this time. The patient also saw her gang investigator who stated the patient is a [id number] risk for upcoming surgery and no further testing was required at this time. Discharge plans are to home. She is not a candidate to go home the same day of surgery. She will receive IV TXA. She will be on aspirin postope ratively for DVT prophylaxis. She will not receive Celebrex due to her allergy. The patient reportsthat she has taken Vicodin and Dilaudid in the past, which has worked well for her and we will planto start with one of those. The patient has been counseled regarding the risks and benefits of the proposed procedure. Her questions have been answered and she acknowledges understanding. The patient wishes to proceed with surgery and has signed the consents. CONTACTS: Her , Aleksey, phone number [phone]. Prescriptions given at the time of the H and P include none. The patient reports that she already has the full strength aspirin at home along with omeprazole. The patient did not want Colace. She will require prescription for pain medications upon discharge. Dictated by: Brianna Cohen N.P. Signing Clinician: Vasyl Chakraborty M.D. Dictated: 02/03/2023 02:03:57 Transcribed: 09:42:49 AM Transcribed by: RIA DocID: [id number] PRELIMINARY REPORT UNLESS MANUALLY/ELECTRONICALLY SIGNED Note * Leti Tracy RN: PERFORM Event Display: Discharge/Transfer Note Hospital Authored Date: [id number] Nursing Discharge Note Entered On: 02/17/2023 16:23 EDT Performed On: 02/17/2023 16:22 EDT by Leti Tracy RN Nursing Discharge Note 2 Discharge Time : 02/17/2023 15:55 EDT Discharge Level of Care at Discharge : Inpatient Rehab Facility/Unit Discharge Nursing Homes/Rehab Facilities : [address] [phone] Patient Left Unit Via : Wheelchair Patient Accompanied Off Unit with : Ambulance/Chair Van Personnel Handover Given to Transport Personnel : Yes DC Instructions Provided & Signed by Pt : Yes Patient Understands D/C Instructions : Yes Patient Instructions Discharge Signed : Yes Did Pt have Specialty Bed or Wound Vac : No Leti Tracy RN 02/17/2023 16:22 EDT * Celestina Roque RN: PERFORM, SIGN, VERIFY Event Display: Case Management Discharge Plan Authored Date: Patient: AMARIS ABRCLAY Age: 73 years Sex: Female : 1950 Associated Diagnoses: None Author: Celestina Roque RN Discharge Plan Case Management Discharge Plan : Case Management Discharge Plan Data 02/17/2023 12:34 EDT Discharge Level of Care at Discharge Inpatient Rehab Facility/Unit Discharge Nursing Homes/Rehab Facilities [facility] [address] [place] [address] Discharge Transportation Arranged [employer] [address] [place] [address] Discharge Arranged Transport Date/Time 02/17/2023 16:00 Mode of Transportation Arranged Chair Van Name of Agency #1 [facility] Service Categories #1 Occupational Therapy, Physical Therapy, Assisted Service Comments #1 You will be going to [facility] today 02/17/23 leaving 4:00 PM by chair van. Cost of chair van not covered by insurance and willl be billed to you by the [employer] estimated to be $120.00- $150.00 * Celestina Roque RN: PERFORM, SIGN, VERIFY Event Display: Case Management Discharge Plan Authored Date: Patient: AMARIS BARCLAY Age: 73 years Sex: Female : 1950 Associated Diagnoses: None Author: Celestina Roque RN Discharge Plan Case Management Discharge Plan : Case Management Discharge Plan Data 02/17/2023 12:34 EDT Discharge Level of Care at Discharge Inpatient Rehab Facility/Unit Discharge Transportation Arranged [employer] [address] [place] [address] Discharge Arranged Transport Date/Time 02/17/2023 16:00 Mode of Transportation Arranged Chair Van Name of Agency #1 [facility] Service Categories #1 Occupational Therapy, Physical Therapy, Assisted Service Comments #1 You will be going to [facility] today 02/17/23 leaving 4:00 PM by chair van. Cost of chair van not covered by insurance and willl be billed to you by the [employer] estimated to be $120.00- $150.00 * Demarcus CASTRO, Leti: PERFORM, MODIFY Event Display: Patient Education/Instruction Authored Date: [id number] Inpatient Adult Discharge Instructions [address] [address] Name: AMARIS BARCLAY : 1950 Visit: 02/12/2023 07:04:00 Current Date: 02/17/2023 15:25 Account: [id number] Inpatient Adult Discharge Instructions We would like [...] and their families. Surveys are administered by [employer] ?? If further treatment with your primary care physician or another doctor is recommended, it is important for you to keep the appointment. Call your primary care physician or return to the Emergency Department immediately if your condition worsens, fails to improve, or new symptoms develop. If you need to find a doctor, you can call [facility] for a referral at [phone] or toll free at [phone] or log in to [email or web address].. ?? You can view and manage your care through the patient portal or by using a health care britt of your choosing. [employer] is a website that allows you to securely view your medical information including your hospital discharge summary, office visit summaries, medications and follow-up visits. You can also request appointments, renew medications, and request access to your medical information using a health care britt of your choosing, or just ask a question. You can enroll at [email or web address] or register during your next office visit. You have been discharged from [facility], Patient Care Unit: SW7. If you have any questions regarding these instructions after you leave, please call us and we will be happy to assist you. [facility] Your Care Team Attending Physician Palmer SALINAS, Vasyl Diaz Discharging Providers Celestine SUE, Ashwini Braxton Reason for Your Visit OA RIGHT KNEE 23OVN Your Diagnosis Osteoarthritis of right knee Tests Performed Below is a partial list of the tests performed during your hospitalization. You may have had other tests and procedures not included in this list. Please discuss all test results with your provider. BUN CBC COVID-19 (NOVEL CORONAVIRUS), PCR Creatinine Electrolytes GLUCOSE POC Sodium Level XR Knee 1 or 2 Views Right Primary Care Provider Lucero SALINAS, Devaughn Negron Advance Directive . Discharge Vitals Temperature: 97.5 DegF Weight: 81.9 kg Pulse Rate: 71 bpm ?? Respiratory Rate: 16 br/min ?? Systolic Blood Pressure:??152 mm Hg??High ?? Diastolic Blood Pressure:??86 mm Hg??High ?? Oxygen Saturation: 100 % ?? Studies Pending All tests and labs ordered during this hospital stay have been completed unless listed below. Please discuss all pending results with your provider listed above in these instructions. ?? BUN CBC Creatinine Electrolytes What to do next Instructions From Your Doctor Discharge Orders Scheduled Follow-Up Appointments 2022 9:30 AM EDT ?? With: Halie SUE, Flavio Torres Where: [facility] [address] [place] [address]- You Need to Schedule the Following Appointments Follow Up with??[facility] When??Within 1 to 2 weeks Where: [address] [place] [address] [address] [place] [address]- Discharge Medications AMARIS BARCLAY :1950 Visit Date:02/12/2023 Medications: Please continue your medications until treatment is completed or stopped by your provider. Medications not listed below should be discontinued. Discuss any questions related to medications with your provider. What How Much When Instructions Next Dose New Acetaminophen (acetaminophen 325 mg oral tablet) 650 Milligram Oral Every 6 hours may take OTC not to exceed 3000 mg/ day ?? 02/17 1700 New Aspirin (Aspirin Tablet) 325 Milligram Oral Twice a day 02/17 2100 New Docusate (Colace Capsule) 100 Milligram Oral Twice a day 02/17 2100 New Hydromorphone (HYDROmorphone 2 mg oral tablet) See instructions Take 1-2 tablets ??By Mouth Every 4 hours ?? Printed Prescription Anytime if needed New Polyethylene Glycol 3350 (MiraLax Powder) 17 gram Oral Daily as needed for Constipation 02/18 New Senna (senna 187 mg oral tablet) 1 tab(s) Oral Daily at Bedtime as needed for as needed for constipation 02/17 2100 New Tramadol (traMADol 50 mg oral tablet) See instructions 1-2 tablet By Mouth Every 6 hours not to exceed 400 mg/ day ?? Printed Prescription 02/17 2042 Changed Donepezil (donepezil 5 mg oral tablet) 0.5 tab(s) Oral Daily at Bedtime take 2.5mg at bedtime x 2 weeks then increase to 5mg at bedtime first dose 2022 ?? 02/17 2100 Unchanged bifidobacterium-lactobacillus (Probiotic Formula oral capsule) 2 capsule Oral Daily 02/17 2100 Unchanged Carvedilol (Coreg 12.5 mg oral tablet) 1 tab(s) Oral Twice a day 02/17 2100 Unchanged Chlorzoxazone (Parafon Forte DSC 500 mg oral tablet) 1 tab(s) Oral 3 times a day as needed for Pain , Severe Anytime Unchanged Gabapentin (gabapentin 100 mg oral capsule) 4 capsule Oral Daily at Bedtime 02/17 2100 Unchanged Levothyroxine (Levoxyl 0.1 mg oral tablet) 1 tab(s) Oral Daily 02/18 0600 Unchanged Lisinopril (lisinopril 40 mg oral tablet) 1 tab(s) Oral Daily 02/18 0800 Unchanged Omeprazole 40 Milligram Oral Daily 02/18 0800 ?? What How Much When Comments Stop Taking Ibuprofen (ibuprofen 600 mg oral tablet) See instructions 1 tablet By Mouth 3 times a day for 7 days followed by 1 tab po bid for 7 days ?? Test Results Below is a partial list of the most recent Laboratory test results done prior to this discharge. You may have had other tests and procedures not included in this list. Please discuss all test resultswith your provider. BUN (02/17/2023) ???BUN - 20 mg/dL CBC (02/17/2023) ???WBC - 5.6 k/mm3???RBC - 3.22 m/mm3???Hgb - 10.2 Gm/dL???Hct - 30.6 %???MCV - 95.0 femtoliters???MCH - 31.7 pg???MCHC - 33.3 g/dL???Platelet Count - 292 k/mm3???RDW-SD - 42.9 femtoliters???MPV - 10.2 femtoliters???Nucleated RBC (Automated) - 0.0 #/100 WBC'S???Abs. NRBC - 0.0 k/mm3 COVID-19 (NOVEL CORONAVIRUS), PCR (02/17/2023) ???COVID-19 by RT-PCR - NEGATIVE Creatinine (02/17/2023) ???Creatinine-Blood - 0.7 mg/dL???Estimated GFR Creatinine - 89 ML/MIN/1.73 M2 Electrolytes (02/17/2023) ???Sodium - 133 mmol/L???Potassium - 4.7 mmol/L???Chloride - 95 mmol/L???Bicarbonate Level - 29 mmol/L???Anion Gap - 9 GLUCOSE POC (02/13/2023) ???Glucose, POC - 175 mg/dL Sodium Level (02/14/2023) ???Sodium - 131 mmol/L Allergies (NKA means No Known Allergies) Formaldehyde??(Rash) CeleBREX??( unresponsive ) Flagyl colchicine sulfa drugs??( unresponsive. ) Problems Active Problems??(7) Alzheimer's dementia without behavioral disturbance?? HLD (hyperlipidemia)?? HTN (hypertension)?? Hypothyroidism?? IBS (irritable bowel syndrome)?? Raynauds syndrome?? Spinal stenosis?? Education Materials Below is the list of Educational Leaflet Providered with your Discharge Instructions. Total Knee Replacement Discharge Instructions?? Valuables and Belongings I fully understand and agree that [facility] accepts no responsibility for all [...] of Valuable and Belonging List: With patient Possessions released to: pt reports that she has all of her belongings Date for Pt to Sign Valuables/Belongings: 02/17/23 07:56:00 ?? Other Discharge Information ? Case Management Discharge Plan?? Discharge Plan?? Discharge Agency Information?? Discharge Level of Care at Discharge: Inpatient Rehab Facility/Unit Name of Agency #1: [facility] Discharge Rx Program: Discharge Prescription Program Service Categories #1: Occupational Therapy, Physical Therapy, Assisted Discharge Transportation Arranged: [employer] [address] [place] [address] ??[phone] Service Comments #1: You will be going to [facility] today 02/17/23 leaving 4:00 PM by chair van. Cost of chair van not covered by insurance and willl be billed to you by the [employer] estimated to be $120.00- $150.00 Mode of Transportation Arranged: Chair Van ?? Discharge Arranged Transport Date/Time: 02/17/23 16:00:00 ?? Discharge Nursing Homes/Rehab Facilities: [facility] [address] [place] [address] ??[phone] ? Pulmonary Rehab Status?? Pulmonary Rehab Discharge Status?? Respiratory Rate: 16 br/min ? Common Emergency Awareness Tips IS [...] are strongly encouraged to quit. Please call [facility] [employer] [facility] at [phone] or [phone] ([phone]) or log in to [email or web address] for referrals to smoking cessation programs. ?? 391 Suicide & Crisis Lifeline is available 26/05 if you or someone you know needs to find a reason to keep living. By calling 449 you'll be connected to a skilled, trained counselor at a crisis center in your area. INPATIENT DISCHARGE INSTRUCTIONS SIGNATURE PAGE AMARIS BARCLAY Location:[facility] Registration Date and Time:02/12/2023 07:04 EDT Primary Care Physician: Lucero SALINAS, Devaughn Negron, I AMARIS BARCLAY, have received the above patient education materials/instructions and have verbalized understanding. If ambulance or transport services are being used I further acknowledge being given a choice of service. ?? If you need to contact me, please call me at this number: . Patient/Coordinate Measuring Machine Technician Name: Patient/Coordinate Measuring Machine Technician Signature: Relationship to Patient: Witness Name/Signature: Date: * Event Display: Adult Preadmission Health Questionnaire Authored Date: * Event Display: Cardiac Rhythm Strips Authored Date: * Event Display: Cardiac Rhythm Strips Authored Date: * Geneva Hare NP: MODIFY Ananya BROADCAST TRANSMITTER OPERATOR, Geneva: MODIFY, SIGN Ananya BROADCAST TRANSMITTER OPERATOR, Jose Davidya: SIGN, PERFORM Achille BROADCAST TRANSMITTER OPERATOR, Deoiya: PERFORM, SIGN Ananya BROADCAST TRANSMITTER OPERATOR, Fatoumataulfiya: SIGN, VERIFY Achille BROADCAST TRANSMITTER OPERATOR, Fatoumataulfiya: VERIFY Karlene Hamilton: MODIFY, SIGN Karlene Hamilton: SIGN, MODIFY Karlene Hamilton: MODIFY, SIGN Lisset KUO, Karlene Desai: SIGN, SIGN, MODIFY, SIGN Event Display: Discharge/Transfer Note Hospital Authored Date: [id number] Patient: AMARIS BARCLAY Age: 73 years Sex: Female : 1950 Associated Diagnoses: None Author: Geneva Hare NP Discharge Summary Admission Date: 02/12/2023 Discharge Date: 2022 Admitting Diagnosis: Right knee osteoarthritis Discharge Diagnosis: Right knee osteoarthritis Final Diagnosis: Right knee osteoarthritis Procedure: Right total knee arthroplasty Surgeon: Dr. Vasyl Chakraborty Past Medical History: 1. Osteoarthritis of the right knee. 2. Hypothyroidism. 3. Hypertension. 4. Hyperlipidemia. 5. Chronic low back pain. 6. Fibromyalgia. 7. Restless leg syndrome. 8. Lung nodules, which are benign from the workup. 9. Suspected early dementia, followed by [facility] memory clinic. She was recently started on donepezil, which patient reports she is not going to be starting until after surgery. 10. Raynaud's. 11. Pericarditis with effusion. 12. Irritable bowel syndrome. 13. Spinal stenosis. Orthopedics: The patient is status post right arthroplasty. It is anticipated that she will be discharged to SNF today pending bed availability. The patient is doing well from a surgical standpoint. Her incision is healing well. Neurovascular status is intact. Calves are supple and nontender. The patient is weight bearing as tolerated. Struggled with PT AROM 2-80, ambulating with a walker. Pain is well controlled on her current regimen, Acetaminophen 650 mg every 6 hours, tramadol 50-100mg PO q6 hrs if needed, and Dilaudid 2-4 mg every 4 hours as needed. Patient is tolerating this well. She will be sent home with a prescription for this medication. Prescription: Tramadol 50 mg tablets, take 1 to 2 tablets every 6 hours as needed for mild pain, 7 days, #56 Dilaudid 2 mg tablet, 1-2 tablets every 4 hours as needed for severe pain, 7 days # 84 Hospital course: Relatively uneventful medically. She has had slow progress with physical therapy which was complicated by fatigue and dizziness. Had post op hyponatremia with a low of 130 her sodium level is 133 this morning. Patient is voiding spontaneously via purewick. + bowel sounds. all morning bowel medications will be given in anticipation of a BM prior to discharge. No other issues. No calf tenderness. Current Medication List: Acetaminophen (acetaminophen 325 mg oral tablet) 650 Milligram By Mouth Every 6 hours may take OTC not to exceed 3000 mg/day Aspirin (Aspirin Tablet) 325 Milligram By Mouth 2 times a day bifidobacterium-lactobacillus (Probiotic Formula oral capsule) 2 capsule By Mouth Daily Carvedilol (Coreg 12.5 mg oral tablet) 12.5 Milligram 1 tablet By Mouth 2 times a day Chlorzoxazone (Parafon Forte DSC 500 mg oral tablet) 1 tab(s) 500 Milligram By Mouth 3 times a day as needed Pain , Severe Docusate (Colace Capsule) 100 Milligram 1 capsule By Mouth 2 times a day Donepezil (donepezil 5 mg oral tablet) 2.5 Milligram 0.5 tablet By Mouth Daily at bedtime take 2.5mg at bedtime x 2 weeks then increase to 5mg at bedtime first dose 02/17/2023 Gabapentin (gabapentin 100 mg oral capsule) 400 Milligram 4 capsule By Mouth Daily at bedtime Hydromorphone (HYDROmorphone 2 mg oral tablet) See Instructions as needed Pain , Severe Take 1-2 tablets By Mouth Every 4 hours Levothyroxine (Levoxyl 0.1 mg oral tablet) 1 tab(s) 100 Microgram By Mouth Daily Lisinopril (lisinopril 40 mg oral tablet) 1 tab(s) 40 Milligram By Mouth Daily Omeprazole 40 Milligram By Mouth Daily Polyethylene Glycol 3350 (MiraLax Powder) 1 pack/packet 17 gram By Mouth Daily as needed Constipation Senna (senna 187 mg oral tablet) 1 tab(s) 8.6 Milligram By Mouth Daily at bedtime as needed as needed for constipation Tramadol (traMADol 50 mg oral tablet) See Instructions as needed Pain , Mild 1-2 tablet By Mouth Every 6 hours not to exceed 400 mg/day Allergies (Active and Proposed Allergies Only) colchicine (Severity: Unknown severity, Onset: Unknown) sulfa drugs (Severity: Unknown severity, Onset: Unknown) Reactions: unresponsive. CeleBREX (Severity: Unknown severity, Onset: Unknown) Reactions: unresponsive Formaldehyde (Severity: Persistent Mild, Onset: Unknown) Reactions: Rash Flagyl (Severity: Unknown severity, Onset: Unknown) Current Labs: Last 24 Hours Basic Metabolic Panel: Hematology: Sodium: 133 mmol/L (02/17/23) Hgb: 10.2 Gm/dL (02/17/23) Potassium (POC): 4.7 mmol/L (02/17/23) Hemoglobin A1C (Monitoring): ------ Phosphorus: ------ WBC: 5.6 k/mm3 (02/17/23) Magnesium: ------ Platelets: 292 k/mm3 (02/17/23) BUN (POC) POC Cartridge: 20 mg/dL (02/17/23) INR Level: ------ Creatinine-Blood: 0.7 mg/dL (02/17/23) Creatinine Clearance: ------ Additional - Last 24 Hours Abs. NRBC: 0.0 k/mm3 (02/17/23) Anion Gap: 9 (02/17/23) Bicarbonate Level: 29 mmol/L (02/17/23) BUN: BUN (02/17/23) Chloride: 95 mmol/L (02/17/23) Creatinine, Blood: Creatinine, Blood (02/17/23) Estimated GFR Creatinine: 89 ML/MIN/1.73 M2 (02/17/23) Hct: 30.6 % (02/17/23) MCH: 31.7 pg (02/17/23) MCHC: 33.3 g/dL (02/17/23) MCV: 95.0 femtoliters (02/17/23) MPV: 10.2 femtoliters (02/17/23) Nucleated RBC (Automated): 0.0 #/100 WBC'S (02/17/23) RBC: 3.22 m/mm3 (02/17/23) RDW-SD: 42.9 femtoliters (02/17/23) DVT prophylaxis ASA EC 325 mg po bid x 30 days Disposition: Anticipates being discharged today to rehab facility pending bed and PT/OT discharge. [facility] up at [facility] on 02/26/2023 at 1 PM, patient is aware of this. The patient has an Aquacel dressing in place. She may shower with it and the dressing can be discontinued on POD 14. Expected stay at rehab is less than 30 days. Discharge Information Principal Discharge Diagnosis Discharge condition: good Compared to admission: improved Discharge Disposition Transfer to: long-term facility. Discharge Plan Discharge Disposition Discharge: . * Marizol CASTRO, Nilda Alvarez: PERFORM Event Display: Patient Education/Instruction Authored Date: [id number] Inpatient Adult Discharge Instructions [address] [address] Name: AMARIS BARCLAY : 1950 Visit: 02/12/2023 06:06:00 Current Date: 02/13/2023 08:04 Account: [id number] Inpatient Adult Discharge Instructions We would like [...] and their families. Surveys are administered by [employer] ?? If further treatment with your primary care physician or another doctor is recommended, it is important for you to keep the appointment. Call your primary care physician or return to the Emergency Department immediately if your condition worsens, fails to improve, or new symptoms develop. If you need to find a doctor, you can call [facility] for a referral at [phone] or toll free at [phone]) or log in to [email or web address].. ?? You can view and manage your care through the patient portal or by using a health care britt of your choosing. [employer] is a website that allows you to securely view your medical information including your hospital discharge summary, office visit summaries, medications and follow-up visits. You can also request appointments, renew medications, and request access to your medical information using a health care britt of your choosing, or just ask a question. You can enroll at [email or web address] or register during your next office visit. You have been discharged from [facility], Patient Care Unit: SW7. If you have any questions regarding these instructions after you leave, please call us and we will be happy to assist you. [facility] Your Care Team Attending Physician Vasyl Chakraborty MD Discharging Providers Geneva Hare NP Reason for Your Visit OA RIGHT KNEE 23OVN Your Diagnosis Osteoarthritis of right knee Tests Performed Below is a partial list of the tests performed during your hospitalization. You may have had other tests and procedures not included in this list. Please discuss all test results with your provider. BUN CBC Creatinine Electrolytes XR Knee 1 or 2 Views Right Primary Care Provider Lucero SALINAS, Devaughn Negron Advance Directive . Discharge Vitals Temperature: 98.4 DegF Weight: 81.9 kg Pulse Rate: 76 bpm ?? Respiratory Rate: 18 br/min ?? Systolic Blood Pressure:??140 mm Hg??High ?? Diastolic Blood Pressure: 64 mm Hg ?? Oxygen Saturation: 99 % ?? Studies Pending All tests and labs ordered during this hospital stay have been completed unless listed below. Please discuss all pending results with your provider listed above in these instructions. ?? BUN CBC Creatinine Electrolytes What to do next Instructions From Your Doctor Discharge Orders Scheduled Follow-Up Appointments 2022 9:30 AM EDT ?? With: Halie SUE, Flavio Torres Where: [facility] [address] [place] [address]- You Need to Schedule the Following Appointments Follow Up with??[facility] When??Within 1 to 2 weeks Where: [address] [place] [address] [address] [place] [address]- Discharge Medications AMARIS BARCLAY :1950 Visit Date:02/12/2023 Medications: Please continue your medications until treatment is completed or stopped by your provider. Medications not listed below should be discontinued. Discuss any questions related to medications with your provider. What How Much When Instructions Next Dose New Acetaminophen (acetaminophen 325 mg oral tablet) 650 Milligram Oral Every 6 hours may take OTC not to exceed 3000 mg/ day ?? New Aspirin (Aspirin Tablet) 325 Milligram Oral Twice a day 8-9pm New Docusate (Colace Capsule) 100 Milligram Oral Twice a day 8-9pm New Hydromorphone (HYDROmorphone 2 mg oral tablet) See instructions Take 1-2 tablets ??By Mouth Every 4 hours ?? Pickup at [facility] New Polyethylene Glycol 3350 (MiraLax Powder) 17 gram Oral Daily as needed for Constipation as needed over the counter New Senna (senna 187 mg oral tablet) 1 tab(s) Oral Daily at Bedtime as needed for as needed for constipation New Tramadol (traMADol 50 mg oral tablet) See instructions 1-2 tablet By Mouth Every 6 hours not to exceed 400 mg/ day ?? Pickup at [facility] Unchanged bifidobacterium-lactobacillus (Probiotic Formula oral capsule) 2 capsule Oral Daily 02/14 Unchanged Carvedilol (Coreg 12.5 mg oral tablet) 1 tab(s) Oral Twice a day 02/14 Unchanged Chlorzoxazone (Parafon Forte DSC 500 mg oral tablet) 1 tab(s) Oral 3 times a day as needed for Pain , Severe 02/14 Unchanged Gabapentin (gabapentin 100 mg oral capsule) 4 capsule Oral Daily at Bedtime 02/13 Unchanged Levothyroxine (Levoxyl 0.1 mg oral tablet) 1 tab(s) Oral Daily 02/14 Unchanged Lisinopril (lisinopril 40 mg oral tablet) 1 tab(s) Oral Daily 02/14 Unchanged Omeprazole 40 Milligram Oral Daily 02/14 Pharmacy Information [facility]: [address] [place], [place] [id number] [phone] ?? What How Much When Comments Stop Taking Donepezil (donepezil 5 mg oral tablet) See instructions Take one-half tablet once daily at bedtime for 2 weeks then take 1 tablet at bedtime ?? Stop Taking Ibuprofen (ibuprofen 600 mg oral tablet) See instructions 1 tablet By Mouth 3 times a day for 7 days followed by 1 tab po bid for 7 days ?? Test Results Below is a partial list of the most recent Laboratory test results done prior to this discharge. You may have had other tests and procedures not included in this list. Please discuss all test resultswith your provider. BUN (02/13/2023) ???BUN - 14 mg/dL CBC (02/13/2023) ???WBC - 11.7 k/mm3???RBC - 3.50 m/mm3???Hgb - 11.0 Gm/dL???Hct - 33.7 %???MCV - 96.3 femtoliters???MCH - 31.4 pg???MCHC - 32.6 g/dL???Platelet Count - 258 k/mm3???RDW-SD - 44.5 femtoliters???MPV - 10.6 femtoliters???Nucleated RBC (Automated) - 0.0 #/100 WBC'S???Abs. NRBC - 0.0 k/mm3 Creatinine (02/13/2023) ???Creatinine-Blood - 0.8 mg/dL???Estimated GFR Creatinine - 77 ML/MIN/1.73 M2 Electrolytes (02/13/2023) ???Sodium - 136 mmol/L???Potassium - 4.3 mmol/L???Chloride - 101 mmol/L???Bicarbonate Level - 26 mmol/L???Anion Gap - 9 Allergies (NKA means No Known Allergies) Formaldehyde??(Rash) CeleBREX??( unresponsive ) Flagyl colchicine sulfa drugs??( unresponsive. ) Problems Active Problems??(7) Alzheimer's dementia without behavioral disturbance?? HLD (hyperlipidemia)?? HTN (hypertension)?? Hypothyroidism?? IBS (irritable bowel syndrome)?? Raynauds syndrome?? Spinal stenosis?? Education Materials Below is the list of Educational Leaflet Providered with your Discharge Instructions. Total Knee Replacement Discharge Instructions?? Valuables and Belongings I fully understand and agree that [facility] accepts no responsibility for all [...] patient Date for Pt to Sign Valuables/Belongings: 02/12/23 13:00:00 ?? Other Discharge Information ? Case Management Discharge Plan?? Discharge Plan?? Discharge Agency Information?? Discharge Level of Care at Discharge: Homehealth/VNA Name of Agency #1: [facility] ?? Agency Hadoop Java Developer #1: [phone] ?? Service Categories #1: Physical Therapy ?? Service Comments #1: [facility] will contact you to set up a visit time after discharge. Please call [phone] if you don't hear from them. ?? Pulmonary Rehab Status?? Pulmonary Rehab Discharge Status?? Respiratory Rate: 18 br/min ? Common Emergency Awareness Tips IS IT A STROKE? Act FAST and Check for these signs: FACE Does the face look uneven? ARM Does one arm drift down? SPEECH Does their speech sound strange? TIME Call 9-1-1 at any sign of stroke ?? Heart [...] are strongly encouraged to quit. Please call [facility] [facility] at [phone] or [phone] ([phone]) or log in to [email or web address] for referrals to smoking cessation programs. ?? 662 Suicide & Crisis Lifeline is available 26/05 if you or someone you know needs to find a reason to keep living. By calling 420 you'll be connected to a skilled, trained counselor at a crisis center in your area. INPATIENT DISCHARGE INSTRUCTIONS SIGNATURE PAGE AMARIS BARCLAY Location:[facility] Registration Date and Time:02/12/2023 06:06 EDT Primary Care Physician: Lucero SALINAS, Devaughn Negron, I AMARIS BARCLAY, have received the above patient education materials/instructions and have verbalized understanding. If ambulance or transport services are being used I further acknowledge being given a choice of service. ?? If you need to contact me, please call me at this number: . Patient/Coordinate Measuring Machine Technician Name: Patient/Coordinate Measuring Machine Technician Signature: Relationship to Patient: Witness Name/Signature: Date: * Parastabrynn CASTRO, Nilda Alvarez: PERFORM Event Display: Patient Education Leaflets Authored Date: [id number] Total Knee Replacement Discharge Instructions ?? 667 Total Knee Replacement Discharge Instructions ??? Please read and review your Total Knee Replacement Book for detailed information ??? Your appetite may be decreased but try to maintain a good balanced diet ?? Ice and elevation ?Ice is important to help keep swelling down. ?Keep elevated as much as possible. ?Ice the knee 4 times a day for 20 minutes each time. Be sure not to put the ice/ice pack directly on your skin. Use a dish towel or something similar between the ice and your skin. ??? Moving ? Get up and walk frequently. ??? Do 20 ankle pumps every hour. ??? Complete your exercises 4times a day, bending and straightening your knee ??? Begin exercises the evening you go home ??? Moving is especially important. This helps to prevent blood clots. Take short frequent walks. ? Wear your knee brace when walking until your surgeon or physical therapist tells you to stop. ??? You may sleep with or without the brace and sleep anyway you are comfortable. ??? Place a pillow underthe ankle/lower leg when lying down to help with extension of your knee. ??? Do not put a pillow under your knee ??? Continue to move your foot up and down, this exercise helps to prevent blood clotsand to help reduce swelling in your knee ??? No driving until approved by your surgeon ?? Incision ?Your incision is closed with absorbable stitches and surgical glue. ?The dressing iswaterproof. You may shower the next day. ??? You may develop some discoloration around your incision (yellowish or bruising) ??? Your dressing will stay on for 1-2 weeks ?You cannot go in a bath, pool, ocean, pond, monge or jacuzzi for 6 weeks. This is to reduce your risk of infection ? You may have some numbness around the incision. This is normal and will improve with time. Some patients have numbness that does not completely go away. ?? When to call the Surgeon?CALL [phone] ?If you have shortness of breath or chest pain, call 911 or go to the nearest emergency department. ??? If you have drainage and/or redness around your wound. ?If you have a fever greater than 101.5 (38.5 degrees Celsius). ?If you have persistent calf pain or swelling (This couldbe a blood clot). ??? If your pain is worsening. ? If you have any difficulty with urination or burning with urination ? Hospital Progress note * Leti Tracy RN: SIGN, MODIFY, PERFORM, SIGN, VERIFY Event Display: Progress Note Hospital Authored Date: [id number] Patient: AMARIS BARCLAY Age: 73 years Sex: Female : 1950 Associated Diagnoses: None Author: Leti Tracy RN Findings Problem Related to Alteration in Comfort : Alteration in Comfort/new 02/17/2023 7:56 EDT Alteration in Comfort Related to Surgery Goals & Outcomes: Comfort Pt will report acceptable level of comfort & pain control, Pt will state importance of adhering to pain strategy regime, Pt will demonstrate necessary skills to manage pain, Non-verbal indicators will indicate comfort/pain control Interventions Implemented: Comfort Assess pain using appropriate pain scale/tools, Assess aggravating factors & prevent them accordingly, Assess alleviating factors & promote them accordingly Goals/Interventions, Comfort Yes Comfort, Problem Start 02/17/2023 7:57 Reviewed plan with, Comfort Patient Patient Progression, Comfort Pt progressing according to plan Comfort, Problem Ongoing Yes . Alteration in Musculoskeletal : Alteration in Musculoskeletal Func/new 02/17/2023 7:56 EDT Alteration in Musculoskeletal Related to Mobility, Orthopedic Procedure, Total joint replacement, Other: R TKR 02/12 w/ Dr. Chakraborty Goals & Outcomes, Musculoskeletal Affected extremity will maintain color/motion/sensation, Pt able to perform ADL's to best of ability, Pt demonstrates precautions/exercise/ transfers per protocol, Pt will ambulate safely with assistive device, Pt will be free from complications of immobility, Pt will demonstrate ability to participate in ADL's, Pt will report acceptable level of comfort/painrelief Interventions, Musculoskeletal Monitor patients ambulation status, monitor Color/Motion/Sensation, Assist with repositioning, Encourage deep breathing & coughing exercises, Notify MD immediately if tissue perfusion deteriorates, Obtain assistive devices as needed, Teach & Encourage use of Incentive spirometer, Teach Pt/caregiver on ADL's & adaptive equipment, Teach Pt/caregiver on exercises, Teach pt/caregiver on use of pain scale, Teach Pt/caregiver complications of immobility, Teach Pt/caregiver techniques to increase mobility, Teach Pt/caregiver on safety precautions, Incision care as ordered, Instruct pt on gait training, [place] Pt/caregiver to Total Knee Replacement protocol Goals/Interventions, Musculoskeletal Yes Musculoskeletal, Problem Start 02/14/2023 20:49 Reviewed Plan with, Musculoskeletal Patient Patient Progression, Musculoskeletal Pt progressing according to plan . Nursing Data Vital Signs : VITAL SIGNS SECTION 02/17/2023 7:46 EDT Temperature 97.5 DegF Temperature Route Oral Pulse Rate 71 bpm Respiratory Rate 18 br/min Systolic Blood Pressure 152 mm Hg H Diastolic Blood Pressure 86 mm Hg H Blood pressure sites Arm, left Mean Arterial Pressure 108 mm Hg Pulse Pressure 66 mm Hg Oxygen Saturation 100 % Mode of Delivery (Oxygen) Room air . Narrative/Incidental P- see above problems in care plan I- See above interventions E- Care assumed 0600 VSS afebrile, pt is alert and oriented to self, place and situation, could notgive exact date but knew it was February 2023. Bed alarm on for safety. Pt reported pain as 9/10 upon assessment. Pt taken off CPM at 0650. Tramadol 100mg PO admin with good effect. Pt now reports pain level as 2/10. LS CTA on RA, no SOB, no CP. Abd soft NT +BS Last BM 02/16. Eating breakfast now, no N/V. Purewick in place, draining CYU. RN spoke with pt about trying to use BSC today instead of purewick to encourage more mobility. R knee aquacell CDI. Plan for R knee in immobilizer when OOB. +PP +CSM denies N/T, +DF+PF. C boots on. RN updated pt with plan of care, call celaya within reach, hourly rounding to be done, nsg will continue to monitor. . Discharge Information Case Management Discharge Plan : Case Management Discharge Plan Data 02/14/2023 14:33 EDT Discharge [facility]/Hospice/Home Care [facility] 02/13/2023 16:59 EDT Discharge Level of Care at Discharge Not Done: not done by shift RN (Not Done) 02/12/2023 15:51 EDT Discharge Level of Care at Discharge Homehealth/VNA Name of Agency #1 [facility] Agency Hadoop Java Developer # Service Categories #1 Physical Therapy Service Comments #1 [facility] will contact you to set up a visit time after discharge. Please call [phone] if you don't hear from them. Rehabilitation Discharge : Rehab Discharge Index 02/16/2023 11:03 EDT Transfer tub/shower OT Plan Supervision 02/16/2023 9:23 EDT Walker: distance < 10 02/15/2023 11:45 EDT Transfer tub/shower OT Plan Supervision 02/14/2023 14:54 EDT Walker: distance 10-20 02/14/2023 11:15 EDT Walker: distance 20-50 02/14/2023 8:21 EDT Transfer tub/shower OT Plan Supervision 02/13/2023 15:17 EDT Walker: distance >50 02/13/2023 9:01 EDT Transfer tub/shower OT Plan Supervision 02/12/2023 15:52 EDT Comments on treatment indicated 73 yo F s/p R TKA on 02/[address] Chakraborty. WBATR LE with KI. Skilled PT for therex, tranfsers, amb with RW, stairs. Rec home with services. Walker: distance 20-50 Distance pt will ambulate 100 ft with RW Full chart review completed Yes Hospital course Hospital course Other findings see comment Plan of care PT Gait training, Transfer training, Therapeutic exercise, Functional Activities, Balance training, Neuromuscular education 02/12/2023 14:45 EDT Comments on treatment indicated OT to address ADL's, transfers, safety Full chart review completed Yes Hospital course PROCEDURE: Pt s/p R total knee replacement with Dr. Chakraborty on 02/12/2023. Transfer tub/shower OT Plan Supervision * Leti Tracy RN: PERFORM Event Display: Progress Note Hospital Authored Date: [id number] IV removed, all personal belongings packed up. Pt went with chair van to Rehab facility. Pt and Aleksey aware of plan of care. * Celestine SUE, Ashwini Braxton: PERFORM, SIGN, VERIFY Palmer SALINAS, Vasyl Diaz: REVIEW Event Display: Progress Note Hospital Authored Date: [id number] Patient: AMARIS BARCLAY Age: 73 years Sex: Female : 1950 Associated Diagnoses: None Author: Ashwini Sprague NP Ortho POD 5 s/p Right TKA S: The patient denies any SOB/CP, N/V. Initially struggled with post op dizziness now denies this AM. Voiding spontaneously via pure wick. Pain well controlled on current regimen of Tylenol 650mg PO q 6 hrs, Tramadol 50-100mg PO q 6 hrs as needed, and Dilaudid 2-4mg PO q 4 hrs as needed. The patient continued to struggle with PT over the weekend AROM 2-80. Noted a continued posterior lean and PT is recommending rehab. NA levels improved from 130 now 133 this AM. O: Vitals Temperature 97.9 (05:33) Systolic Blood Pressure 146 (05:33) Diastolic Blood Pressure 67 (05:33) Pulse 68 (05:33) SpO2 99 (05:33) Respiratory Rate 20 (05:33) Last 24 Hours Basic Metabolic Panel: Hematology: Sodium: 133 mmol/L (02/17/23) Hgb: 10.2 Gm/dL (02/17/23) Potassium (POC): 4.7 mmol/L (02/17/23) Hemoglobin A1C (Monitoring): ------ Phosphorus: ------ WBC: 5.6 k/mm3 (02/17/23) Magnesium: ------ Platelets: 292 k/mm3 (02/17/23) BUN (POC) POC Cartridge: 20 mg/dL (02/17/23) INR Level: ------ Creatinine-Blood: 0.7 mg/dL (02/17/23) Creatinine Clearance: ------ Additional - Last 24 Hours Abs. NRBC: 0.0 k/mm3 (02/17/23) Anion Gap: 9 (02/17/23) Bicarbonate Level: 29 mmol/L (02/17/23) BUN: BUN (02/17/23) Chloride: 95 mmol/L (02/17/23) Creatinine, Blood: Creatinine, Blood (02/17/23) Estimated GFR Creatinine: 89 ML/MIN/1.73 M2 (02/17/23) Hct: 30.6 % (02/17/23) MCH: 31.7 pg (02/17/23) MCHC: 33.3 g/dL (02/17/23) MCV: 95.0 femtoliters (02/17/23) MPV: 10.2 femtoliters (02/17/23) Nucleated RBC (Automated): 0.0 #/100 WBC'S (02/17/23) RBC: 3.22 m/mm3 (02/17/23) RDW-SD: 42.9 femtoliters (02/17/23) General: alert, lucid, in NAD Heart: RRR, normal S1S2 Lungs: Clear throughout Abdomen: obese, soft NT BS hypo active Neurovascular: calves soft NT, +DF/+PF Dressing: small sliver of stain noted on dressing monitor for expansion in PT A/P: 73 year old female with history of hypertension, hypothyroidism and fibromyalgia now s/p rightTKA POD 5 Recurrent post-op dizziness: Initially struggled post op, denies this AM. Hyponatremia: NA this AM 133 Pain: Continue with Tylenol, tramadol and Dilaudid Hypothyroidism: Continue with levothyroxine Fibromyalgia: Continue with gabapentin Hypertension: Continue with lisinopril. Hold for systolic blood pressure less than 130 DVT prophylaxis: Aspirin 325mg PO BID x 30 days. WBAT/ PT/OT/ CPM Discharge SNF pending bed availability Case discussed with Dr. Chakraborty * Sandhya Harrington: PERFORM, SIGN, VERIFY Event Display: Progress Note Hospital Authored Date: [id number] Patient: AMARIS BARCLAY Age: 73 years Sex: Female : 1950 Associated Diagnoses: None Author: Sandhya Harrington Findings Problem Related to Alteration in Musculoskeletal : Alteration in Musculoskeletal Func/new 02/17/2023 6:00 EDT Alteration in Musculoskeletal Related to Mobility, Orthopedic Procedure, Total joint replacement, Other: R TKR 02/12 w/ Dr. Chakraborty Goals & Outcomes, Musculoskeletal Affected extremity will maintain color/motion/sensation, Pt able to perform ADL's to best of ability, Pt demonstrates precautions/exercise/ transfers per protocol, Pt will ambulate safely with assistive device, Pt will be free from complications of immobility, Pt will demonstrate ability to participate in ADL's, Pt will report acceptable level of comfort/painrelief Interventions, Musculoskeletal Monitor patients ambulation status, monitor Color/Motion/Sensation, Assist with repositioning, Encourage deep breathing & coughing exercises, Notify MD immediately if tissue perfusion deteriorates, Obtain assistive devices as needed, Teach & Encourage use of Incentive spirometer, Teach Pt/caregiver on ADL's & adaptive equipment, Teach Pt/caregiver on exercises, Teach pt/caregiver on use of pain scale, Teach Pt/caregiver complications of immobility, Teach Pt/caregiver techniques to increase mobility, Teach Pt/caregiver on safety precautions, [place] Pt/caregiver to Total Knee Replacement protocol Goals/Interventions, Musculoskeletal Yes Musculoskeletal, Problem Start 02/14/2023 20:49 Reviewed Plan with, Musculoskeletal Patient Patient Progression, Musculoskeletal Pt progressing according to plan . Nursing Data Vital Signs : VITAL SIGNS SECTION 02/17/2023 5:32 EDT Temperature 97.9 DegF Temperature Route Oral Pulse Rate 68 bpm Respiratory Rate 20 br/min Systolic Blood Pressure 146 mm Hg H Diastolic Blood Pressure 67 mm Hg Blood pressure sites Arm, right Mean Arterial Pressure 93 mm Hg Pulse Pressure 79 mm Hg Oxygen Saturation 99 % Mode of Delivery (Oxygen) Room air 02/17/2023 2:51 EDT Early Warning Score 1.00 02/17/2023 2:51 EDT Early Warning Score 1.00 02/17/2023 2:38 EDT Early Warning Score 1.00 02/16/2023 21:44 EDT Respiratory Rate Not Done: Patient Sleeping (Not Done) 02/16/2023 21:26 EDT Respiratory Rate Not Done: Patient Sleeping (Not Done) 02/16/2023 20:54 EDT Early Warning Score 1.00 02/16/2023 20:54 EDT Temperature 98.1 DegF Temperature Route Oral Respiratory Rate 20 br/min 02/16/2023 20:31 EDT Early Warning Score 1.00 02/16/2023 20:31 EDT Early Warning Score 1.00 02/16/2023 20:26 EDT Pulse Rate 74 bpm Respiratory Rate 16 br/min Systolic Blood Pressure 143 mm Hg H Diastolic Blood Pressure 72 mm Hg . Narrative/Incidental P: Alteration in musculoskeletal status I: See interventions in above care plan E: Pt is A+Ox1-2, wifty and forgetful at times; pt with history of dementia. Pt denies any CP or SOB. Lungs are clear to auscultation bilaterally; IS education provided and encouraged 10x/hour, pt demonstrated accurately with good effort. Pt tolerating regular diet, +BS4Q, abdomen is soft and nontender, LBM 02/16. Pt T&R overnight, pt OOB 2 assist with wheeled walker. Knee immobilizer in use when OOB. Purewick in place overnight draining adequate amount of clear, yellow urine. Aquacel to R knee, intact with scant staining. DSD to KATERIN drain removal site, c/d/i. +CMS +DF +PF +PP to RLE. Pt reporting minimal to no pain overnight; medicated with scheduled gabapentin and tylenol. Pt educated on all medical collector. Pt utilizing CPM machine as ordered. Pt educated on safety and fall precautions; ptverbalized understanding. Bed in low locked position, bed alarm on for safety, hourly rounding, call celaya and belongings within reach.. Discharge Information Case Management Discharge Plan : Case Management Discharge Plan Data 02/14/2023 14:33 EDT Discharge VNA/Hospice/Home Care [facility] 02/13/2023 16:59 EDT Discharge Level of Care at Discharge Not Done: not done by shift RN (Not Done) 02/12/2023 15:51 EDT Discharge Level of Care at Discharge Homehealth/VNA Name of Agency #1 [facility] [employer] # Service Categories #1 Physical Therapy Service Comments #1 [facility] will contact you to set up a visit time after discharge. Please call [phone] if you don't hear from them. Rehabilitation Discharge : Rehab Discharge Index 02/16/2023 11:03 EDT Transfer tub/shower OT Plan Supervision 02/16/2023 9:23 EDT Walker: distance < 10 02/15/2023 11:45 EDT Transfer tub/shower OT Plan Supervision 02/14/2023 14:54 EDT Walker: distance 10-20 02/14/2023 11:15 EDT Walker: distance 20-50 02/14/2023 8:21 EDT Transfer tub/shower OT Plan Supervision 02/13/2023 15:17 EDT Walker: distance >50 02/13/2023 9:01 EDT Transfer tub/shower OT Plan Supervision 02/12/2023 15:52 EDT Comments on treatment indicated 73 yo F s/p R TKA on 02/[address] Chakraborty. WBATR LE with KI. Skilled PT for therex, tranfsers, amb with RW, stairs. Rec home with services. Walker: distance 20-50 Distance pt will ambulate 100 ft with RW Full chart review completed Yes Hospital course Hospital course Other findings see comment Plan of care PT Gait training, Transfer training, Therapeutic exercise, Functional Activities, Balance training, Neuromuscular education 02/12/2023 14:45 EDT Comments on treatment indicated OT to address ADL's, transfers, safety Full chart review completed Yes Hospital course PROCEDURE: Pt s/p R total knee replacement with Dr. Chakraborty on 02/12/2023. Transfer tub/shower OT Plan Supervision XR Knee - right 1 or 2 Views * BHSPowerscribe , CIS S: TRANSCRIBE Mudge MD, Christopher S: VERIFY Event Display: Result: Authored Date: Knee 1 or 2 Views Right, 2 views INDICATION/CLINICAL QUESTION: Reason: Postop; Clinical Question(s): Other:; Implant Position; Special Instructions: D, No flexed knee in the lateral position. Keep leg straight; 2 Views COMPARISON: None. FINDINGS: There are post surgical changes from right total knee arthroplasty in standard alignment without radiographic evidence of immediate complication. Overlying soft tissue swelling and soft tissue gas iscompatible with the immediate postoperative state. Drain in place. There is no unexpected radiopaque foreign body. IMPRESSION: Status post right total knee arthroplasty in standard alignment without evidence of immediate complication. WSN: [id number] Ordering Physician: Sanya Joseph Dictated By: Thuan Weiner MD Dictated Date/Time: 02/12/23 12:52 p Reviewed By: Thuan Weiner MD Signed By: Thuan Weiner MD Signed Date/Time: 02/12/23 12:52 pm Transcribed By: ASHWIN Transcribed Date/Time: 02/12/23 12:52 pm Patient Care team information Care Team Personnel Name: Fawn Alberto RN Position: [facility] AMB Nurse Member Role: Primary Care Nurse Name: Melinda Roa RN Position: [facility] SN RN Member Role: Primary Care Nurse Name: Vasyl Arceo RN Position: [facility] RN Member Role: Primary Care Nurse Name: Sweetie Maciel RN Position: [facility] RN Member Role: Primary Care Nurse Name: Lois Sousa RN Position: [facility] RN Member Role: Primary Care Nurse Name: Bianca Pacheco LPN Position: [facility] RN Member Role: Primary Care Nurse Name: Carlene Humphrey RN Position: [facility] RN Member Role: Primary Care Nurse Name: Devaughn Barker MD Position: [facility] Outreach Member Role: PCP Address: Address: [address] [place] [address] Name: Carlene Blanca RN Position: [facility] RN Member Role: Primary Care Nurse Name: Christian Pérez Position: [facility] TA Member Role: Patient Care Provider Name: Chris Li Position: [facility] TA w/ Yard Hand Member Role: Patient Care Provider Care Team Related Persons Name: FELECIA BARCLAY Address: home [address] [place] [address] Name: FELECIA BARCLAY Address: home [address] [place] [address] Name: NATE BARCLAY Address: home [address] [place] [address]
--- OUTSIDE RECORDS SUMMARY | 2024-08-26 06:37 | XMS_ITS | Continuity of Care Document ---
Author Organization [facility] Address [address] [place] [address]- Care Team Providers Care Mill Roll Operator Name Role Phone Lucero SALINAS, Devaughn Negron Primary Care Physician [place] [facility] [place] 08/03/24 - 08/10/24 [facility] [address] [place] [address]- Attending Physician: Flavio Ambrose NP Allergies, Adverse [...] II opio... Start Date: 06/12/23 Status: Ordered Dilaudid 2 mg oral tablet 1 tablet = 2 mg, By Mouth, Every 4 hours, 0 Refills, Maintenance, 08/02/24 10:49:00 EDT, Partial fill upon patient request if the prescription is for a schedule II opioid drug. Start Date: 08/02/24 Status: Ordered donepezil 10 mg oral tablet 1, tablet, By Mouth, Daily at bedtime, # 90 tablet, Refills 2, Maintenance, 09/22/23 12:30:00 EST, Route to Pharmacy Electronically, [facility], 163, cm, 06/11/23 9:38:00 EDT, Height, [...] Team Personnel Name: Fawn Alberto RN Position: [facility] RN Member Role: Primary Care Nurse Name: Angie Peralta RN Position: S RN Member Role: Primary Care Nurse Name: Melinda Roa RN Position: [facility] RN Member Role: Primary Care Nurse Name: Vasyl Arceo RN Position: S RN Member Role: Primary Care Nurse Name: Lois Sousa RN Position: [facility] RN Member Role: Primary Care Nurse Name: Carlene Humphrey RN Position: [facility] Onco RN Member Role: Primary Care Nurse Name: Devaughn Barker MD Position: [facility] Outreach Member Role: PCP Address: Address: [address] [place] [address]- Care Team Related Persons Name: FELECIA BARCLAY Address: home [address] [place] [address] Name: FELECIA BARCLAY Address: home [address] [place] [address] Name: NATE BARCLAY Address: home [address] [place] [id number]
--- OUTSIDE RECORDS SUMMARY | 2024-08-26 06:37 | XMS_ITS | Continuity of Care Document ---
Author Organization [facility] Address [address] [place] [address]- Care Team Providers Care Structural Drafter Name Role Phone Devaughn Barker MD Primary Care Physician En[place] [facility] [place]s): 03/19/24 - 04/18/24 [facility] [address] [place] [address]- [place] Allergies, Adverse Reactions, Alerts Substance Reaction [...] 09/22/23 12:30:00 EST, Route to Pharmacy Electronically, [facility], 163, cm, 06/11/23 9:38:00 EDT, Height, [...] Team Personnel Name: Fawn Alberto RN Position: [facility] AMB Nurse Member Role: Primary Care Nurse Name: Melinda Roa RN Position: [facility] SN RN Member Role: Primary Care Nurse Name: Vasyl Arceo RN Position: [facility] RN Member Role: Primary Care Nurse Name: Lois Sousa RN Position: [facility] RN Member Role: Primary Care Nurse Name: Carlene Humphrey RN Position: [facility] Onco RN Member Role: Primary Care Nurse Name: Devaughn Barker MD Position: [facility] Outreach Member Role: PCP Address: Address: [address] [place] [address]- Care Team Related Persons Name: FELECIA BARCLAY Address: home [address] [place] [address] Name: FELECIA BARCLAY Address: home [address] [place] [address] Name: NATE BARCLAY Address: home [address] [place] [id number]
--- OUTSIDE RECORDS SUMMARY | 2024-08-26 06:37 | XMS_ITS | Continuity of Care Document ---
Author Organization [facility] Address [address] [place] [address]- Care Team Providers Care Marble Machine Operator Name Role Phone Devaughn Barker MD Primary Care Physician [id number] Date(s): 10/01/22 - 10/08/[address] [address] Attending Physician: Flavio Ambrose NP Referring Physician: Devaughn Barker MD Allergies, Adverse Reactions, Alerts Substance Reaction Severity Status sulfa drugs Active Flagyl Active Formaldehyde Rash Persistent Mild Active CeleBREX Active Medications atorvastatin 10 mg oral tablet [...] 12/04/21 13:45:00 EST, Route to Pharmacy Electronically, [facility], Partial fill upon patient [...] Effective Dates Status H ealth Status Informant Hypothyroidism Confirmed Active IBS (irritable bowel syndrome) Confirmed Active Raynauds syndrome Confirmed Active Spinal stenosis Confirmed Active Social History Social History Type Response Smoking Status Current every day jana oker; Type: Cigarettes entered on: 02/08/15 Sex Patient Care team information Care Team Personnel Name: Fawn Alberto RN Position: [facility] Nurse Member Role: Primary Care Nurse Name: Melinda Roa RN Position: [facility] RN Member Role: Primary Care Nurse Name: Carlene Humphrey RN Position: [facility] RN Member Role: Primary Care Nurse Name: Devaugnh Barker MD Position: [facility] Outreach Member Role: PCP Address: Address: [address] [place] [address]- Care Team Related Persons Name: FELECIA BARCLAY Address: home [address] [place] [address] Name: FELECIA BARCLAY Address: home [address] [place] [address] Name: NATE BARCLAY Address: home [address] [place] [address]
--- OUTSIDE RECORDS SUMMARY | 2024-08-26 06:37 | XMS_ITS | Continuity of Care Document ---
Author Organization [facility] Address [address] [place] [address]- Care Team Providers Care Balloon Tester Name Role Phone Lucero SALINAS, Devaughn Negron Primary Care Physician [phone] [id number] 10/01/22 - 10/31/22 [facility] [address] [place], [place] [address] Attending Physician: Renetta Low Admitting Physician: [...] 12/04/21 13:45:00 EST, Route to Pharmacy Electronically, [facility], Partial fill upon patient [...] Type Response Smoking Status Current every day sm oker; Type: Cigarettes entered on: 02/08/15 Sex Patient Care team information Care Team Personnel Name: Fawn Alberto RN Position: [facility] Nurse Member Role: Primary Care Nurse Name: Melinda Roa RN Position: [facility] SN RN Member Role: Primary Care Nurse Name: Carlene Humphrey RN [facility] RN Member Role: Primary Care Nurse Name: Devaughn Barker MD Position: [facility] Outreach Member Role: PCP Address: Address: [address] [place], [place] [id number]- [place] Care Team Related Persons Name: FELECIA BARCLAY Address: [address] [place] [address] Name: FELECIA BARCLAY Address: [address] [place] [address] Name: NATE BARCLAY Address: [address] [place] [address]
--- OUTSIDE RECORDS SUMMARY | 2024-08-26 06:37 | XMS_ITS | Continuity of Care Document ---
Author Organization [facility] Address [address] [place] [address]- Care Team Providers Care Systems Checkout Mechanic Name Role Phone Lucero SALINAS, Devaughn Negron Primary Care Physician Encounter [facility] [place] Date(s): 12/03/21 - 12/04/[address] [address]- Encounter Diagnosis Pneumonia(Final) - 12/03/21 Discharge Disposition: A-D/C Home Attending Physician: Gwendolyn Dahl MD Admitting Physician: Dav Hilton MD, Dale Morin Referring Physician: Not on Staff, Referring MD [...] 12/04/21 13:45:00 EST, Route to Pharmacy Electronically, [facility], Partial fill upon patient [...] opioid drug. Start Date: 12/03/21 Status: Ordered Coreg 12.5 mg oral tablet 12.5 mg, Tablet, By Mouth, 12/04/21 9:00:00 EST Start Date: 12/04/21 Stop Date: 12/04/21 Status: Completed gabapentin 100 mg oral capsule 400 mg, [...] oral tablet 40 mg, Tablet, By Mouth, 12/04/21 9:00:00 EST Start Date: 12/04/21 Stop Date: 12/04/21 Status: Completed lisinopril 40 mg oral tablet [...] Active Raynauds syndrome(Confirmed) Active Spinal stenosis(Confirmed) Active Results Radiology Reports * Exam Date Time Procedure Performing Provider Status 12/03/21 8:05 AM Chest Portable Reecedimitri Domonique; Au th (Verified) Notes: (Chest Portable) Reason For Exam: Shortness of Breath RESULT: Chest Portable Examination: Portable chest performed on 12/03/2021. History: Midsternal chest pain. Shortness of breath. Findings: A frontal view of the chest is compared to a prior study dated 02/16/2020. The cardiac silhouette appears enlarged, increased in size from the prior study. This could be due to low lung volumes and the AP technique. Left basilar linear atelectasis or scar is noted. The right lung is clear. There may be a trace left pleural effusion. Rightward curvature within the spine may be positional. IMPRESSION: Left lower lobe atelectasis or scar. Possible trace left pleural effusion. WSN: [id number] Ordering Physician: Payam Puentes V Dictated By: Aggie Christie MD Dictated Date/Time: 12/03/21 8:22 am Reviewed By: Aggie Christie MD Signed By: Aggie Christie MD Signed Date/Time: 12/03/21 8:22 am Transcribed By: ASHWIN Transcribed Date/Time: 12/03/21 8:20 am Vital Signs Most recent to oldest [Reference Range]: 1 2 3 Height 160 cm (12/04/21 11:39 AM) 160 cm (12/04/21 4:37 AM) 160 cm (12/03/21 11:41 PM) Weight 71 kg (12/03/21 9:13 AM) 71 kg (12/03/21 7:45 AM) Oxygen Saturation [94-100 %] 96 % (12/04/21 11:39 AM) 98 % (12/04/21 4:37 AM) 96 % (12/03/21 11:41 PM) Pulse Rate [55-90 bpm] 79 bpm (12/04/21 11:39 AM) 77 bpm (12/04/21 7:34 AM) 66 bpm (12/04/21 4:37 AM) Body Mass Index [18.5-24.99] 27.73 *H* (12/03/21 9:13 AM) Blood Pressure [90-138/55-84 mm Hg] 157/106mm Hg *H* (12/04/21 11:39 AM) 204/95mm Hg *H* (12/04/21 7:34 AM) 204/95mm Hg *H* (12/04/21 7:34 AM) Respiratory Rate [16-30 br/min] 16 br/min (12/04/21 11:39 AM) 18 br/min (12/04/21 9:00 AM) 18 br/min (12/04/21 4:37 AM) Temperature [96.8-100.4 DegF] 98.1 DegF (12/04/21 11:39 AM) 97.6 DegF (12/04/21 4:37 AM) 97.7 DegF (12/03/21 11:41 PM) Mode of Delivery (Oxygen) Room air (12/04/21 11:39 AM) Room air (12/04/21 4:37 AM) Room air (12/03/21 11:41 PM) Blood pressure sites Arm, right (12/04/21 11:39 AM) Arm, right (12/04/21 4:37 AM) Arm, right (12/03/21 11:41 PM) Temperature Route Oral (12/04/21 11:39 AM) Oral (12/04/21 4:37 AM) Oral (12/03/21 11:41 PM) Dry Weight 71 kg (12/03/21 9:13 AM) 71 kg (12/03/21 7:45 AM) Social History Social History Type Response Smoking Status Current every day jana reynolds; Type: Cigarettes entered on: 02/08/15 Sex
--- OUTSIDE RECORDS SUMMARY | 2024-08-26 06:37 | XMS_ITS | Continuity of Care Document ---
Author Organization [facility] Address [address] [place] [address]- Care Team Providers Care Grain Oilseed Or Pasture Farm Worker Name Role Phone Devaughn Barker MD Primary Care Physician [place] [facility] [place]s): 10/13/23 - 11/12/23 [facility] [address] [place] [address]- Attending Physician: Renetta Low Admitting Physician: Renetta Low Referring Physician: Renetta Low Allergies, Adverse Reactions, Alerts Substance Reaction Severity [...] 09/22/23 12:30:00 EST, Route to Pharmacy Electronically, [facility], 163, cm, 06/11/23 9:38:00 EDT, Height, [...] Team Personnel Name: Fawn Alberto RN Position: [facility] AMB Nurse Member Role: Primary Care Nurse Name: Melinda Roa RN Position: [facility] SN RN Member Role: Primary Care Nurse Name: aVsyl Arceo RN Position: [facility] RN Member Role: Primary Care Nurse Name: Lois Sousa RN Position: [facility] RN Member Role: Primary Care Nurse Name: Bianca Pacheco LPN Position: [facility] RN Member Role: Primary Care Nurse Name: Carlene Humphrey RN Position: [facility] RN Member Role: Primary Care Nurse Name: Devaughn Barker MD Position: [facility] Outreach Member Role: PCP Address: Address: [address] [place] [address]- Care Team Related Persons Name: FELECIA BARCLAY Address: home [address] [place], [place] Name: FELECIA BARCLAY Address: [address] [place], [place] Name: NATE BARCLAY Address: [address] [place] [address]
--- OUTSIDE RECORDS SUMMARY | 2024-08-26 06:37 | XMS_ITS | Continuity of Care Document ---
Author Organization [facility] Address [address] [place] [address]- Care Team Providers Care Monomer Recovery Supervisor Name Role Phone Lucero SALINAS, Devaughn Negron Primary Care Physician [place] [facility] [place] - 03/[place]/23 [facility] [address] [place], [place] [address] Attending Physician: Renetta Low [...] Team Personnel Name: Fawn Alberto RN Position: [facility] AMB Nurse Member Role: Primary Care Nurse Name: Melinda Roa RN Position: [facility] RN Member Role: Primary Care Nurse Name: Vasyl Arceo RN Position: [facility] RN Member Role: Primary Care Nurse Name: Sweetie Maciel RN Position: [facility] RN Member Role: Primary Care Nurse Name: Lois Sousa RN Position: [facility] RN Member Role: Primary Care Nurse Name: Bianca Pacheco LPN Position: [facility] RN Member Role: Primary Care Nurse Name: Carlene Humphrey RN Position: [facility] RN Member Role: Primary Care Nurse Name: Devaughn Barker MD Position: [facility] Outreach Member Role: PCP Address: Address: [address] [place] [id number] Name: Carlene Blanca RN Position: [facility] RN Member Role: Primary Care Nurse Care Team Related Persons Name: FELECIA BARCLAY Address: home [address] [place], [place] Name: FELECIA BARCLAY Address: home [address] [place], [place] Name: NATE BARCLAY Address: home [address] [place] [address]
--- OUTSIDE RECORDS SUMMARY | 2024-08-26 06:37 | XMS_ITS | Continuity of Care Document ---
Author Organization [facility] Address [address] [place] [address]- Care Team Providers Care Speaker Wirer Name Role Phone Devaughn Barker MD Primary Care Physician En[place] [facility] [place] Date(s): 03/19/24 - 04/18/24 [facility] [address] [place] [address]- [place] Allergies, Adverse Reactions, Alerts Substance Reaction [...] 09/22/23 12:30:00 EST, Route to Pharmacy Electronically, [facility], 163, cm, 06/11/23 9:38:00 EDT, [...] Team Personnel Name: Fawn Alberto RN Position: [facility] AMB Nurse Member Role: Primary Care Nurse Name: Melinda Roa RN Position: [facility] SN RN Member Role: Primary Care Nurse Name: Vasyl Arceo RN Position: [facility] RN Member Role: Primary Care Nurse Name: Lois Sousa RN Position: [facility] RN Member Role: Primary Care Nurse Name: Carlene Humphrey RN Position: [facility] Onco RN Member Role: Primary Care Nurse Name: Devaughn Barker MD Position: [facility] Outreach Member Role: PCP Address: Address: [address] [place] [address]- Care Team Related Persons Name: FELECIA BARCLAY Address: home [address] [place] [address] Name: FELECIA BARCLAY Address: home [address] [place] [address] Name: NATE BARCLAY Address: home [address] [place] [address]
--- OUTSIDE RECORDS SUMMARY | 2024-08-26 06:38 | XMS_ITS | Continuity of Care Document ---
Author Organization [facility] ter Address [address] [place] [address]- Care Team Providers Care Electric Scoop Operator Name Role Phone Devaughn Barker MD Primary Care Physician [place] [facility] [place] 04/20/21 - 04/20/[address] [address]- Encounter Diagnosis Closed head injury without loss of consciousness(Final) - 04/20/21 Facial contusion(Final) - 04/20/21 Discharge Disposition: A-D/C Home Attending Physician: Jordan Lyon MD Admitting Physician: Jordan Lyon MD Referring Physician: Not on Staff, Referring [...] Active Raynauds syndrome(Confirmed) Active Spinal stenosis(Confirmed) Active Vital Signs Most recent to oldest [Reference Range]: 1 2 Weight 69 kg (04/20/21 12:00 PM) Oxygen Saturation [94-100 %] 98 % (04/20/21 1:22 PM) 100 % (04/20/21 12:00 PM) Pulse Rate [55-90 bpm] 61 bpm (04/20/21:22 PM) 66 bpm (04/20/21 12:00 PM) Blood Pressure [90-138/55-84 mm Hg] 111/ 58mm Hg (04/20/21 1:22 PM) 134/72mm Hg (04/20/21 12:00 PM) Respiratory Rate [16-30 br/min] 15 br/mi n *L* (04/20/21: PM) 18 br/min (04/20/21 12:00 PM) Temperature [96.8-100.4 DegF] 98.4 DegF (04/20/21 12:00 PM) Mode of Delivery (Oxygen) Room air (04/20/21 1:22 PM) Room air (04/20/21 12:00 PM) Blood pressure sites Arm, right (04/20/21:22 PM) Arm, right (04/20/21 12:00 PM) Temperature Route Oral (04/20/21 12:00 PM) Dry Weight 69 kg (04/20/21 12:00 PM) Weight Obtained Via Standing scale (04/20/21 12:00 PM) Dry Weight Obtained Via Standing scale (04/20/21 12:00 PM) Social History Social History Type Response Smoking Status Current every day jana reynolds; Type: Cigarettes entered on: 02/08/15 Sex
--- OUTSIDE RECORDS SUMMARY | 2024-08-26 06:38 | XMS_ITS | Continuity of Care Document ---
Author Organization [facility] Address [address] [place] [address]- Care Team Providers Care Designer/Writer Name Role Phone Lucero SALINAS, Devaughn Negron Primary Care Physician [place] [facility] [place] - 03/29/[address] [address]- Attending Physician: Flavio Ambrose NP Allergies, Adverse [...] Team Personnel Name: Fawn Alberto RN Position: [facility] AMB Nurse Member Role: Primary Care Nurse Name: Melinda Roa RN Position: [facility] RN Member Role: Primary Care Nurse Name: Vasyl Arceo RN Position: [facility] RN Member Role: Primary Care Nurse Name: Sweetie Maciel RN Position: [facility] RN Member Role: Primary Care Nurse Name: Lois Sousa RN Position: [facility] RN Member Role: Primary Care Nurse Name: Bianca Pacheco LPN Position: [facility] RN Member Role: Primary Care Nurse Name: Carlene Humphrey RN Position: [facility] RN Member Role: Primary Care Nurse Name: Devaughn Barker MD Position: [facility] Outreach Member Role: PCP Address: Address: [address] [place] [id number] Name: Carlene Blanca RN Position: [facility] RN Member Role: Primary Care Nurse Care Team Related Persons Name: FELECIA BARCLAY Address: home [address] [place] [address] Name: FELECIA BARCLAY Address: home [address] [place], [place] Name: NATE BARCLAY Address: home [address] [place] [address]
--- OUTSIDE RECORDS SUMMARY | 2024-08-26 06:38 | XMS_ITS | Continuity of Care Document ---
Author Organization [facility] Address [address] [place] [address]- Care Team Providers Care Group Insurance Specialist Name Role Phone Lucero SALINAS, Devaughn Negron Primary Care Physician [phone] [facility] [place] 09[place]16/23 [facility] [address] [place] [address]- Attending Physician: Flavio Ambrose NP Allergies, Adverse [...] Team Personnel Name: Fawn Alberto RN Position: [facility] Nurse Member Role: Primary Care Nurse Name: Melinda Roa RN Position: [facility] SN RN Member Role: Primary Care Nurse Name: Vasyl Arceo RN Position: [facility] RN Member Role: Primary Care Nurse Name: Lois Sousa RN Position: [facility] RN Member Role: Primary Care Nurse Name: Bianca Pacheco LPN Position: [facility] RN Member Role: Primary Care Nurse Name: Carlene Humphrey RN Position: [facility] RN Member Role: Primary Care Nurse Name: Devaughn Barker MD Position: [facility] Outreach Member Role: PCP Address: Address: [address] [place] [address] Name: Carlene Blanca RN Position: [facility] RN Member Role: Primary Care Nurse Care Team Related Persons Name: FELECIA BARCLAY Address: home [address] [place] [address] Name: FELECIA BARCLAY Address: home [address] [place] [address] Name: NATE BARCLAY Address: home [address] [place] [address]
--- OUTSIDE RECORDS SUMMARY | 2024-08-26 06:38 | XMS_ITS | Continuity of Care Document ---
Author Organization [facility] Address [address] [place] [address]- Care Team Providers Care Psychology Intern Name Role Phone Lucero SALINAS, Devaughn Negron Primary Care Physician Encounter [facility] [place] Date(s): 09/09/23 - 10/09/23 [facility] [address] [place] [address]- Attending Physician: Admtr, Renetta Admitting Physician: Admtr, [...] Team Personnel Name: Fawn Alberto RN Position: [facility] AMB Nurse Member Role: Primary Care Nurse Name: Melinda Roa RN Position: [facility] RN Member Role: Primary Care Nurse Name: Vasyl Arceo RN Position: [facility] RN Member Role: Primary Care Nurse Name: Lois Sousa RN Position: [facility] RN Member Role: Primary Care Nurse Name: Bianca Pacheco LPN Position: [facility] RN Member Role: Primary Care Nurse Name: Carlene Humphrey RN Position: [facility] RN Member Role: Primary Care Nurse Name: Devaughn Barker MD Position: [facility] Outreach Member Role: PCP Address: Address: [address] [place] [address] Name: Carlene Blanca RN Position: [facility] RN Member Role: Primary Care Nurse Care Team Related Persons Name: FELECIA BARCLAY Address: home [address] [place], [place] Name: FELECIA BARCLAY Address: [address] [place], [place] Name: NATE BARCLAY Address: home [address] [place] [id number]
--- OUTSIDE RECORDS SUMMARY | 2024-08-26 06:38 | XMS_ITS | Continuity of Care Document ---
Author Organization [facility] Address [address] [place] [address]- Care Team Providers Care Bag Washer Name Role Phone Devaughn Barker MD Primary Care Physician [place] [facility] [place]23 - 12/25/23 [facility] [address] [place] [address]- [place] Allergies, Adverse Reactions, Alerts Substance Reaction Severity Status colchicine Active Dilaudid Active CeleBREX unresponsive Active Formaldehyde Rash Persistent [...] 09/22/23 12:30:00 EST, Route to Pharmacy Electronically, [facility], 163, cm, 06/11/23 9:38:00 EDT, Height, [...] Team Personnel Name: Fawn Alberto RN Position: [facility] AMB Nurse Member Role: Primary Care Nurse Name: Melinda Rao RN Position: [facility] SN RN Member Role: Primary Care Nurse Name: Vasyl Arceo RN Position: [facility] RN Member Role: Primary Care Nurse Name: Lois Sousa RN Position: [facility] RN Member Role: Primary Care Nurse Name: Bianca Pacheco LPN Position: [facility] RN Member Role: Primary Care Nurse Name: Carlene Humphrey RN Position: [facility] Onco RN Member Role: Primary Care Nurse Name: Devaughn Barker MD Position: [facility] Outreach Member Role: PCP Address: Address: [address] [place] [address]- Care Team Related Persons Name: FELECIA BARCLAY Address: home [address] [place] [address] Name: FELECIA BARCLAY Address: [address] [place] [address] Name: NATE BARCLAY Address: [address] [place] [address]
--- OUTSIDE RECORDS SUMMARY | 2024-08-26 06:38 | XMS_ITS | Continuity of Care Document ---
Author Organization [facility] ter Address [address] [place] [address]- Care Team Providers Care Commercial Roofer Name Role Phone Celestina Daniels MD Primary Care Physician [place] [facility] [place](s): 02/16/20 - 02/17/[address] [address]- [facility] Discharge Disposition: A-D/C Home Attending Physician: Drew SALINAS, Thiago Ruelas Admitting Physician: Gwendolyn Dahl MD Referring Physician: Not on Staff, Referring [...] Active Raynauds syndrome(Confirmed) Active Spinal stenosis(Confirmed) Active Procedures Procedure Date Related Diagnosis Body Site Status Cervical discectomy Compl eted Results Radiology Reports * Exam Date Time Procedure Performing Provider Status 02/16/20 10:07 AM Chest 2 Views Frontal and Lat Frankie, Kwadwo sanchez; Auth (Verified) Notes: (Chest 2 Views Frontal and Lat) Reason For Exam: chest pain;Other: RESULT: Chest 2 Views Frontal and Lat PA and lateral chest dated February 16, 2020. Comparison films are from September 16, 2013. HISTORY: Chest pain. FINDINGS: The cardiac silhouette is within normal limits for size. The aorta is unfolded with muralcalcifications. Some very minimal interstitial thickening is present at the lung bases bilaterally.No pleural effusion is identified. No airspace consolidation is noted. Degenerative changes are noted in the spine. Postoperative changes are noted in the lower cervical spine. IMPRESSION: Minimal increased interstitial markings at the lung bases. Findings could be the result of scarringor early pneumonia. Examination [address]. Thank you for allowing me to participate in the care of this patient. WSN: [id number] Ordering Physician: Pia Dsouza Dictated By: Alonso Salas MD Dictated Date/Time: 02/16/20 10:11 a Reviewed By: Alonso Salas MD Signed By: Alonso Salas MD Signed Date/Time: 02/16/20 10:11 am Transcribed By: ASHWIN Transcribed Date/Time: 02/16/20 10:09 am Vital Signs Most recent to oldest [Reference Range]: 1 2 3 Height 167.6 cm (02/17/20 10:58 AM) 167.6 cm (02/17/20 9:06 AM) 167.6 cm (02/17/20 5:00 AM) Weight 72.1 kg (02/16/20 5:27 PM) Oxygen Saturation [94-100 %] 99 % (02/17/20 10:58 AM) 97 % (02/17/20 9:06 AM) 98 % (02/17/20 5:00 AM) Pulse Rate [55-90 bpm] 74 bpm (02/17/20 10:58 AM) 80 bpm (02/17/20 9:06 AM) 73 bpm (02/17/20 5:00 AM) Body Mass Index [18.5-24.99] 25.67 *H* (02/16/20 5:27 PM) Blood Pressure [90-138/55-84 mm Hg] 157/85mm Hg *H* (02/17/20 10:58 AM) 150/77mm Hg *H* (02/17/20 9:40 AM) 150/77mm Hg *H* (02/17/20 9:06 AM) Respiratory Rate [16-30 br/min] 18 br/min (02/17/20 10:58 AM) 16 br/min (02/17/20 9:06 AM) 19 br/min (02/17/20 5:00 AM) Temperature [96.8-100.4 DegF] 98.9 DegF (02/17/20 10:58 AM) 97.9 DegF (02/17/20 9:06 AM) 98.2 DegF (02/17/20 5:00 AM) Mode of Delivery (Oxygen) Room air (02/17/20 10:58 AM) Room air (02/17/20 9:06 AM) Room air (02/17/20 5:00 AM) Blood pressure sites Arm, right (02/17/20 10:58 AM) Arm, right (02/17/20 9:06 AM) Arm, right (02/17/20 5:00 AM) Temperature Route Oral (02/17/20 10:58 AM) Oral (02/17/20 9:06 AM) Oral (02/17/20 5:00 AM) Dry Weight 72.1 kg (02/16/20 5:27 PM) Weight Obtained Via bedscale (02/16/20 5:27 PM) Dry Weight Obtained Via bedscale (02/16/20 5:27 PM) Social History Social History Type Response Smoking Status Current every day jana reynolds; Type: Cigarettes entered on: 02/08/15 Sex
--- OUTSIDE RECORDS SUMMARY | 2024-08-26 06:38 | XMS_ITS | Continuity of Care Document ---
Author Organization [facility] ter Address [address] [place] [address]- Care Team Providers Care Air Intercept Controller Name Role Phone Devaughn Barker MD Primary Care Physician Encounter 08/08/24 - 08/09/[address] [address] Attending Physician: Not on Staff, Attending MD Referring Physician: Not on Staff, Referring MD Allergies, Adverse Reactions, Alerts Substance Reaction Severity Status colchicine Active Formaldehyde Rash Persistent Mild Active CeleBREX unresponsive Active sulfa drugs unresponsive. Active Flagyl Active Dilaudid Active Medications acetaminophen 325 mg oral tablet [...] opioid drug., 163, cm, ... Start Date: 8/10/23 Stop Date: 07/12/23 Status: Ordered Aspirin Tablet [...] 09/22/23 12:30:00 EST, Route to Pharmacy Electronically, [facility], 163, cm, 06/11/23 9:38:00 EDT, Height, [...] Exam Date Time Procedure Performing Provider Status 08/08/24 1:43 PM MRI Thoracic Spine W/O Contrast Auth (Verified) Notes: (MRI Thoracic Spine W/O Contrast) Reason For Exam: - Other Symptoms And Signs Involving The Musculoskeletal System;- Other Symptoms And Signs Involving The Musculoskeletal System RESULT: MRI Thoracic Spine W/O Contrast [facility] VISIT NUMBER :[id number] Patient Name: Amaris Barclay Date of : 1950 Date of Exam: 08-08-2024 Referring Physician: Robert [address] [place], [place] [address] Exam: MR Thoracic Spine (C-) CPT 74304 Room Description: [facility] 3.0T HISTORY: Left leg pain. COMPARISON: Lumbar spine MRI, 06/02/2024. CT abdomen pelvis, 06/09/2023. FINDINGS: ALIGNMENT, VERTEBRAE, MARROW, AND DISCS: On the localizer sequence postoperative changes are seen from anterior fusion at C5-6. There is straightening of the normal lordosis with at least mild canal stenosis at C3-4. There is dextroscoliosis of the lower thoracic spine. There is minimal anterolisthesis of T1 and T2. Remaining sagittal alignment is normal. Vertebral body heights are preserved. There is severe multilevel disc space narrowing with anterior osteophyte formation and vacuum phenomenon. Multilevel Modic type II and type III endplate changes are seen. THORACIC CORD: There is compression of the cord at T10-11 due to disc osteophyte and posterior ligamentous calcification as well as facet spurring with focal high T2 signal seen within the left cord suggesting myelomalacia. Otherwise, thoracic cord is normal in caliber and signal throughout. PARASPINAL TISSUES: Surrounding thoracic soft tissues are unremarkable. DETAILED FINDINGS BY LEVEL: At C7-T1 there is disc osteophyte and facet spurring causing mild canal stenosis as well as severe narrowing of both neural foramen. At T1-T2 there is minimal disc bulging and anterolisthesis causing mild canal stenosis as well as bilateral facet spurring. There is severe bilateral neural foraminal stenosis. At T2-3 there is no significant canal or neural foraminal stenosis. At T3-4 there is minimal disc osteophyte and facet spurring without canal stenosis. Moderate bilateral neural foraminal stenosis is noted. At T4-5, T5-6, and T6-7 there is minimal disc osteophyte and facet spurring without significant canal or neural foraminal stenosis. At T7-8 there is disc osteophyte as well as posterior ligamentous calcification and facet spurring causing mild canal stenosis as well as severe narrowing of both neural foramen. At T8-9 there is disc osteophyte and mild facet spurring causing mild canal stenosis as well as severe narrowing of both neural foramen At T9-10 there is disc osteophyte, posterior ligamentous calcification, and facet spurring causing mild to moderate canal stenosis as well as severe narrowing of both neural foramen. At T10-11 there is disc osteophyte, posterior ligamentous calcification, and facet spurring causing moderate to severe canal stenosis with mild cord compression. Focal myelopathic signal abnormality in the left cord. Mild bilateral neural foraminal stenosis is noted. At T11-12 there is disc osteophyte and bilateral facet spurring without significant canal stenosis. Mild right and moderate to severe left neural foraminal stenosis is noted. At T12-L1 there is disc osteophyte and facet spurring with superimposed partially calcified central superior extrusion causing mild canal stenosis as well as moderate right and severe left neural foraminal stenosis. IMPRESSION: 1. Advanced multilevel degenerative changes are seen in the thoracic spine, most pronounced at T10-11 where there is moderate to severe canal stenosis with mild cord compression and focal myelopathic signal abnormality in the left cord. 2. There is multilevel neural foraminal stenosis due to marginal osteophyte and facet spurring as detailed above. Electronically Signed By: Soniya Morrison MD Dictated By: Not on Staff , LUBNA SALINAS Dictated Date/Time: 08/09/24 4:45 pm Reviewed By: Not on Staff , LUBNA SALINAS Signed By: Not on Staff , LUBNA SALINAS Signed Date/Time: 08/09/24 4:45 pm Transcribed By: KATHY Transcribed Date/Time: 08/09/24 4:45 pm Social History Social History Type Response Smoking Status Former smoker, quit more than 30 days ago entered on: 10/13/23 Sex Patient Care team information Care Team Personnel Name: Fawn Alberto RN Position: [facility] RN Member Role: Primary Care Nurse Name: Angie Peralta RN Position: [facility] RN Member Role: Primary Care Nurse Name: Melinda Roa RN Position: [facility] SN RN Member Role: Primary Care Nurse Name: Vasyl Arceo RN Position: [facility] RN Member Role: Primary Care Nurse Name: Lois Sousa RN Position: [facility] RN Member Role: Primary Care Nurse Name: Carlene Humphrey RN Position: [facility] Onco RN Member Role: Primary Care Nurse Name: Devaughn Barker MD Position: [facility] Outreach Member Role: PCP Address: Address: [address] [place] [id number]- Care Team Related Persons Name: FELECIA BARCLYA Address: home [address] [place] [address] Name: FELECIA BARCLAY Address: home [address] [place] [address] Name: NATE BARCLAY Address: home [address] [place] [address]
--- NOTE | 2024-08-26 07:08 | MHC.SHP ---
Pre-Procedural Eval Section A - 24 Hr Update-Section A only Date of Service: 08/26/24 The patient is an INPATIENT: No Changes since office visit: No Cold of Flu in the past 2 weeks, No New Medical Problems, No Changes in Medication and No Patient answered all questions The patient has been examined within 24 hours of the surgical procedure. The History & Physical has been completed within 30 days and I have reviewed it.: No Section B - Complete if H&P > 30 days Chief Complaint: Other symptoms and signs involving the musculoskel Allergies: Allergies Allergy/AdvReac Type Severity Reaction Status Date / Time metronidazole [From FLAGYL] Allergy Severe UNRESPONSIV Verified 04/17/21 06:47 E Sulfa (Sulfonamide Allergy Severe UNRESPONSIV Verified 04/19/24 14:07 Antibiotics) E [SULFA (SULFONAMIDE ANTIBIOTICS)] celecoxib [From CELEBREX] Allergy Unknown CONTRAINDIC Verified 04/17/21 06:47 ATED colchicine Allergy Unknown Verified 08/20/24 06:31 hydromorphone Allergy Unresponsiv Verified 08/20/24 12:12 e levofloxacin [From Levaquin] Allergy Nausea Verified 08/20/24 06:31 Review of Systems Sugical H&P ROS: Negative: Constitution, Cardiovascular, Respiratory, Neurological, Psychiatric, Hem-Onc, Allergic/Immunologic, Gastrointestinal, Genitourinary, Musculoskeletal, Integumentary, Endocrine and Eyes/Ears/Nose/Throat Exam Surgical H&P Exam: Normal: HEENT, Normal: Heart, Normal: Lungs, Normal: Extremities, Normal: Abdomen, Normal: Skin and Normal: Neurological (awake, alert,oriented x 3 ) Plan Diagnosis/Plan: Unchanged left T10-11 decompression Time Spent With Patient Time: Total time managing care of this patient today __8__ minutes.
--- NOTE | 2024-08-26 07:31 | P.DS_ITS ---
DS: Providers Provider Date of Service: 08/26/24 Date of discharge: 08/26/24 Primary care physician: Devaughn Barker MD Admitting clinician: Simon Salgado DS: Diagnosis Discharge Diagnosis (1) Thoracic spondylosis with myelopathy: Status: Acute DS: Summary Time Attestation Discharge Coordination Time (in mins): 5 Quality: Safe Use of Opioids Does Pt have an Active Cancer Diagnosis on the Problem List?: No Quality: Stroke Does the patient have a stroke diagnosis?: No Physical Exam Vital Signs: Vital Signs: Last Vital Signs Pulse 58 08/20/24 12:24 Resp 16 08/20/24 12:24 BP 124/61 08/20/24 12:24 Pulse Ox 98 08/20/24 12:24 O2 Del Method Room Air 08/20/24 12:24 BMI result Body Mass Index 24.2 Discharge Plan Discharge Patient Disposition: Home, Self-Care Referrals: Devaughn Barker MD [Primary Care Provider] - 1 Week Discharge Medications: New oxycodone 5 mg tablet 5 mg PO Q4H PRN (Reason: pain) Qty: 30 0RF Rx Instructions: Partial Fill upon patient request. Continued carvedilol 12.5 mg tablet 1 tab PO BID chlorzoxazone 500 mg tablet 1 tab PO DAILY PRN (Reason: Muscle Pain) tramadol 50 mg tablet 1 tab PO Q6-8H PRN (Reason: Pain) gabapentin 300 mg capsule 300 mg PO BEDTIME Patient Comments: to equal total dose of 400 mg at bedtime gabapentin 100 mg capsule 100 mg PO BEDTIME lisinopril 40 mg tablet 1 tab PO DAILY amoxicillin 500 mg Capsule 1,000 mg PO ONCE donepezil 10 mg tablet 10 mg PO BEDTIME fexofenadine 180 mg Tablet 180 mg PO DAILY amlodipine 5 mg tablet 5 mg PO DAILY prochlorperazine maleate 10 mg tablet 10 mg PO BID PRN (Reason: Nausea) omeprazole 40 mg capsule,delayed release(DR/EC) 40 mg PO QAM ibuprofen 200 mg Tablet 200 mg PO Q6H PRN (Reason: Pain) magnesium oxide 500 mg magnesium Tablet 1,000 mg PO BID Multivitamin 50 Plus Tablet 1 tab PO DAILY rosuvastatin 5 mg tablet 10 mg PO BEDTIME Bacillus coagulans-inulin 1 billion-250 cell-mg Capsule 1 cap PO DAILY levothyroxine 75 mcg tablet 75 mcg PO DAILY Held aspirin 325 mg Tablet 325 mg PO BID Hold Instructions: Resume on 09/02/24. A resume aspirin 7 days after surgery Discontinued hydrocodone-acetaminophen 5-325 mg tablet 1 tab PO Q6-8H PRN (Reason: Pain) Discharge Orders: Discharge Order (Routine); Ordered 08/26/24 Ordered By: Jose Luis Jones Diet: Advance to usual diet Activity on Discharge: As tolerated Activity Restrictions/Additional Instructions: After your spinal surgery we ask you to observe the following restrictions/guidelines: Activity: It is normal to feel some discomfort as you increase your activity, but that will improve with time. We ask you avoid heavy lifting or acitivities that cause pain. As a general rule, 8lbs is a safe limit for lifting right after surgery. Walk as much as you feel comfortable but not to exhaustion. You will feel extra tired the first few days after surgery. Stay well hydrated. It is OK to walk up and down stairs You may return to driving when you are off narcotics (such as vicodin, oxycodone, dilaudid, etc), and you are back to normal functional capacity. If you have any concerns please check with office before driving. Return to work is specific to each patient and each surgery, so please speak with your doctor/PA at first follow up. Please bring paperwork such as FMLA at that time if you need it filled out. Medications: You can resume aspirin 7 days after surgery For optimum pain control, it is best to start with a combination of 500 mg of Tylenol every 4 hours with 600 mg of Motrin every 8 hours, and use narcotics as needed in between for breakthrough pain. We will give you a short supply of narcotics after surgery (usually one weeks worth). If you need more please call the office but do not use more than prescribed. You will need to give our office 48 hours notice if you need narcotics refilled and we do not fill narcotics on weekends or evenings. If you are on a narcotic, it is a good idea to take a stool softener such as colace or senna to avoid constipation If you take blood thinner such as aspirin, Plavix, Coumadin, Effient, Eliquis etc for conditions such as Afib, DVT, Pulmonary embolus, coronary disease, stents etc please speak with your surgeon about specific details as to when you can resume these medications. You can resume NSAIDs on post op day 1 (eg: Motrin, Naproxen, etc). Follow up: Please call the office, , after surgery to arrange a 3 week follow up for wound check. Wound Care: You may remove your dressing on the first day after surgery. ?You may ?leave open to air. Please do not remove the steri strips underneath. they will fall off on their own in one week. IT IS NORMAL FOR THE WOUND TO OOZE OR BE BLOODY FOR A FEW DAYS AFTER SURGERY. ?IF THIS HAPPENS JUST PLACE NEW DRESSING OVER IT TO AVOID STAINING CLOTHES. You may shower on post op day # 1 We ask that you do not let the water soak the wound. If it does get wet, just towel dry lightly. Please do not scrub your incision or place any type of chemical/ointment on the wound. No tub baths, pools or jacuzzis for one month. If you have any leaking or redness from your wound, or fevers, please call office Print Language: Upper Sorbian
[2024-08-26] MEDS: Lactated Ringers 1,000 ML 100 ML IVCONT (07:39)
[2024-08-26] MEDS: Gabapentin 300 MG CAPSULE PO (07:44)
[2024-08-26] MEDS: methocarbamoL 750 MG TABLET PO (07:45)
[2024-08-26 07:49] VITALS: BP 144/67; PULSE 66; RESP 12; TEMP 36.4; O2SAT 98
--- NOTE | 2024-08-26 09:28 | W.PM.OPN ---
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 I have explained the nature, purpose and benefits of the operation. I have discussed the risks and benefit of the operation including possible complications or adverse events with patient/family. Alternative(s) were discussed with the patient with their relative benefits and risks as well as the consequences of not accepting the operation were included in obtaining consent. 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 The patient was offered a T10-11 laminotomy to decompress the spinal cord. The procedure complications were explained. The patient was consented. The patient was brought to the operating room and endotracheally intubated. The patient was turned in prone position on the Familia frame. Prep and drape was done followed by timeout. The Physician assistant district attorney provided access. A mid lumbar incision was made followed by release of the paravertebral muscle on the left side to expose the T10-11 lamina and facet joints. Multiple counting was done with x-rays to katrin the correct level. The microscope was brought in. I took over the procedure. The high-speed drill was used to do a left T10-11 laminotomy until flavum ligament was reached. A #2 Kerrison was used to expand the laminotomy near flush to the pedicles and to include a partial facetectomy. The flavum ligament was opened and resected with a #3 Kerrison to decompress the underlying thecal sac. The spinous process was undercut after wishes flavum ligament was further resected contralaterally to make sure that the spinal cord was decompressed bilaterally. Hemostasis was done. Another round of counting with x-rays was done to confirm that we operated on the correct level. The physician assistant district attorney close the Incision in 2 layers. Steri-Strips were used to approximate incision. An OpSite with Tegaderm was used to cover the incision. All sponge needle counts were correct. Patient was extubated and transported in stable is to recovery room. Anesthesia: General Estimated Blood Loss (ml): 25 Complications: None Duration of Surgery: Under 60 Minutes Postoperative Plan: Discharge to home
[2024-08-26 09:43] VITALS: BP 142/72; PULSE 80; RESP 16; TEMP 36.2; O2SAT 100
[2024-08-26 09:45] VITALS: BP 147/74; PULSE 78; RESP 16; O2SAT 97
[2024-08-26 09:50] VITALS: BP 133/73; PULSE 72; RESP 16; O2SAT 98
[2024-08-26 09:55] VITALS: BP 129/74; PULSE 74; RESP 16; O2SAT 97
[2024-08-26 10:10] VITALS: BP 137/67; PULSE 79; RESP 16; TEMP 36.1; O2SAT 97
== END 2024-08-26 10:51 | disposition home or self-care (01) ==
PROVIDERS: Nurse Practitioner; PCP Internal Medicine; Visit Provider Neurological Surgery
PROC: (CPT 63046; principal; 2024-08-26 09:10)
DX: M47.14 Other spondylosis with myelopathy, thoracic region (principal); M51.04 Intervertebral disc disorders with myelopathy, thoracic region; G82.20 Paraplegia, unspecified; G95.29 Other cord compression; M62.81 Muscle weakness (generalized); M79.7 Fibromyalgia; I25.10 Atherosclerotic heart disease of native coronary artery without angina pectoris; Z88.2 Allergy status to sulfonamides; Z88.1 Allergy status to other antibiotic agents; Z98.890 Other specified postprocedural states
CPT/HCPCS: 63046; 36415; 80048; 85027; J0131; J0690; J1100; J2003; J2405; J2704; J3010

== ENCOUNTER → 2024-08-26 06:35 | Outpatient (BNV) | payer BC, SELFPAY | PROVIDERS: PCP Internal Medicine; Visit Provider Neurological Surgery | DX: M47.14 Other spondylosis with myelopathy, thoracic region (principal) | CPT/HCPCS: 63046; 99499 ==

== ENCOUNTER 2024-09-16 10:58 | Outpatient (AMB) | payer BC, SELFPAY ==
--- NOTE | 2024-09-16 11:02 | HO.SPINEOV ---
Intake Visit Reasons: 1st post op Intake Note: Mrs. Obrien is here today for her 1st post-operative visit. Escalation Engineer Required: No Allergies metronidazole [From FLAGYL] Allergy (Severe, Verified 08/26/24 07:15) UNRESPONSIVE Sulfa (Sulfonamide Antibiotics) [SULFA (SULFONAMIDE ANTIBIOTICS)] Allergy (Severe, Verified 08/26/24 07:15) UNRESPONSIVE celecoxib [From CELEBREX] Allergy (Unknown, Verified 08/26/24 07:15) CONTRAINDICATED colchicine Allergy (Verified 08/26/24 07:15) Unknown hydromorphone Allergy (Verified 08/26/24 07:15) Unresponsive levofloxacin [From Levaquin] Allergy (Verified 08/26/24 07:15) Nausea Assessment & Plan Assessment & Plan (1) S/P spinal surgery: Code(s): Z98.890 - Other specified postprocedural states Category: Surgical Plan Procedure: Bilateral T10-11 Laminotomy Radha is a pleasant 74-year-old female who comes in today for a follow-up after having a T10/11 thoracic decompression completed for severe spinal stenosis at this level. She reports that overall she has been doing well since her surgery. She has had improvement regarding the paresthesias in her bilateral lower extremities, but states she still has quite a bit of weakness. She has been working with [facility] Physical therapy to address her weakness. She did asked several questions regarding this, and states that she was hopeful she would be recovering faster. We discussed the postoperative healing course and I answered all the questions that she and her significant other had. They did report quite a bit of concern regarding her postoperative instructions. Apparently they had questions regarding physical therapy and medications, and had reached out to our office at one point but did not hear back from us until I did my postoperative call backs routinely the following week. No new neurological deficits. The patient continues to mobilize with the assistance of a wheelchair. She is able to stand and walk short distances but remains unsteady and doing so. Her posterior incision site appears closed and well healing. I would like to follow up with the patient again in 6 weeks. She is agreeable to this. Liu Salgado MD,PhD [facility] Coding Level of Care Code Global (40483) Diagnoses S/P spinal surgery Z98.890
== END 2024-09-16 11:20 | disposition home or self-care (01) ==
PROVIDERS: PCP Internal Medicine; Visit Provider Physician Assistant
DX: Z98.890 Other specified postprocedural states (principal)
CPT/HCPCS: 99024

== ENCOUNTER 2024-10-07 09:02 | Outpatient (AMB) | payer BC, SELFPAY ==
--- NOTE | 2024-10-07 09:05 | HO.SPINEOV ---
Intake Visit Reasons: back pain sx 08/26/24 Intake Note: Ms. Obrien is here today c/o back pain. patient had surgery on 08/26/24. 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 Modeler Required: No Allergies metronidazole [From FLAGYL] Allergy (Severe, Verified 10/07/24 09:07) UNRESPONSIVE Sulfa (Sulfonamide Antibiotics) [SULFA (SULFONAMIDE ANTIBIOTICS)] Allergy (Severe, Verified 10/07/24 09:07) UNRESPONSIVE celecoxib [From CELEBREX] Allergy (Unknown, Verified 10/07/24 09:07) CONTRAINDICATED colchicine Allergy (Verified 10/07/24 09:07) Unknown hydromorphone Allergy (Verified 10/07/24 09:07) Unresponsive levofloxacin [From Levaquin] Allergy (Verified 10/07/24 09:07) Nausea Assessment & Plan Assessment & Plan (1) Lumbar radiculopathy: Code(s): M54.16 - Radiculopathy, lumbar region Category: Medical Plan Procedure: Bilateral T10-11 Laminotomy through left-sided approach Radha is a pleasant 74 year old female who comes in today for a subsequent follow up visit after having a T10-11 laminectomy completed by our service on 08/26/24. The surgery was completed for thoracic myelopathy to halt disease progression due to severe cord compression. To recap she was initially evaluated in office for progressive weakness in her bilateral lower extremities and shooting pain down her right leg. Since her surgery, she reports continuation of the weakness in her extremities, however she has worked extensively with physical therapy in an attempt to address this. She feels that both her weakness and the pain in her right leg are limiting her from being able to walk independently. She reports that she was still unable to ambulate on her own, and needs significant support to walk properly. On review of her previous MRI imaging at [facility] it appears she has severe stenosis at L3-4 which i would rate as moderate to severe worse on the right. On examination she is wheelchair-bound. She has no new neurological deficits. She has no tenderness to palpation around the incision site. Her incision is closed and well healing. I am concerned that Radha may have some persistent lumbar radiculopathy from the stenosis at L3-4 which i would rate as moderate to severe worse on the right. We discussed the possibility of surgical correction, however I believe due to the patient's Alzheimer's and difficulty reorienting after surgery, she would benefit more so from a series of injections. She is currently established with Dr. Alvarez at [facility]. I will send him a copy of this note and ask that he evaluate her for conservative interventions to address her right lumbar radiculopathy. Liu Salgado MD,PhD [facility] Coding Level of Care Code Global (07311) Diagnoses Lumbar radiculopathy M54.16
--- OUTSIDE RECORDS SUMMARY | 2024-10-13 00:44 | XMS_ITS ---
Author Organization [facility] Address [address] [place] [id number] Care Team Providers Care Manager Of Case Management Name Role Phone Roshni SALINAS, Vasyl Primary Care Provider Unava ilable Gennaro Pisano, Mehul Rosado [phone] REASON FOR VISIT ov recall Encounters Encounter Location Date Provider Diagnosis [facility] [address] [place] [address] 07/09/2023 Mehul Burdick Jr PLAN OF TREATMENT No Information
--- OUTSIDE RECORDS SUMMARY | 2024-10-13 00:44 | XMS_ITS ---
Author Organization [facility] Address [address] [place] [address] Care Team Providers Care Electronic Gluer Name Role Phone Roshni SALINAS, Vasyl Primary Care Provider Unava ildionne Burdick Jr, Mehul Rosado REASON FOR VISIT refill MEDICATIONS Medication SIG (Take, Route, Frequency, Duration) Notes Start Date End Date Status Diphenoxylate-Atropine 2.5-0.025 MG 1 [id number] as needed for diarrhea Orally Four times a day for 30 days 05/15/2023 Active Encounters Encounter Location Date Provider Diagnosis [facility] [address] [address] 05/15/2023 Mehul Burdick Jr Diarrhea, unspecified type R19.7 ASSESSMENTS Encounter Date Diagnosis Assessment Notes Treatment Notes Treatment Clinical Notes 05/15/2023 Diarrhea, unspecified type (ICD-10 - R19.7) PLAN OF TREATMENT Medication Medication Name Sig Start Date Stop Date Notes Diphenoxylate-Atropine 2.5-0.025 MG 1 [id number] as needed for diarrhea Orally Four times a day for 30 days 05/15/2023
--- OUTSIDE RECORDS SUMMARY | 2024-10-13 00:44 | XMS_ITS ---
Author Organization [facility] Address [address] [place] [address] Care Team Providers Care Senior Scientist Name Role Phone Roshni SALINAS, Vasyl Primary Care Provider Jess Burdick Jr, Mehul Unavailable ALLERGIES Allergen (clinical drug ingredient) Drug/Non Drug Allergy documented on EMR Reaction Allergy Type Onset Date Status colchicine Colchicine Unknown Drug Allergy Activ e Sulfa Unknown Drug Allergy Active metronidazole Flagyl Unknown Drug Allergy Act roel celecoxib Celebrex Unknown Drug Allergy Active REASON FOR VISIT Patient presents today for diarrhea MEDICATIONS Medication SIG (Take, Route, Frequency, Duration) Notes Start Date End Date Status Levoxyl 100 MCG 1 tablet on an empty stomach in the morning Orally Once a day Active Gabapentin 300 MG 1 tablet Orally Twice a day/prn Active rifAXIMin 550 MG 1 tablet Orally Three times a day for 14 days Intermittent treatment for IBS D. 04/30/2023 Active Diphenoxylate-Atropine 2.5-0.025 MG 1 [id number] as needed for diarrhea Orally Four times a day for 30 days 05/15/2023 Active amLODIPine Besy-Benazepril HCl 2.5-10 MG as directed Orally Active Prochlorperazine Maleate 10 MG TAKE 1 TABLET BY MOUTH TWICE DAILY for 30 Active Prilosec 20 MG 1 Orally Once a day for 30 days 07/09/2023 Active Omeprazole 40 MG TAKE 1 CAPSULE BY MOUTH EVERY DAY 30 MINUTES PRIOR TO MORNING MEAL for 90 Active Atorvastatin Calcium 10 MG Oral for 90 Active Probiotic - 1 capsule Orally once a day Active Compazine 10 MG 1 tablet Orally prn for 30 days Active Lisinopril 40 MG Oral for 90 A ctive Levothyroxine Sodium 100 MCG Oral for 90 Active Carvedilol 12.5 MG Oral for 90 Active traMADol HCl 50 MG 1 tablet as needed Orally every 6 hrs Active Vicodin 5-300 MG 1 tablet as needed Orally every 6 hrs Active SOCIAL HISTORY Tobacco Use: Social History Observation Description Date Details (start date - stop date) Former Smoker NA - NA Sex Assigned At : Social History Observation Description Sex Assigned At Unknown Tobacco Use/Smoking Question Answer Notes Patient is a former smoker How long has it been since you last smoked? 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) Active confirmed [id number] VITAL SIGNS BMI 23.24 kg/m2 07/09/2023 Blood pressure systolic 000 mm Hg 07/09/20 23 Blood pressure diastolic 00 mm Hg 023 Height 66 in 07/09/2023 Temperature 97.5 degrees Fahrenheit 07/09/20 23 Weight 144 lbs 07/09/2023 Encounters Encounter Location Date Provider Diagnosis [facility] [address] [place] [address] 07/09/2023 Mehul Burdick Jr Irritable bowel syndrome with diarrhea K58.0 ; Gastroesophageal reflux disease without esophagitis K21.9 and Infection due to Blastocystis species A07.8 ASSESSMENTS Encounter Date Diagnosis Assessment Notes Treatment Notes Treatment Clinical Notes 07/09/2023 Irritable bowel syndrome with diarrhea (ICD-10 - K58.0) 07/09/2023 Gastroesophageal ref lux disease without esophagitis (ICD-10 - K21.9) 07/09/2023 Infection due to Blastocystis species (ICD-10 - A07.8) PLAN OF TREATMENT Medication Medication Name Sig Start Date Stop Date Notes Prilosec 20 MG 1 Orally Once a day for 30 days 07/09/2023 Next Appt Details Follow Up: 1 Year, Reason:
== END 2024-10-07 09:31 | disposition home or self-care (01) ==
PROVIDERS: PCP Internal Medicine; Visit Provider Physician Assistant
DX: M54.16 Radiculopathy, lumbar region (principal)
CPT/HCPCS: 99024

== ENCOUNTER 2024-10-18 13:29 | Outpatient (AMB) | payer BC, SELFPAY ==
--- NOTE | 2024-10-18 13:36 | HO.SPINEOV ---
Intake Visit Reasons: 6 month follow up Intake Note: Ms. 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 Required: No Allergies metronidazole [From FLAGYL] Allergy (Severe, Verified 10/07/24 09:07) UNRESPONSIVE Sulfa (Sulfonamide Antibiotics) [SULFA (SULFONAMIDE ANTIBIOTICS)] Allergy (Severe, Verified 10/07/24 09:07) UNRESPONSIVE celecoxib [From CELEBREX] Allergy (Unknown, Verified 10/07/24 09:07) CONTRAINDICATED colchicine Allergy (Verified 10/07/24 09:07) Unknown hydromorphone Allergy (Verified 10/07/24 09:07) Unresponsive levofloxacin [From Levaquin] Allergy (Verified 10/07/24 09:07) Nausea Assessment & Plan Assessment & Plan (1) Lumbar radiculopathy: Code(s): M54.16 - Radiculopathy, lumbar region Category: Medical (2) Thoracic spondylosis with myelopathy: Code(s): M47.14 - Other spondylosis with myelopathy, thoracic region Category: Medical Plan Mrs Obrien is here in follow-up. She underwent her T10-11 bilateral decompression. She has seen some improvement in her symptoms. She has a history of dementia and is a difficult historian. Her who is here with her today, confirms that she has seen some improvement in her strength in her walking, however she is dealing with leg pain shooting down her legs with walking. This limits her somewhat. She is going to see at [facility] today to be re-evaluated for stenosis and possible injections. She does have an MRI from [place] showing significant dextroscoliotic curvature, stenotic areas along L3-4, L2-3 and L1-2 along with foraminal stenosis. We have typically tried to be conservative with surgery because of the effects of anesthesia with her mentation. At this point, it is probably the safest thing to do just let her continue with the conservative management until things get to a point where it is no longer working. 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 Jose Luis Salgado MD, PhD [facility] Coding Level of Care Code Global (46789) Diagnoses Lumbar radiculopathy M54.16 Thoracic spondylosis with myelopathy M47.14
== END 2024-10-18 14:11 | disposition home or self-care (01) ==
PROVIDERS: PCP Internal Medicine; Visit Provider Physician Assistant
DX: M54.16 Radiculopathy, lumbar region (principal); M47.14 Other spondylosis with myelopathy, thoracic region
CPT/HCPCS: 99024

== ENCOUNTER 2024-12-02 14:29 | Outpatient (AMB) | payer BC, SELFPAY ==
--- NOTE | 2024-12-02 14:39 | HO.SPINEOV ---
Intake Visit Reasons: follow up Ref from [facility] Intake Note: Ms. Obrien is here today to F/u after being seen at PT. Inspectors And Regulatory Officers Required: No Allergies metronidazole [From FLAGYL] Allergy (Severe, Verified 10/07/24 09:07) UNRESPONSIVE Sulfa (Sulfonamide Antibiotics) [SULFA (SULFONAMIDE ANTIBIOTICS)] Allergy (Severe, Verified 10/07/24 09:07) UNRESPONSIVE celecoxib [From CELEBREX] Allergy (Unknown, Verified 10/07/24 09:07) CONTRAINDICATED colchicine Allergy (Verified 10/07/24 09:07) Unknown hydromorphone Allergy (Verified 10/07/24 09:07) Unresponsive levofloxacin [From Levaquin] Allergy (Verified 10/07/24 09:07) Nausea Assessment & Plan Assessment & Plan (1) Lumbar radiculopathy: Code(s): M54.16 - Radiculopathy, lumbar region Category: Medical Plan Mrs Obrien is returning to see us. She is a patient well known to us from previous history of a T10-11 decompression last year for spinal cord impingement with difficulty walking. She did see some improvement after that surgery, however what is been bothering her the most more recently is intense pain radiating from her back down into her thigh anteriorly. We sent her back to Dr. Alvarez at [facility] who had her undergo right L3 and right L4 TF ease and these did give her temporary albeit short-term relief of her symptoms. She came back in today to review if there are any surgical options. She has a complicated lumbar history in that she has had 2 previous decompressions, 1 done about 20 years ago, another 1 done at [facility] about 4-5 years ago. She has a severe scoliotic curvature with the apex at the L1-2, T12-L1 junction. She has moderate stenosis at L1-2, in addition to right L3-4 lateral recess stenosis and right L3 foraminal stenosis. Her is with her here today and she reports that the leg pain has been more intense than usual, and the is reporting that she is now having a lot of difficulty walking and she is barely ambulatory. I reviewed her MRI from [place] and her scoliosis x-rays again. I explained to her that her situation is complicated in that she has had 2 previous lumbar surgeries, and she has a severe scoliotic curvature of her back in addition to what looks like osteoporosis on the x-ray. I believe she has been told that she has osteopenia but based on the x-ray imaging her bones appear very porous. Typically with scoliotic patient we like to do cages and correction using instrumentation hardware but I think in the end she is going to be high risk for failure because of her lack of bone quality. Often a simple decompression in his scoliotic patient will give temporary relief but they end up needing to come back and having more surgery because it can lead to some instability. I am not quite sure what to do with her. I am going to review everything with Dr. Salgado and see if he has any other thoughts or if he would be willing to offer her surgery. The patient is interested in having treatment of her osteoporosis, and is followed by endocrinology . They requested I send him a copy of this note. Total amount of time spent in this visit was 20 minutes in discussion of symptoms, lumbar imaging results and subsequent plan of care Jose Luis Salgado MD,PhD [facility] Coding Level of Care Code Est Pt Level 3 (60789) Diagnoses Lumbar radiculopathy M54.16
--- OUTSIDE RECORDS SUMMARY | 2024-12-02 18:26 | XMS_ITS ---
Author Organization [facility] Address [address] [place] [id number] Care Team Providers Care Shell Maker Lockstitch Name Role Phone Roshni SALINAS, Vasyl Primary Care Provider Unava ilable Gennaro Pisano, Mehul Rosado [phone] REASON FOR VISIT ov recall Encounters Encounter Location Date Provider Diagnosis [facility] [address] [place] [address] 07/09/2023 Mehul Burdick Jr PLAN OF TREATMENT No Information
--- OUTSIDE RECORDS SUMMARY | 2024-12-02 18:26 | XMS_ITS | Data Portability ---
Author Organization [facility], , [facility] Address [address] [place] [address] Care Team Providers Care Supervisor Calibration Name Role Phone NICOLE PATEL Primary Care Provider AURELIO CRUZ OTHER VIRIDIANA BRAVO Reconditioning Associate TARIQ HUNTER Building Illuminating Engineer [facility] Orthopedist STERLING SINGER Neurologist GINETTE ARMIJO Orthopedic Surgeon [phone] NISHA LAY Extractive Metallurgist [facility] Urologist TARIQ DUKES International Tax Manager [facility] Sports Medici ne Assessment Encounter Date Assessment Date Assessment LastModified by Organization Details LastModified Time 03/25/2024 03/25/2024 74yo woman, with a history of hypertension, kindly referred by Dr. Patel for hypothyroidism. 03/11/24 tsh 0.25, 10/09/23 ft4 1.2, tsh 0.1, 02/04/23 tsh 3.2, b12 387, 11/21/22 LDL 105, 05/31/22 tsh 1, ft4 1.2, TSH is mildly low. This suggests mildly high thyroid hormone, but this has improved.Aleksey joins visit today. We discussed her sweating on standing lately, and I suspect menopausal hot flashes. I suggest reducing thyroid hormone and reassessing in 3mo. [email or web address] Not available 03/25/2024 14:51:30 07/01/2024 07/01/2024 74yo woman, with a history of hypertension, kindly referred by Dr. Patel for hypothyroidism. 06/24/24 tsh 1.3, 03/11/24 tsh 0.25, 10/09/23 ft4 1.2, tsh 0.1, 02/04/23 tsh 3.2, b12 387, 11/21/22 LDL 105, 05/31/22 tsh 1, ft4 1.2, TSH is normal and suggests adequate thyroid hormone. Aleksey joins visit today. I believe that lower appetite and trouble swallowing contributes to weight loss and lower thyroid hormone requirement. We will reevaluate in 6mo, and she will seek dilation for her esophageal strictures. [email or web address] Not available 07/01/2024 14:45:12 10/22/2024 10/22/2024 We completed your Medicare Wellness exam today. This was an opportunity to assess your overall well being including your ability to care for yourself, your mobility, memory, mental health, as well as your safety. With advancing age, it is important to assign someone in your life as your Health Care Proxy (HCP). This person should know what is important to you and what your wishes are for medical procedures if you cannot communicate your wishes yourself (severe illness, unconsciousness) . We discussed having a completed Health Care Proxy form today. In addition, today we started a conversation about your End of Life wishes. These conversations will continue over the years. Please consider reading the book, Being Mortal by Neo Ramirez to help frame future conversations. We discussed the purpose of a MOLST form (Medical Orders for Life Sustaining Treatment) and completed this form if appropriate per your wishes. Vision and Hearing are senses that are critically important as we age. When impaired, they can contribute to memory loss, falls, and make it harder to drive, talk to family and friends, and engage in the world. Please get your vision checked yearly and your hearing checked when you start to notice hearing loss. We discussed approaches to lowering your risk of heart disease and stroke . Your blood pressure . Your cholesterol . We discussed cancer screening you may need as well as vaccines to prevent infections. Colon Cancer : Your risk of colon cancer is . Due for colorectal screening:. If you are not planning to have a colonoscopy please screen with stool cards yearly. Breast Cancer : Breast Cancer Screening (mammography). Next mammogram due: . Cervical Cancer Screening (pap test). Next pap due: . Prostate Cancer : PSA testing for ages 55-69 risks and benefits discussed . Influenza Vaccine : Flu shot yearly. Tetanus Vaccine : Every 10 years. Due: . The following vaccines are available from your pharmacy: Pneumonia Vaccine : PCV20: once after age 65. Shingles Vaccine : 2 shots after age 50. Covid Vaccine : Make sure you have received the most up to date covid vaccine. Your personal health goal for the year is: [email or web address] Not available 10/22/2024 11:50:48 Plan of Treatment Reminders Order Date Submit Date Provider Last Modified By Organization Details Last Modified Time Details Appointments LAB Follow-Up 2024 11:30A M [facility] Lab Not available Not available Not available Follow Up, 2024 01:00P M Nisha Lay MD Not available Not available Not available Follow Up, 2024 12:00P M Nicole Patel MD Not available Not available Not available Lab TSH, serum or plasma [address] [facility], [address] [place] [address], [id number], 06/24/2024 16:13:39 TSH, serum or plasma 2023 025 [facility], [address] [place] [address], [id number], 07/01/2024 14:45:16 Referral None recorded. Procedures None recorded. Surgeries None recorded. Imaging MAMMO, screening , tomosynth esis, bilateral 2023 024 [facility] (Imaging), [address] [place] [address], [id number], 09/02/2024 08:55:47 Medication Orders levothyro xine 75 mcg tablet 2023 024 [facility], [address] [place] [address], [id number], 03/25/2024 15:00:58 rosuvasta tin 5 mg tablet [address] [facility], [address] [place] [address], [id number], 10/22/2024 12:18:29 levothyro xine 75 mcg tablet 2023 [facility], [address] [place] [address], [id number], 07/01/2024 14:45:18 Patient Targets Encounter Date Encounter Id Patient Goals Patient Target Last Modified By Organization Details Last Modified Time She will return 09/26 for PHA Not available 03/30/2024 15:54:26 return in CSRP Not available 10/22/2024 12:22:10 Patient Instructions Encounter Date Encounter Id Patient Instructions Last Modified By Organization Details Last Modified Time 10/22/2024 [id number] Assessment & Chalo n Chronic Back Pain Daily pain managed with hydrocodone and tramadol. Hydrocodone used once to twice daily, tramadol used twice daily or more depending on pain level. Tramadol is first line, hydrocodone used for severe pain. -Enroll in automatic refill program for hydrocodone to prevent delays in refills. -Continue current regimen of hydrocodone and tramadol as needed for pain. Unintentional Weight Loss Lost about 10 pounds over the past year due to decreased appetite. No interest in nutritional supplements like Ensure due to taste. -Consider trial of Alvaro, an unflavored nutritional powder. Memory Concerns Some memory issues noted, but within expected range per memory clinic. -Continue follow-up with Dr. Robin in November. Follow-up in 3 months (January 2025). Not available 10/22/2024 14:42:09 Reason for Referral None Reported. Results Created Date Observation Date Name Description Value Unit Range Abnormal Flag Note LastModifiedBy Organization Detail LastModifiedTime 03/11/2003/11/2024 BASIC METAB OLIC PANEL glucose 101 mg/dL 70-100 high Not Available [address], [address], 03/11/2024 15:29:55 03/11/20 24 03/11/2024 BASIC METAB OLIC PANEL BUN 14 mg/dL 7-18 Not Available [address], [address], 03/11/2024 15:29:55 03/11/20 24 03/11/2024 BASIC METAB OLIC PANEL creatinine 0.7 mg/dL 0.8-1. 3 low Not Available [address], [address], 03/11/2024 15:29:55 03/11/20 24 03/11/2024 BASIC METAB OLIC PANEL B/C 20.0 ratio Not Available [address], [address], 03/11/2024 15:29:55 03/11/20 24 03/11/2024 BASIC METAB OLIC PANEL GFR >=60ML /MIN mL/mi n normal >=60m L/min - Caitlin l or midly reduc ed <60mL /min- Decre ased kidne y funct ion <15mL /min - Kidne y failu re [facility] calcu lates estim ated Glome rular Filtr ation Rate (eGFR ) using the Chron ic Kidne y Disea se Epide miolo gy Colla borat ion (CKD- EPI) Equat ion (Ruby palmer et. al 2020) as recom elliot d by the Natio nal Kidne y Found ation . eGFR is based on age, serum creat inine , and sex. CKD-E PI does not calcu late eGFR by race, does not apply to child gregg (age <18 years ), and shoul d not be used in pregn lyn. Not Available [address], [address], 03/11/2024 15:29:55 03/11/20 24 03/11/2024 BASIC METAB OLIC PANEL sodium 138 mmol/ L 136-14 5 Not Available [address], [address], 03/11/2024 15:29:55 03/11/20 24 03/11/2024 BASIC METAB OLIC PANEL potassium 4.4 mmol/ L 3.5-5. 1 Not Available [address], [address], 03/11/2024 15:29:55 03/11/20 24 03/11/2024 BASIC METAB OLIC PANEL chloride 99 mmol/ L 96-107 Not Available [address], [address], 03/11/2024 15:29:55 03/11/20 24 03/11/2024 BASIC METAB OLIC PANEL anion gap 8.0 5.0-15 .0 Not Available [address], [address], 03/11/2024 15:29:55 03/11/20 24 03/11/2024 BASIC METAB OLIC PANEL CO2 31 mmol/ L 21-32 Not Available [address], [address], 03/11/2024 15:29:55 03/11/20 24 03/11/2024 BASIC METAB OLIC PANEL calcium 8.7 mg/dL 8.5-10 .3 Not Available [address], [address], 03/11/2024 15:29:55 03/11/20 24 03/11/2024 LIPID PANEL cholesterol 148 mg/dL <200 mg/dl Guillermo able 200-2 39 mg/dl Borde rline High >240 mg/dl High Not Available [address], [address], 03/11/2024 15:29:57 03/11/20 24 03/11/2024 LIPID PANEL triglyceride s 81 mg/dL <150 mg/dL Caitlin l 150-1 99 mg/dL Borde rline High 200-4 99 mg/dL High >500 mg/dL Very High Not Available [address], [address], 03/11/2024 15:29:57 03/11/20 24 03/11/2024 LIPID PANEL direct HDL 67 mg/dL <40 mg/dl - Major Risk for CHD >60 mg/dl - Negat roel Risk for CHD Not Available [address], [address], 03/11/2024 15:29:57 03/11/20 24 03/11/2024 DIREC T LDL direct LDL 61 mg/dL RISK CATEG ORY LDL GOAL _ CHD or CHD Risk Equiv alent s <100 mg/dl (10-y ear risk >20%) 2+ Risk Facto rs <130 mg/dl (10-y ear risk <= 20%) 0-1 Risk Facto r? <160 mg/dl ? Almos t all peopl e with 0-1 risk facto r have a 10 year risk <10%, thus 10 year risk asses ment in peopl e with 0-1 risk facto r is not myron davis. Not Available [address], [address], 03/11/2024 15:29:58 03/11/20 24 03/11/2024 TSH TSH 0.25 uIU/m L 0.50-6 .00 low The Ameri can Colle ge of Endoc rinol ogy and Ameri can Thyro id Assoc iatio n recom mend goal TSH value s betwe en 0.4-4 .0 mIU/m L. Not Available [address], [address], 03/11/2024 16:07:37 06/24/20 24 06/24/2024 CBC WBC 6.18 K/? ? ?L 3.98-1 0.04 Not Available [address], [address], 06/24/2024 15:37:32 06/24/20 24 06/24/2024 CBC RBC 3.99 M/? ? ?L 3.93-5 .22 Not Available [address], [address], 06/24/2024 15:37:32 06/24/20 24 06/24/2024 CBC HGB 12.9 g/dL 11.2-1 5.7 Not Available [address], [address], 06/24/2024 15:37:32 06/24/20 24 06/24/2024 CBC HCT 38.2 % 34.1-4 4.9 Not Available [address], [address], 06/24/2024 15:37:32 06/24/20 24 06/24/2024 CBC MCV 95.7 fL 79.4-9 4.8 high Not Available [address], [address], 06/24/2024 15:37:32 06/24/20 24 06/24/2024 CBC MCH 32.3 pg 25.6-3 2.2 high Not Available [address], [address], 06/24/2024 15:37:32 06/24/20 24 06/24/2024 CBC MCHC 33.8 g/dL 32.2-3 5.5 Not Available [address], [address], 06/24/2024 15:37:32 06/24/20 24 06/24/2024 CBC plt 265 K/? ? ?L 182-36 9 Not Available [address], [address], 06/24/2024 15:37:32 06/24/20 24 06/24/2024 CBC MPV 10.7 fL 9.4-12 .3 Not Available [address], [address], 06/24/2024 15:37:32 06/24/20 24 06/24/2024 CBC neut% 70.6 % 34.0-7 1.1 Not Available [address], [address], 06/24/2024 15:37:32 06/24/20 24 06/24/2024 CBC neut# 4.36 1.56-6 .13 Not Available [address], [address], 06/24/2024 15:37:32 06/24/20 24 06/24/2024 CBC lymph % 18.1 % 19.3-5 1.7 low Not Available [address], [address], 06/24/2024 15:37:32 06/24/20 24 06/24/2024 CBC lymph # 1.12 K/? ? ?L 1.18-3 .74 low Not Available [address], [address], 06/24/2024 15:37:32 06/24/20 24 06/24/2024 CBC mono% 8.1 % 4.7-12 .5 Not Available [address], [address], 06/24/2024 15:37:32 06/24/20 24 06/24/2024 CBC mono# 0.50 0.24-0 .56 Not Available [address], [address], 06/24/2024 15:37:32 06/24/20 24 06/24/2024 CBC eo% 2.1 % 0.7-5. 8 Not Available [address], [address], 06/24/2024 15:37:32 06/24/20 24 06/24/2024 CBC eo# 0.13 0.04-0 .36 Not Available [address], [address], 06/24/2024 15:37:32 08/22/20 24 06/24/2024 CBC baso% 0.8 % 0.1-1. 2 Not Available [address], [address], 06/24/2024 15:37:32 06/24/20 24 06/24/2024 CBC baso# 0.05 0.00-0 .08 Not Available [address], [address], 06/24/2024 15:37:32 06/24/20 24 06/24/2024 CBC RDW-CV 12.4 % 11.7-1 4.4 Not Available [address], [address], 06/24/2024 15:37:32 06/24/20 24 06/24/2024 CBC Ig% 0.300 % 0.000- 1.500 Ig % >0.5 Indic ates possi ble Left Shift Not Available [address], [address], 06/24/2024 15:37:32 06/24/20 24 06/24/2024 CBC Ig# 0.020 0.000- 0.093 Not Available [address], [address], 06/24/2024 15:37:32 06/24/20 24 06/24/2024 CBC NRBC% 0.0 % 0.0-0. 2 Not Available [address], [address], 06/24/2024 15:37:32 06/24/20 24 06/24/2024 CBC NRBC# 0.000 0.000- 0.012 Not Available [address], [address], 06/24/2024 15:37:32 06/24/20 24 06/24/2024 COMP. METAB OLIC PANEL glucose 123 mg/dL 70-100 high Not Available [address], [address], 06/24/2024 15:41:47 06/24/20 24 06/24/2024 COMP. METAB OLIC PANEL BUN 16 mg/dL 7-18 Not Available [address], [address], 06/24/2024 15:41:47 06/24/20 24 06/24/2024 COMP. METAB OLIC PANEL creatinine 0.8 mg/dL 0.8-1. 3 Not Available [address], [address], 06/24/2024 15:41:47 06/24/20 24 06/24/2024 COMP. METAB OLIC PANEL B/C 20.0 ratio Not Available [address], [address], 06/24/2024 15:41:47 06/24/20 24 06/24/2024 COMP. METAB OLIC PANEL GFR >=60ML /MIN mL/mi n normal >=60m L/min - Caitlin l or midly reduc ed <60mL /min- Decre ased kidne y funct ion <15mL /min - Kidne y failu re [facility] calcu lates estim ated Glome rular Filtr ation Rate (eGFR ) using the Chron ic Kidne y Disea se Epide miolo gy Colla borat ion (CKD- EPI) Equat ion (Ruby r et. al 2020) as recom elliot d by the Natio nal Kidne y Found ation . eGFR is based on age, serum creat inine , and sex. CKD-E PI does not calcu late eGFR by race, does not apply to child gregg (age <18 years ), and shoul d not be used in pregn lyn. Not Available [address], [address], 06/24/2024 15:41:47 06/24/20 24 06/24/2024 COMP. METAB OLIC PANEL sodium 135 mmol/ L 136-14 5 low Not Available [address], [address], 06/24/2024 15:41:47 06/24/20 24 06/24/2024 COMP. METAB OLIC PANEL potassium 4.3 mmol/ L 3.5-5. 1 Not Available [address], [address], 06/24/2024 15:41:47 06/24/20 24 06/24/2024 COMP. METAB OLIC PANEL chloride 97 mmol/ L 96-107 Not Available [address], [address], 06/24/2024 15:41:47 06/24/20 24 06/24/2024 COMP. METAB OLIC PANEL anion gap 9.6 5.0-15 .0 Not Available [address], [address], 06/24/2024 15:41:47 06/24/20 24 06/24/2024 COMP. METAB OLIC PANEL CO2 28 mmol/ L 21-32 Not Available [address], [address], 06/24/2024 15:41:47 06/24/20 24 06/24/2024 COMP. METAB OLIC PANEL calcium 9.1 mg/dL 8.5-10 .3 Not Available [address], [address], 06/24/2024 15:41:47 06/24/20 24 06/24/2024 COMP. METAB OLIC PANEL total protein 6.7 g/dL 6.4-8. 2 Not Available [address], [address], 06/24/2024 15:41:47 06/24/20 24 06/24/2024 COMP. METAB OLIC PANEL albumin 3.8 g/dL 3.4-5. 0 Not Available [address], [address], 06/24/2024 15:41:47 06/24/20 24 06/24/2024 COMP. METAB OLIC PANEL globulin 2.9 g/dL Not Available [address], [address], 06/24/2024 15:41:47 06/24/20 24 06/24/2024 COMP. METAB OLIC PANEL A/G 1.3 ratio 0.8-2. 0 Not Available [address], [address], 06/24/2024 15:41:47 06/24/20 24 06/24/2024 COMP. METAB OLIC PANEL total bilirubin 0.50 mg/dL 0.00-1 .00 Not Available [address], [address], 06/24/2024 15:41:47 06/24/20 24 06/24/2024 COMP. METAB OLIC PANEL AST 19 U/L 0-37 Not Available [address], [address], 06/24/2024 15:41:47 06/24/20 24 06/24/2024 COMP. METAB OLIC PANEL ALT 33 U/L 6-63 Not Available [address], [address], 06/24/2024 15:41:47 06/24/20 24 06/24/2024 COMP. METAB OLIC PANEL alk. phos. 67 U/L 50-136 Not Available [address], [address], 06/24/2024 15:41:47 06/24/20 24 06/24/2024 TSH TSH 1.33 uIU/m L 0.50-6 .00 The Ameri can Colle ge of Endoc rinol ogy and Ameri can Thyro id Assoc iatio n recom mend goal TSH value s betwe en 0.4-4 .0 mIU/m L. Not Available [address], [address], 06/24/2024 16:13:39 10/14/20 24 10/14/2024 EITAN TIN ferritin 27 NG/mL 15-200 Not Available [address], [address], 10/14/2024 16:22:49 10/14/20 24 10/15/2024 BASIC METAB OLIC PANEL glucose 78 mg/dL 70-100 Not Available [address], [address], 10/15/2024 14:21:10 10/14/2010/15/2024 BASIC METAB OLIC PANEL BUN 11 mg/dL 7-18 Not Available [address], [address], 10/15/2024 14:21:10 10/14/20 24 10/15/2024 BASIC METAB OLIC PANEL creatinine 0.8 mg/dL 0.8-1. 3 Not Available [address], [address], 10/15/2024 14:21:10 10/14/20 24 10/15/2024 BASIC METAB OLIC PANEL B/C 13.8 ratio Not Available [address], [address], 10/15/2024 14:21:10 10/14/2010/15/2024 BASIC METAB OLIC PANEL GFR >=60ML /MIN mL/mi n normal >=60m L/min - Caitlin l or midly reduc ed <60mL /min- Decre ased kidne y funct ion <15mL /min - Kidne y failu re [facility] calcu lates estim ated Glome rular Filtr ation Rate (eGFR ) using the Chron ic Kidne y Disea se Epide miolo gy Colla borat ion (CKD- EPI) Equat ion (Ruby r et. al 2020) as recom elliot d by the Natio nal Kidne y Found ation . eGFR is based on age, serum creat inine , and sex. CKD-E PI does not calcu late eGFR by race, does not apply to child gregg (age <18 years ), and shoul d not be used in pregn lyn. Not Available [address], [address], 10/15/2024 14:21:10 10/14/20 24 10/15/2024 BASIC METAB OLIC PANEL sodium 138 mmol/ L 136-14 5 Not Available [address], [address], 10/15/2024 14:21:10 10/14/2010/15/2024 BASIC METAB OLIC PANEL potassium 4.7 mmol/ L 3.5-5. 1 Not Available [address], [address], 10/15/2024 14:21:10 10/14/20 24 10/15/2024 BASIC METAB OLIC PANEL chloride 97 mmol/ L 96-107 Not Available [address], [address], 10/15/2024 14:21:10 10/14/2010/15/2024 BASIC METAB OLIC PANEL anion gap 8.8 5.0-15 .0 Not Available [address], [address], 10/15/2024 14:21:10 10/14/20 24 10/15/2024 BASIC METAB OLIC PANEL CO2 32 mmol/ L 21-32 Not Available [address], [address], 10/15/2024 14:21:10 10/14/2010/15/2024 BASIC METAB OLIC PANEL calcium 9.3 mg/dL 8.5-10 .3 Not Available [address], [address], 10/15/2024 14:21:10 10/14/20 24 10/15/2024 LIPID PANEL cholesterol 159 mg/dL <200 mg/dl Guillermo able 200-2 39 mg/dl Borde rline High >240 mg/dl High Not Available [address], [address], 10/15/2024 14:21:11 10/14/20 24 10/15/2024 LIPID PANEL triglyceride s 72 mg/dL <150 mg/dL Caitlin l 150-1 99 mg/dL Borde rline High 200-4 99 mg/dL High >500 mg/dL Very High Not Available [address], [address], 10/15/2024 14:21:11 10/14/20 24 10/15/2024 LIPID PANEL direct HDL 77 mg/dL <40 mg/dl - Major Risk for CHD >60 mg/dl - Negat roel Risk for CHD Not Available [address], [address], 10/15/2024 14:21:11 10/14/20 24 10/15/2024 DIREC T LDL direct LDL 65 mg/dL RISK CATEG ORY LDL GOAL _ CHD or CHD Risk Equiv alent s <100 mg/dl (10-y ear risk >20%) 2+ Risk Facto rs <130 mg/dl (10-y ear risk <= 20%) 0-1 Risk Facto r? <160 mg/dl ? Almos t all peopl e with 0-1 risk facto r have a 10 year risk <10%, thus 10 year risk asses ment in peopl e with 0-1 risk facto r is not neces yran. Not Available [address], [address], 10/15/2024 14:21:12 10/14/20 24 10/15/2024 MAGNE SIUM magnesium 2.4 mg/dL 1.8-2. 4 Not Available [facility] [address], [place], [address], 10/15/2024 14:21:12 04/16/20 24 05/07/2023 LDCT, chest , for lung cance r scree vic No observ ation record ed. BARCODE Not Available 2023 15:27:12 05/10/20 24 05/10/2024 LDCT, chest , for lung cance r scree vic No observ ation record ed. [facility] [address], [place], [address], 07/19/2024 08:14:42 05/12/2005/10/2024 CT, chest No observ ation record ed. [email or web address] [place] [address] [facility] [address] [place] [address] [address], [place], [address], 05/16/2024 13:24:21 08/09/20 24 07/28/2024 MAMMO , preme vic No observ ation record ed. [address] [facility] [address] [place], [address], 10/22/2024 14:42:20 09/20/20 24 09/08/2024 MRI, thora cic spine , w/o contr ast No observ ation record ed. Not Available 2023 14:42:20 09/20/20 24 06/02/2024 MRI, thora cic spine , w/wo contr ast No observ ation record ed. Not Available 2023 14:42:20 10/04/20 24 07/27/2024 XR, lumba r spine No observ ation record ed. [address] [facility], [place], [address], 10/22/2024 14:42:20 10/19/20 24 07/27/2024 XR, spine , scoli osis serie s No observ ation record ed. [address] [facility], [place], [address], 10/22/2024 14:42:20 11/10/19 25 11/10/2024 XR, chest CLINIC AL HISTOR Y: Cough. TECHNI QUE: Fronta l views of the chest obtain ed. The patien t is unable to stand or follow instru ctions . There are relate d limita tions in image qualit y. COMPAR VIV: None. FINDIN GS: The heart is normal in size and config uratio n.Ther e is no hilar or medias tinal enlarg ement. There is no focal lung consol idatio n or infilt rate. There is mild left base atelec tasis. The bony thorax is intact . IMPRES KAY: No acute diseas e. Readin g Physic rossana: Sadaf Nieves ms [facility] ([facility]aging) [address], [place], [address], 11/10/2024 16:39:38 Result Notes None recorded. Problems Name Problem SNOMED Code Status Onset Date Resolution Date Notes Provider Name and Address Organization Details Recorded Time Colitis 59818684 Active 2016 Small bowel Nicole Patel MD [address] [place] [address] [place], [address], [facility] 12:16:41 Hypothyroi dism 14441689 Active 2016 Nicole Patel MD [address] [place], [place] [address] [place], [address], [facility] 11:52:44 Essential hypertensi on 29350289 Active 2016 Nicole Patel MD [address] [place] [address] [place], [address], [facility] 11:52:56 Low back pain 443402638 Active 2017 recent cortiosone 09/21 helpful PSS Nicole Patel MD [address] [place], [place] [address], [address], [facility] 11:29:26 Restless legs 49814335 Active 2017 Nicole Patel MD [address] [place], [address], [facility] 11:10:38 Inflammati on of sacroiliac joint 32304840 Active 2017 On CSRP. Nicole Patel MD [address] [place] [address] [place], [address], [facility] 06:03:48 Fibromyalg ia 628892575 Active 2018 Chronic fatigue Nicole Patel MD [address] [place] [address] [place], [address], [facility] 07:40:03 Tobacco dependence in remission 838085809 Active 2021 Nicole Patel MD [address] [place] [address] [place], [address], [facility] 18:12:08 Memory impairment 891053694 Active 2022 Nicole Patel MD [address] [place] [address] [place], [address], [facility] 17:12:35 Hyperlipid emia 67239264 Active 2022 Nicole Patel MD [address] [place] [address] [place], [address], [facility] 17:48:28 Problem Notes None recorded. Procedures Surgical History Date Name Laterality Status Provider Name and Address Organization Details Recorded Time Medicare Wellness Visit completed RADHA Antoine [facility] 10/22/2024 11:50:48 024 Cardiovascular disease risk reduction counseling completed Nicole Patel MD [address] [place] [address] [place], [address], [facility] 10/22/2024 14:42:43 024 fluoroscopy completed Kamla Rosenbaum RN [facility] 12/01/2024 11:26:49 023 Medicare Wellness Visit completed RADHA Antoine [facility] [facility] 09/12/2023 08:50:49 023 Cardiovascular disease risk reduction counseling completed Nicole Patel MD [address] [place] [address], [id number], [facility] 09/13/2023 17:49:02 023 Advanced Care Planning completed Jennifer Milton [facility] 09/12/2023 08:55:41 023 Post hospital/SNF follow-up/Transit ional Care completed Jennifer Milton [facility] 06/17/2023 09:58:40 023 Knee Replacement completed Nicole Patel MD [address] [place] [address], [phone], [facility] 06/17/2023 11:18:36 022 Medicare Wellness Visit completed Jennifer Milton [facility] 08/14/2022 16:21:29 022 Alcohol use screening completed Jennifer Milton [facility] 08/14/2022 16:21:29 022 Cardiovascular disease risk reduction counseling completed Jennifer Milton [facility] 08/14/2022 16:21:29 022 Smoking cessation counseling cancelled Jennifer Milton [facility] 01/23/2022 15:23:10 021 Smoking cessation counseling completed Jennifer Milton [facility] 08/02/2021 10:09:58 021 Medicare Wellness Visit completed Jennifer Milton [facility] 08/02/2021 10:09:26 021 Alcohol use screening completed Jennifer Milton [facility] 08/02/2021 10:09:26 021 Cardiovascular disease risk reduction counseling completed Jennifer Milton [facility] 08/02/2021 10:09:26 021 Smoking cessation counseling completed Jennifer Milton [facility] 02/09/2021 09:24:36 021 Smoking cessation counseling completed Jennifer Milton [facility] 11/17/2020 10:39:18 020 Smoking cessation counseling completed Jennifer Milton [facility] 07/21/2020 08:28:08 020 excision of lumbar intervertebral disc completed Nicole Patel MD [address] [place] [address], [phone], [facility] 08/02/2021 11:03:17 020 Smoking cessation counseling completed Rosa Blum [facility] 02/15/2020 10:33:28 020 Medicare Wellness Visit completed Jennifer Milton [facility] 11/18/2019 10:36:03 019 Smoking cessation counseling completed Jennifer Milton [facility] 08/30/2019 11:11:26 019 Smoking cessation counseling completed Jennifer Milton [facility] 05/14/2019 12:01:43 019 Carbon Monoxide Testing completed Jennifer Milton [facility] 05/14/2019 12:01:43 018 [facility] 09:48:04 018 [facility] 09:47:26 018 Smoking cessation counseling completed Taylor Alvarez [facility] 07/01/2018 13:30:10 018 Smoking cessation counseling completed Pham Lobo MA [facility] 06/22/2018 10:24:01 018 Smoking cessation counseling completed Sydney García NP [address] [place] [address], [phone], [facility] 05/21/2018 10:28:14 018 Carbon Monoxide Testing completed Sydney García NP [address] [place] [address], [phone], [facility] 05/21/2018 10:28:14 018 Smoking cessation counseling completed Jennifer Milton [facility] 04/28/2018 10:52:26 018 Medicare Wellness Visit completed Jennifer Milton [facility] 04/28/2018 10:48:34 018 Medicare Risk for Falls Screen completed Jennifer Milton [facility] 04/28/2018 11:04:12 018 Advanced Care Planning completed Jennifer Milton [facility] 04/28/2018 10:52:18 018 Smoking cessation counseling completed Lani Kaplan [employer] [facility] 02/10/2018 13:27:32 018 Carbon Monoxide Testing completed Lani Kaplan [employer] [facility] 02/10/2018 13:27:32 018 Smoking cessation counseling completed Cherrie Arceo [employer] [facility] 11/25/2017 09:45:09 018 Carbon Monoxide Testing completed Cherrie Arceo [employer] [facility] 11/25/2017 09:45:09 017 Smoking cessation counseling completed Cherrie Arceo LPN [facility] 08/28/2017 10:31:27 017 Carbon Monoxide Testing completed Cherrie Arceo LPN [facility] 08/28/2017 10:31:27 017 Smoking cessation counseling completed Layla Avery [facility] 02/24/2017 10:07:33 017 Carbon Monoxide Testing completed Layla Avery [facility] 02/24/2017 10:11:15 Imaging Results Imaging Date Name Status LastModified by Organiz ation Details LastModified Time 05/07/2023 LDCT, chest, for lung cancer screening completed [facility] Information not available 04/16/2024 15:27:12 05/10/2024 LDCT, chest, for lung cancer screening completed [facility] [address], [place], [address], 07/19/2024 08:14:42 05/10/2024 CT, chest completed [email or web address] [place] [address] [facility] [address] [place] [address] [address], [place], [address], 05/16/2024 13:24:21 07/28/2024 MAMMO, screening completed [email or web address] [facility] [address] [place] [address] [place], [address], 10/22/2024 14:42:20 09/08/2024 [facility], thoracic [facility] w[facility]o [facility] 10/22/2024 14:42:20 06/02/2024 MRI, thoracic spine, w/wo contrast completed Information not available 10/22/2024 14:42:20 07/27/2024 XR, lumbar spine completed [address] [place], [address], 10/22/2024 14:42:20 07/27/2024 XR, spine, scoliosis series completed [address] [place], [address], 10/22/2024 14:42:20 11/10/2024 XR, chest completed [facility] [address] [place], [address], 11/10/2024 16:39:38 Procedure Notes None recorded. Medical Equipment None Reported. Allergies Allergen ID Allergen Name Allergen Category Reaction Reaction Severity Criticality Documentation Date Start Date Code Code System Note Provider Name and Address Organization Details Recorded Time [id number] Substance with sulfonami de structure and antibacte rial mechanism of action (substanc e) medicatio n Not available Not available Not available 02/24/2017 [id number] SNOMED Layla dior [place] - [facility] 10:00:31 [id number] Celebrex medicatio n Not available Not available Not available 02/24/2017 72794 7 RxNorm Layla dior, [facility] 7 10:00:36 [id number] Flagyl medicatio n Not available Not available Not available 02/24/2017 6 RxNorm Layla dior, [facility] 7 10:00:40 [id number] Levaquin medicatio n nausea moderate Not available 11/18/2019 26316 2 RxNorm Jennifer Melissatgenha user, RMA null, [facility] 0 10:42:24 [id number] colchicin e medicatio n nausea Not available [facility] 01/28/2022 2683 RxNorm Nicole Patel MD [address] [place], [place] [address] [place], [phone], [facility] 2 18:15:59 [id number] Dilaudid medicatio n confusion severe Not available 09/12/2023 30852 3 RxNorm Jennifer Torrestgenha user, RMA ovi, [facility] 3 10:19:13 [id number] baclofen medicatio n arthralgi a (joint pain) Not available low 09/09/2024 1292 RxNorm Nicole Patel MD [address] [place] [address] [place], [phone], [facility] 4 07:41:24 Medications Name Sig Start Date Stop Date Status Note LastModified by Organization Details LastModified Time losartan 50 mg tablet Take 1 tablet every day by oral route. 11/18 completed Not Available Not Available Not Available amoxicill in 500 mg capsule For Dental procedur es active Not Available Not Available No t Available Miralax 17 gram/dose oral powder Take 17 g every day by oral route as directed . 09/12 completed Not Available Not Available Not Available clonidine HCl 0.1 mg tablet TAKE 3 TABLETS (0.3 MG) BY MOUTH TWICE DAILY 08/15 completed does not take 08/15/22 KRB Not Available Not Available Not Available carvedilo l 6.25 mg tablet 06/17 completed does not take 06/17/23 KRB Not Available Not Available Not Available prednison e 10 mg tablet Take 1 tablet every day by oral route. active Not Available Not Available No t Available Dilaudid 2 mg tablet Take 1-2 tablets q 4 hours PRN severe pain 03/08 completed Per hospital d/c- 02/18/23- CT Not Available Not Available Not Available doxycycli ne hyclate 100 mg capsule Take 1 capsule twice a day by oral route for 7 days. 07/26 completed Stopped 07/24/18 DO Not Available Not Available Not Available carvedilo l 12.5 mg tablet twice a day active Not Available Not Available No t Available donepezil 5 mg tablet 06/17 completed does not take 06/17/23 KRB Not Available Not Available Not Available tizanidin e 2 mg tablet 11/17 completed does not take 0 KRB Not Available Not Available Not Available atorvasta tin 10 mg tablet 02/11 completed does not take 02/11/23 KRB Not Available Not Available Not Available lisinopri l 20 mg-hydroc hlorothia zide 12.5 mg tablet Take 1 tablet every day by oral route. 06/07 completed Not Available Not Available Not Available azithromy peggy 250 mg tablet 08/02 completed Not Available Not Available Not Available chlorzoxa zone 500 mg tablet TAKE 1 TABLET BY MOUTH 3 TIMES A DAY active Not Available Not Available No t Available hydrocodo ne 5 mg-acetam inophen 325 mg tablet TAKE 1 TABLET BY MOUTH EVERY 12 HOURS FOR 28 DAYS 2024 active Not Available Not Available Not Avai lable senna 8.6 mg tablet Take 1 tablet every day by oral route as needed. 06/17 completed Not Available Not Available Not Available prochlorp erazine maleate 5 mg tablet TAKE 1 TABLET BY MOUTH THREE TIMES A DAY 01/04 completed takes 10 mg prn 0 KRB Not Available Not Available Not Available donepezil 10 mg tablet active Not Available Not Available Not Available meloxicam 15 mg tablet 05/14 completed Not Available Not Available Not Available lisinopri l 20 mg tablet Take 1 tablet every day by oral route. 06/05 completed Not Available Not Available Not Available prednison e 20 mg tablet Take 3 tablets every day by oral route for 3 days. 07/01 completed Not Available Not Available Not Available clonidine HCl 0.3 mg tablet Take 1 tablet twice a day by oral route. 03/05 completed Not Available Not Available Not Available gabapenti n 400 mg capsule 06/17 completed Not Available Not Available Not Available diphenoxy late-atro pine 2.5 mg-0.025 mg tablet 03/25 completed Not Available Not Available Not Available fexofenad ine 180 mg tablet 01/24 completed does not take 01/24/22 KRB Not Available Not Available Not Available amlodipin e 5 mg tablet Take 1 tablet every day by oral route. active Not Available Not Available No t Available prochlorp erazine maleate 10 mg tablet active Not Available Not Available Not Available omeprazol e 40 mg capsule,d elayed release TAKE 1 CAPSULE BY MOUTH EVERY DAY 30 MINUTES PRIOR TO MORNING MEAL 90 active Not Available Not Available No t Available Nicotrol 10 mg inhalatio n cartridge Inhale 1 cartridg e every 3 hours by inhalati on route. 11/25 completed Not Available Not Available Not Available tramadol 50 mg tablet TAKE 1 TABLET BY MOUTH 4 TIMES A DAY FOR 28 DAYS 2024 active Not Available Not Available Not Avai lable triamcino lone acetonide 0.1 % topical cream 08/02 completed does not use 08/02/21 KRB Not Available Not Available Not Available levothyro xine 75 mcg tablet Take 1 tablet every day by oral route. active Not Available Not Available No t Available ciclopiro x 8 % topical solution 11/25 completed Not Available Not Available Not Available levothyro xine 100 mcg tablet TAKE 1 TABLET BY MOUTH DAILY IN THE MORNING ON AN EMPTY STOMACH - needs labs for further refill 10/09 completed Not Available Not Available Not Available levothyro xine 88 mcg tablet Take 1 tablet every day by oral route. 03/25 completed Not Available Not Available Not Available Nicoderm CQ 14 mg/24 hr daily transderm al patch Apply 1 patch every day by transder mal route. 07/21 completed Not Available Not Available Not Available baclofen 10 mg tablet 09/07 completed no longer taking 09/06/24 Not Available Not Available Not Available cephalexi n 500 mg capsule Take 1 capsule every 6 hours by oral route for 7 days. 07/01 completed Not Available Not Available Not Available pantopraz ole 40 mg tablet,de layed release 06/17 completed does not take 06/17/23 KRB Not Available Not Available Not Available simvastat in 20 mg tablet 01/04 completed does not take KRB Not Available Not Available Not Available erythromy peggy 5 mg/gram (0.5 %) eye ointment APPLY 1 CM RIBBON INTO THE LOWER CONJUNCT IVAL SAC(S) IN THE AFFECTED EYE(S) BY OPHTHALM IC ROUTE 3 TIMES PER DAY 02/11 completed Not Available Not Available Not Available lisinopri l 10 mg tablet TAKE 1 TABLET BY MOUTH DAILY 05/16 completed Not Available Not Available Not Available Cozaar 100 mg tablet Take 1 tablet every day by oral route. 11/29 completed Not Available Not Available Not Available betametha sone dipropion ate 0.05 % topical cream 01/24 completed Not Available Not Available Not Available betametha sone, augmented 0.05 % topical ointment 05/14 completed Not Available Not Available Not Available gabapenti n 300 mg capsule TAKE 1 CAPSULE BY MOUTH TWICE DAILY active Takes 3 times a day 10/22/24 KRB Not Available Not Available Not Available omeprazol e 20 mg capsule,d elayed release 03/25 completed Not Available Not Available Not Available hydrochlo rothiazid e 25 mg tablet 08/02 completed does not take 08/02/21 KRB Not Available Not Available Not Available gabapenti n 100 mg capsule TAKE 1 CAPSULE BY MOUTH DAILY 10/22 completed does not take 10/22/24 KRB Not Available Not Available Not Available ibuprofen 600 mg tablet TAKE 1 TABLET (600 MG) BY ORAL ROUTE 3 TIMES PER DAY FOR 7 DAYS FOLLOWED BY 1 TABLET 2 TIMES PER DAY FOR 7 DAYS. 10/09 completed per [facility] discharg e 12/04/21. Verified with patient 12/05/21. Not Available Not Available Not Available levofloxa peggy 500 mg tablet 10/08 completed pt not takingh this med 10/08/18 -sk Not Available Not Available Not Available methylpre dnisolone 4 mg tablets in a dose pack USE DIRECTED TAKE PACK DIRECTED 08/02 completed Not Available Not Available Not Available colchicin e 0.6 mg tablet Take 1 tablet every 12 hours by oral route. 01/26 completed does not take bad reaction 01/24/22 KRB Not Available Not Available Not Available lisinopri l 40 mg tablet TAKE 1 TABLET BY MOUTH DAILY 2024 active Not Available Not Available Not Avai lable doxycycli ne hyclate 100 mg tablet Take 1 tablet twice a day by oral route for 10 days. 07/21 completed Not Available Not Available Not Available rosuvasta tin 5 mg tablet Take 1 tablet every day by oral route. 10/22 completed Does not take 10/22/24 KRB Not Available Not Available Not Available rosuvasta tin 10 mg tablet Take 1 tablet every day by oral route at bedtime. active Not Available Not Available No t Available nitazoxan kashmir 500 mg tablet TAKE 1 TABLET BY MOUTH EVERY 12 HOURS WITH FOOD FOR 3 DAYS 06/17 completed Not Available Not Available Not Available oxycodone 5mg PO Q4H PRN pain #30 09/09 completed Not Available Not Available Not Available Vicodin 5/325 takes very rarely has alot left 03/25 completed PRN, as needed for back Not Available Not Available Not Available Compazine 01/26 completed prn Not Available Not Available Not Available Imodium A-D active takes up to 10 tablets daily-GA N 11/21/22 KRB Not Available Not Available Not Available levothyro xine 100 mcg capsule Take 1 capsule every day by oral route. 11/25 completed Not Available Not Available Not Available Xifaxan 550 mg tablet TAKE 1 TABLET BY MOUTH TWICE A DAY 01/24 completed prn 08/02/21 KRB, prn 01/24/22 KRB Not Available Not Available Not Available Rachna Allergy active Not Available Not Available Not Available Fluad Quad 6996-3597 (65yr up)(PF) 60 mcg (15 mcg x 4)/0.5mL IM syringe PHARMACY ADMINIST ERED 11/17 completed Not Available Not Available Not Available aspirin 325 mg capsule Take 1 capsule twice a day by oral route. active Not Available Not Available No t Available Vitals Date Recorded Body height Provider Name an d Address Organization Details Last Updated DateTime 03/25/2024 160.02 cm Amparo Mosleyeduard [facility] 03/25/2024 14:24:12 Date Recorded Body mass index (BMI) Body weight Provider Name and Address Organization Details Last Updated DateTime 03/25/2024 25.2 kg/m2 42988.12 g Amparo Johnson [facility] 03/25/2024 14:24:33 Date Recorded Heart rate Provider Name an d Address Organization Details Last Updated DateTime 03/25/2024 57 /min Amparo Johnson [facility] 03/25/2024 14:31:21 Date Recorded Body height Provider Name an d Address Organization Details Last Updated DateTime 03/30/2024 160.02 cm Kilo Reddy [facility] 03/30/2024 15:14:10 Date Recorded Heart rate Provider Name an d Address Organization Details Last Updated DateTime 03/30/2024 66 /min Kilo Reddy [facility] 03/30/2024 15:19:44 Date Recorded Body height Provider Name an d Address Organization Details Last Updated DateTime 07/01/2024 160.02 cm Amparo Johnson [facility] 07/01/2024 14:16:58 Date Recorded Body mass index (BMI) Provider Name and Address Organization Details Last Updated DateTime 07/01/2024 25 kg/m2 Amparo Johnson [facility] 07/01/2024 14:17:04 Date Recorded Body weight Provider Name an d Address Organization Details Last Updated DateTime 07/01/2024 62541.52 g Amparo Johnson [facility] 07/01/2024 14:17:05 Date Recorded Heart rate Provider Name an d Address Organization Details Last Updated DateTime 07/01/2024 60 /min Amparo Johnson [facility] 07/01/2024 14:22:01 Date Recorded Body height Provider Name an d Address Organization Details Last Updated DateTime 10/22/2024 160.02 cm [facility] 10/22/[facility] 11:49:38 Date Recorded Body mass index (BMI) Body weight Provider Name and Address Organization Details Last Updated DateTime 10/22/2024 24.4 kg/m2 13510.75 g Jennifer Torresrodolfoestela [facility] 10/22/2024 11:49:43 Date Recorded Heart rate Provider Name an d Address Organization Details Last Updated DateTime 10/22/2024 60 /min [facility] 10/22/2024 11:58:41 Date Recorded Systolic blood pressure Diastolic blood pressure Provider Name and Address Organization Details Last Updated DateTime 03/25/2024 119 mm[Hg] 70 mm[Hg] Amparo Johnson [facility] 03/25/2024 14:31:20 Date Recorded Systolic blood pressure Diastolic blood pressure Provider Name and Address Organization Details Last Updated DateTime 03/30/2024 121 mm[Hg] 70 mm[Hg] Kilo Reddy [facility] 03/30/2024 15:19:42 Date Recorded Systolic blood pressure Diastolic blood pressure Provider Name and Address Organization Details Last Updated DateTime 07/01/2024 110 mm[Hg] 70 mm[Hg] Amparo Johnson [facility] 07/01/2024 14:21:44 Date Recorded Systolic blood pressure Diastolic blood pressure Provider Name and Address Organization Details Last Updated DateTime 10/22/2024 118 mm[Hg] 70 mm[Hg] Jennifer Milton [facility] 10/22/2024 12:00:30 Social History Question Answer Notes LastModified by Organizat ion Details LastModified Time Tobacco Smoking Status Former Smoker last smoked November 2021 Nicole Patel MD [address] [place] [address], [phone], [facility] 01/24/2022 12:29:40 What Is Your Level Of Alcohol Consumption? Occasional 2-3 Q Week Information not available 02/24/2017 Do You Wear A Helmet When Biking? No N/A Information not available 11/18/2019 What Is Your Level Of Caffeine Consumption? Moderate Coffee Information not available 11/18/2019 Are You Currently Employed? No Information not available 08/15/2022 What Type Of Diet Are You Following? REGULAR Information not available 11/18/2019 Which Illicit Or Recreational Drugs Have You Used? Denies Information not available 02/24/2017 Do You Or Have You Ever Used E-cigarettes Or Vape? Never Used Electronic Cigarettes Information not available 11/18/2019 What Is The Highest Grade Or Level Of School You Have Completed Or The Highest Degree You Have Received? 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 1-5yearssinc elastcigaret te Information not available 09/12/2023 Are There Any Guns Present In Your Home? Yes Secured Information not available 11/18/2019 Do You Use Insect Repellent Routinely? Yes Information not available 08/02/2021 Live Alone Or With Others? With Others Information not available 02/24/2017 CSRP - Narcotics No Hydrocodone/Ac e 5-325 Mg Dx- M46.1 Sacroiliitis PT. ON REGISTRY ONLY [email or web address] Information not available 05/27/2022 CSRP Contract Signed And Discussed Yes 01/05/2019 Group- 2 (DS ) [email or web address] Information not available 07/24/2018 Does The Patient Have Difficulty Speaking Andorran? No Information not available 02/24/2017 Does The Patient Have Difficulty Reading Andorran? No Information not available 02/24/2017 Patient Has Health Care Proxy Signed And In Chart Yes [email or web address] Information not available 11/18/2019 Marital Status Aleksey Negron 1984 Informat ion not available 02/24/2017 Mosquito Repellent Used Routinely Yes Information not available 11/18/2019 What Was The Date Of Your Most Recent Tobacco Screening? 10/22/2024 Information not available 10/22/2024 How Many Children Do You Have? 3 Justice -45, Yamile, Son Jose - 16 Yo Giselle - 41 Rison , 3 Boys Gildardo -34 [address] ,[facility] , [place] , Born At 28 Weeks, 12/10/16, Thuan And Cas Information not available 08/02/2021 What Is Your Current Pack Years? 30ormorepack years Information not available 02/24/2017 What Is Your Relationship Status? Information not available 08/02/2021 Do You Use Your Seat Belt Or Car Seat Routinely? Yes Information not available 08/02/2021 Seat Belts Used Routinely Yes Information not available 02/24/2017 Smoke Alarm In Home Yes CO Monitor Information not available 02/24/2017 Do You Have Smoke And Carbon Monoxide Detectors In Your Home? Yes Information not available 08/02/2021 Are You Passively Exposed To Smoke? No Information not available 08/15/2022 Do You Or Have You Ever Used Smokeless Tobacco? Never Used Smokeless Tobacco Information not available 11/18/2019 How Much Tobacco Do You Smoke? 0.5 PPD Information not available 08/30/2019 General Stress Level Medium Information not available 11/18/2019 Do You Use Sunscreen Routinely? Yes Information not available 11/18/2019 Do You Or Have You Ever Used Any Other Forms Of Tobacco Or Nicotine? No Information not available 09/12/2023 Sex: Female Functional Status Question Answer Note LastModified by Organizat ion Details LastModified Time What is your exercise level? Occasional Information not available 08/02/2021 Mental Status None recorded. Family History Relationship Description Onset Age of this Age Resolved Age Notes LastModified by Organization Details LastModified Time Mother Unrelated 77 heart failur e Not available 01/24/2022 12:44:29 Father Unrelated 90 [place] Not available 01/24/2022 12:44:50 Brother Unrelated 65 drugs and EtOH Not available 01/24/2022 12:52:18 Medical History Condition Response Alzheimers Dementia Y Hypothyroid Y Hypertension Y Gynecological History Statement/Question Response HPV N History of Abnormal Pap N LMP Approximate Obstetrics History GPAL:G 0 P 0 0 0 0 Immunizations Vaccine Type Date Status Note Provider Nam e and Address Organization Details Recorded Time pneumococcal polysaccharide PPV23 8 completed Not Available [facility] 11/20/2019 02:22:33 Influenza, high-dose, trivalent, PF 8 completed Not Available [facility] 11/20/2019 02:28:50 Influenza, high-dose, trivalent, PF 5 completed Not Available [facility] 06/23/2020 11:18:51 pneumococcal polysaccharide PPV23 2 completed Not Available [facility] 06/23/2020 11:18:51 Pneumococcal conjugate PCV 13 5 completed Not Available [facility] 06/23/2020 11:18:51 Tdap 3 completed Not Available [facility] 06/23/2020 11:18:51 zoster live 2 completed Not Available [facility] 06/23/2020 11:18:51 influenza, unspecified formulation 6 completed Not Available [facility] 06/23/2020 11:18:51 influenza, unspecified formulation 7 completed Not Available [facility] 06/23/2020 11:18:51 Influenza, high-dose, trivalent, PF 9 completed Not Available [facility] 11/20/2019 02:29:22 Influenza, high-dose, quadrivalent, PF 1 completed Nicole Patel MD [address] [place] [address], [phone] [facility] [place] 11:22:43 Influenza, split virus, quadrivalent, preservative 0 completed Jayne Miller CMA [facility], [facility] 09/22/2020 12:10:00 Influenza, high-dose, quadrivalent, PF 2 completed Nicole Patel MD [address] [place] [address], [phone], [facility]15/[place]22 11:03:03 COVID-19, mRNA, LNP-S, PF, 30 mcg/0.3 mL dose 1 completed Jennifer Bettgenhauser, RMA null, [facility] 10/22/2024 11:54:43 COVID-19, mRNA, LNP-S, PF, 30 mcg/0.3 mL dose 1 completed Jennifer Bettgenhauser, RMA null, [facility] 10/22/2024 11:54:43 COVID-19, mRNA, LNP-S, PF, 30 mcg/0.3 mL dose 1 completed Aggie Elliott, RMA null, [facility] 09/05/2021 14:50:47 zoster recombinant 3 completed Jennifer Bettgenhauser, RMA null, [facility] 10/22/2024 11:54:43 zoster recombinant 4 completed [facility] 11:54:43 Influenza, adjuvanted, quadrivalent, PF 3 completed Jennifer Bettgenhauser, RMA null, [facility] 10/22/2024 11:54:43 Influenza, adjuvanted, quadrivalent, PF 0 completed Jennifer Bettgenhauser, RMA null, [facility] 10/22/2024 11:54:43 COVID-19, mRNA, LNP-S, PF, 30 mcg/0.3 mL dose 1 completed Jennifer Bettgenhauser, RMA null, [facility] 10/22/2024 11:54:43 Influenza, high-dose, trivalent, PF 4 completed Jennifer Bettgenhauser, RMA null, [facility] 10/22/2024 11:54:43 Influenza, split virus, quadrivalent, PF 7 completed Jennifer Bettgenhauser, RMA null, [facility] 10/22/2024 11:54:43 Past Encounters Encounter ID Performer Location Encounter Start Date Encounter Closed Date Diagnosis/Indication Diagnosis SNOMED-CT Code Diagnosis ICD10 Code Diagnosis Note [id number] Nicole Patel MD FP, [facility], OFFICE [address] [place] [phone] 02/24/2017 09:44:27 02/24/2017 11:24:24 Cigarette smoker 79250784 F17.210 not ready at this time Tobacco user 112984060 Z 72.0 Low back pain 139975176 M54.5 tramadol and gabapentin Screening for malignant neoplasm of lung 010855684 Z12.2 Screening for disorder 278170246 Z11.59 Colitis 62919010 K52.9 Hypothyroidism 72800323 E03.9 well controlled Essential hypertension 41914582 I10 well controlled [id number] Nicole Patel MD , [facility], OFFICE [address] [place] [address] 08/28/2017 09:54:15 08/28/2017 11:21:54 Essential hypertension 93336859 I10 well controlled Hypothyroidism 01594279 E03.9 well controlled Screening for disorder 626391429 Z11.59 Low back pain 089868002 M54.5 tramadol and gabapentin Cigarette smoker 3530582 7 F17.210 Tobacco user 014759249 Z 72.0 [id number] Nicole Patel MD , [facility], OFFICE [address] [place] [id number] 6 11/25/2017 09:21:49 11/25/2017 10:12:10 Low back pain 582988561 M54.5 tramadol and gabapentin Cigarette smoker 1301862 7 F17.210 Hypothyroidism 67511180 E03.9 well controlled [id number] Nicole Patel MD , [facility], OFFICE [address] [place] [phone] 6 02/10/2018 13:14:24 02/10/2018 16:53:00 Cigarette smoker 98417546 F17.210 down to 6 a day Tobacco user 929604760 Z 72.0 Chronic pain 09915922 R5 2 Opioid dependence 562717 00 F11.20 Active or passive immunization 587828811 Z23 Colitis 36630636 K52.9 Essential hypertension 81054747 I10 well controlled Hypothyroidism 67436643 E03.9 well controlled [id number] Mireya Claudio , [facility], OFFICE [address] [place] [id number] 6 03/25/2018 16:02:02 03/25/2018 17:32:12 Lyme disease 74431932 A69.20 Plan as below. [id number] Nicole Patel MD , [facility], OFFICE [address] [place] [phone] 6 04/28/2018 10:43:53 04/28/2018 13:48:38 Adult health examination 361774334 Z00.00 see Risk Assessment and Lifestyle Change Counseling section above Depression screening 171 406761 Z13.89 depression screening tool administer ed, entered into emr, scored and discussed, time greater than 7.5 minutes Smoker 57033999 F17.210 Benign ess ential hypertension 2919226 I10 Blood pressure at goal Cigarette smoker 2598000 7 F17.210 down to 6 a day Tobacco user 368298184 Z 72.0 Chronic pain 48490067 R5 2 Low back pain 533411755 M54.5 tramadol and gabapentin [id number] Nicole Patel MD , [facility], OFFICE [address] [place] [id number] 6 05/21/2018 09:39:37 05/21/2018 13:09:18 Screening for malignant neoplasm of cervix 033112937 Z12.4 Cigarette smoker 9917658 7 F17.210 Tobacco user 593978373 Z 72.0 Scab of skin 386107450 L 98.8 -reassuran ce [id number] Noble Garza MD , [facility], OFFICE [address] [place] [address] 6 06/22/2018 10:16:18 06/22/2018 10:48:15 Cigarette smoker 97571032 F17.210 declines to discuss smoking with me. Tobacco user 083998208 Z 72.0 Toxic reac tion to hornets, wasps and bees 438217971 T63.451A Large local reaction to bee sting vs cellulitis . Given that the extent of involvemen t is far greater than 10cm (the typical area of involvemen t in a LLR per UTD), cellulitis seems likely. I marked borders and suggested she could monitor for 24 hours prior to taking Keflex. If continuing to expand, or if significan tly worse in the interim, start abx. Short course of prednisone to help with swelling also. Follow up if needed. [id number] Noble Garza MD , [facility], [address] [place] [address] 07/01/2018 13:28:13 07/01/2018 14:00:25 Cigarette smoker 21684249 F17.210 Working on tapering. Using the patch.Disc ussed the health risks of smoking and the benefits of quitting. Discussed support group and outreach by Katheryn Bailey. Tobacco user 885851297 Z 72.0 Cellulitis of upper limb 153804549 L03.119 Possible mild recurrent cellulitis .Rec'd topical antibiotic therapy and warm compresses , monitor for 24-48 hours. For any worsening or no improvemen t, start doxycyclin e x 7 days. Screening for disorder 509862596 Z13.89 [id number] Nicole Patel MD , [facility], [address] [place] [address] 07/24/2018 09:29:48 07/24/2018 10:41:31 Cigarette smoker 99349371 F17.210 down to 6 a day Tobacco user 267300427 Z 72.0 Active or passive immunization 171375824 Z23 Low back pain 554103328 M54.5 tramadol and gabapentin Chronic pain 34033095 R5 2 Inflammati on of sacroiliac joint 44031890 M46.1 Started on CSRP.Will try hydrocodon e 5 mg, 45 pills every 3 months. Colitis 68039830 K52.9 She uses Xifaxan when she has a flare. Essential hypertension 19196853 I10 well controlled Hypothyroidism 91384556 E03.9 well controlled [id number] Nicole Patel MD , [facility], [address] [place] [address] 10/08/2018 10:05:44 10/08/2018 16:17:32 Benign essential hypertension 3973407 I10 Blood pressure at goal Chronic pain 99480967 R5 2 Opioid dependence 334098 00 F11.20 Long-term drug therapy 120722446 Z79.899 Fatigue 65714755 R53.83 Low back pain 525216504 M54.5 tramadol and gabapentin On examina tion - a rash 776735712 R21 [id number] Nicole Patel MD , [facility], OFF[address] [place] [address] 01/05/2019 07:29:30 01/05/2019 08:47:11 Chronic pain 45819876 R52 Opioid dependence 152446 00 F11.20 Long-term drug therapy 830237724 Z79.899 Fibromyalgia 225799977 M 79.7 Tobacco de pendence syndrome 05084184 F17.200 Not ready to quit smoking at this time. Essential hypertension 02098492 I10 well controlled Colitis 74329623 K52.9 She uses Xifaxan when she has a flare. Inflammati on of sacroiliac joint 20155117 M46.1 on CSRP.Will try hydrocodon e 5 mg, 45 pills every 3 months. [id number] Nicole Patel MD , [facility], [address] [place] [address] 05/14/2019 11:57:28 05/14/2019 15:21:03 Chronic pain 33651867 R52 Opioid dependence 928357 00 F11.20 Cigarette smoker 2649108 7 F17.210 down to 10 a day not ready to quit at this time Tobacco user 434107078 Z 72.0 does not want to do yearly LDCT at this time Essential hypertension 09548945 I10 not well controlled , inc MEGHNA Fibromyalgia 545155564 M 79.7 cont on gabapentin 400 mg HS Low back pain 486853779 M54.5 tramadol and gabapentin and parafon forte Inflammati on of sacroiliac joint 09878115 M46.1 on CSRP.Will try hydrocodon e 5 mg, 45 pills every 3 months. Hypothyroidism 51987698 E03.9 well controlled Colitis 67841966 K52.9 She uses Xifaxan when she has a flare. [id number] Nicole Patel MD , [facility], [address] [place] [address] 08/30/2019 11:05:37 08/30/2019 11:51:25 Chronic pain 99017885 R52 Opioid dependence 405246 00 F11.20 Cigarette smoker 8437793 7 F17.210 down to 10 a day not ready to quit at this time Tobacco user 906328217 Z 72.0 does not want to do yearly LDCT at this time Long-term drug therapy 453424898 Z79.899 Active or passive immunization 351846459 Z23 Swollen abdomen 58235491 R14.0 [id number] Nicole Patel MD , [facility], OFFICE [address] [place] [address] 11/18/2019 10:33:23 11/18/2019 11:56:07 Adult health examination 031594192 Z00.00 see Risk Assessment and Lifestyle Change Counseling section above Depression screening 171 575165 Z13.89 depression screening tool administer ed, entered into emr, scored and discussed, time greater than 7.5 minutes Chronic pain 04165174 R5 2 Opioid dependence 795827 00 F11.20 Screening mammography 24 526824 Z12.31 Eruption 226946196 R21 will refer to computer systems manager per pt request Essential hypertension 31948544 I10 will inc to 100 mg a day Fibromyalgia 230910596 M 79.7 cont on gabapentin 400 mg HS Hypothyroidism 25897644 E03.9 well controlled Tobacco de pendence syndrome 82865773 F17.200 Not ready to quit smoking at this time. [id number] Nicole Patel MD , [facility], OFFICE [address] [place] [address] 02/15/2020 10:37:59 02/15/2020 13:46:28 Chronic pain 14172662 R52 Opioid dependence 198331 00 F11.20 Cigarette smoker 5815328 7 F17.210 down to 10 a day not ready to quit at this time Tobacco user 866224072 Z 72.0 does not want to do yearly LDCT at this time Essential hypertension 18793452 I10 will inc to 40 mg a day Screening mammography 24 191981 Z12.31 Acute sinusitis 12453498 J01.90 [id number] Nicole Patel MD , [facility], OFFICE [address] [place] [address] 6 07/21/2020 09:21:02 07/24/2020 13:33:25 Chronic pain 17633097 R52 Opioid dependence 558450 00 F11.20 Essential hypertension 01777276 I10 will inc to 40 mg a day Cigarette smoker 9303607 7 F17.210 down to 4-5 a day not ready to quit at this time Tobacco user 819029221 Z 72.0 does not want to do yearly LDCT at this time Screening mammography 24 416399 Z12.31 Smoker 65939630 F17.862 [id number] Nicole Patel MD , [facility], OFFICE [address] [place] [address] 6 11/17/2020 10:56:11 11/17/2020 16:28:18 Chronic pain 83815954 R52 Opioid dependence 028859 00 F11.20 Essential hypertension 72344078 I10 will add amlodipine Cigarette smoker 2353733 7 F17.210 down to 4-5 a day not ready to quit at this time Tobacco user 972186779 Z 72.0 yearly LDCT at this time, waiting for test Screening mammography 24 257111 Z12.31 Smoker 06134647 F17.210 Ex-smoker 2849300 Z87.89 1 [id number] Nicole Patel MD , [facility], OFFICE [address] [place] [address] 6 01/04/2021 12:08:41 01/05/2021 15:24:05 Screening mammography 91580229 Z12.31 Essential hypertension 99502029 I10 [id number] Nicole Patel MD , [facility], OFFICE [address] [place] [address] 6 02/09/2021 11:41:24 02/12/2021 17:35:25 Chronic pain 33583972 R52 Cigarette smoker 2354758 7 F17.210 down to 4-5 a day not ready to quit at this time Tobacco user 444239955 Z 72.0 yearly LDCT , 01/21 Essential hypertension 24858125 I10 elevated BP will inc dose [id number] Nicole Patel MD , [facility], OFFICE [address] [place] [address] 6 08/02/2021 09:52:33 08/03/2021 10:20:01 Adult health examination 770074383 Z00.00 see Risk Assessment and Lifestyle Change Counseling section above Counseling 808759581 Z71 .9 including cardiovasc ular risk reduction counseling Depression screening 171 343217 Z13.31 depression screening tool administer ed, entered into emr, scored and discussed, time greater than 7.5 minutes Screening for alcohol abuse 158616935 Z13.39 Chronic pain 16567743 R5 2 will inc pain meds to 30/m Long-term current use of opiate analgesic drug 3608186480 10769 Z79.891 Essential hypertension 24534382 I10 well controlled Cigarette smoker 4036442 7 F17.210 down to 10 a day ready to quit at this time , working with cardiology Tobacco user 208381819 Z 72.0 yearly LDCT , [place] 01/21 Long-term drug therapy 606776972 Z79.899 Active or passive immunization 851042075 Z23 [id number] Nicole Patel MD , [facility], OFFICE [address] [place] [address] 6 01/24/2022 11:57:42 02/04/2022 09:25:44 Long-term current use of opiate analgesic drug 1917847782 39028 Z79.891 Essential hypertension 08440052 I10 well controlled Pericarditis 6143509 I31 .9 gradually improving Fibromyalgia 420174707 M 79.7 cont on gabapentin 400 mg HS Tobacco de pendence in remission 961107177 F17.201 quit smoking Nov 2021 Opioid dependence 176382 00 F11.20 she cont on tramadol [id number] Marco Workman MD [facility], [address] [address] 05/02/2022 07:41:08 05/02/2022 08:44:12 Pericarditis 5286854 I31.9 Patient has a panoply of symptoms.U nintention al weight loss, weakness, one episode of pericardit is.Her cardiologi st recommende d that she sees a rheumatolo gist to rule out autoimmune disease. Check labs and reassess. Unintentio nal weight loss 239189661 R63.4 Await above work-up.Ean ortega was a heavy smoker.Elza ds to follow-up with pcp on this. [id number] Marco Workman MD [facility], [address] [address] 07/15/2022 14:42:43 07/19/2022 09:46:14 Pericarditis 1482310 I31.9 Patient has a panoply of symptoms.U nintention al weight loss, weakness, one episode of pericardit is.Her cardiologi st jeancarlos d that she sees a rheumatolo gist to rule out autoimmune disease.No rmal inflammato ry markers, anti-histo miky borderline positive, remaining of serology negative.C ould be due to clonidine. Patient is being weaned off clonidine. No evidence of rheumatic autoimmune disease for now.Patien t to contact office if any change in clinical picture. Unintentio nal weight loss 610028781 R63.4 Await above work-up.Ean ortega was a heavy smoker.Nee ds to follow-up with pcp on this.She gained few pounds since last visit. [id number] Nicole Patel MD , [facility], OFF[address] [place] [address] 08/15/2022 09:52:35 08/15/2022 11:26:26 Adult health examination 405265752 Z00.00 see Risk Assessment and Lifestyle Change Counseling section above Depression screening 171 896878 Z13.31 depression screening tool administer ed, entered into emr, scored and discussed, time greater than 7.5 minutes Screening for alcohol abuse 091924469 Z13.39 Essential hypertension 09654443 I10 well controlled at home Active or passive immunization 220518757 Z23 Chronic pain 63928465 R5 2 gabapentin to 400 mg a day , and hydrocodon e 5mg QD and tramadol Hypothyroidism 17508902 E03.9 well controlled [id number] Stephanie Lee MD , [facility], OFF[address] [place] [address] 10/21/2022 14:07:58 10/21/2022 16:12:25 Acute upper respiratory infection 57420994 J06.9 Flu negative, pend COVID. Cold self care measures reviewed and encouraged (fluids, steam inhalation , adequate rest). F/U if symptoms worsen or aren't resolving. Fever 577360362 R50.9 No fever on exam today, advised take temp at home if chills continue Tension-type headache 39 8132867 G44.209 -Discussed rest, hydration, tylenol/ib uprofen-Ad vised proper nutrition- Advised follow up as needed [id number] Nicole Patel MD , [facility], OFFICE [address] [place] [address] 6 11/21/2022 09:22:34 11/21/2022 10:03:28 Active or passive immunization 451624255 Z23 Td:Shingri x:COVID Booster Pain of to e of right foot 3678908036 90033 M79.674 Acute conjunctivitis 537 94481 H10.33 Opioid dependence 339350 00 F11.20 she cont on tramadol and hydrocodon e prn Essential hypertension 41425331 I10 well controlled at home Low back pain 520561788 M54.50 [id number] Tariq Hunter DPM Podiatry, [address] [address] 12/09/2022 10:03:57 12/09/2022 10:52:48 Ingrowing toenail 681317753 L60.0 [id number] Nicole Patel MD , [facility], OFFICE [address] [place] [address] 6 02/11/2023 11:01:49 02/13/2023 10:08:37 Essential hypertension 08283875 I10 well controlled at home , elevated today Active or passive immunization 533833653 Z23 Td: declinesSh ingrix: aware at pharmacyCO VID Booster: declines Memory impairment 045444 006 R41.3 will be starting aricept [id number] Nicole Patel MD , [facility], OFFICE [address] [place] [address] 06/17/2023 10:46:49 06/17/2023 11:25:36 Active or passive immunization 948255978 Z23 Td: declinesSh ingrix: aware at pharmacyCO VID Booster: declines Diarrhea 10390930 R19.7 Fibromyalgia 460821967 M 79.7 cont on gabapentin 400 mg HS Memory impairment 600124 006 R41.3 will be starting aricept [id number] Tariq Hunter DPM Podiatry, [address] [address] 07/18/2023 10:28:23 07/18/2023 11:08:17 Onycholysis 43163713 L60.1 [id number] Nicole Patel MD , [facility], OFF[address] [place] [address] 09/12/2023 10:08:04 09/15/2023 11:20:45 Adult health examination 383710179 Z00.00 see Risk Assessment and Lifestyle Change Counseling section above Depression screening 171 894974 Z13.31 depression screening tool administer ed Screening for alcohol abuse 729846259 Z13.39 Alcohol use screening tool administer ed Active or passive immunization 957089385 Z23 Td: declinesSh ingrix: had 1st doseCOVID Booster: aware at pharmacy-c an't have Advance di rective discussed with patient 358955221 Z71.89 Advanced Care Planning 1. Advanced care planning was discussed for {{less than more than*}} 15 minutes. 2. Participan ts included {{patient patient and family* pa tient's family pat ient's surrogate} } and they were given an opportunit y to decline discussion . 3. Health Care Proxy {{was* was not}} discussed. 4. Patient {{has* has not}} completed Health Care Proxy form. {{It was It was not*}} given to take home. 5. Names(s) relationsh ip(s) of Health Care Proxy: 6. MOL[facility] {{was* was not}} discussed. 7. Patient {{has* has not}} completed MOL[facility] form. 8. Details of discussion : Full code 9. Follow up needed: Chronic pain 88525917 R5 2 gabapentin to 400 mg a day , and hydrocodon e 5mg 1-2 x a day , and tramadol QID Fibromyalgia 716324102 M 79.7 cont on gabapentin 400 mg HS Hypothyroidism 93685512 E03.9 well controlled Memory impairment 249809 006 R41.3 doing well on aricept Gastroesop hageal reflux disease 888348275 K21.9 will be starting PPI Essential hypertension 15767557 I10 well controlled Hyperlipidemia 10034107 E78.5 on Crestor Counseled by member of primary health care team 362159388 Z71.9 Today we discussed ways to reduce your 10-year cardiovasc ular disease risk. Things that decrease risk for cardiovasc ular events include eating a diet high in fiber (fruits and vegetables ) and low in simple carbohydra camryn (bread, rice, pasta, alcohol, potatoes), decreasing processed foods, limiting juice and alcohol, limiting saturated fats (butter, ice cream, and cheeses), and adding regular daily activity. Having blood pressure that is <130/80. Having well controlled cholestero l (LDL and triglyceri nickolas) by eating a healthy diet and taking medication s when necessary. Managing daily stress with meditation or yoga. Depending on your other cardiovasc ular risks your practition er may recommend taking daily aspirin. [id number] Nisha Lay MD Endocrino logy, [address] [address] 10/09/2023 10:07:18 10/09/2023 11:33:11 Hypothyroidism 19983830 E03.9 -levothyro xine 100mcg by mouth once daily, consistent on empty stomach-re view labs via portal Essential hypertension 48866182 I10 -lisinopri l, carvedilol Mixed hyperlipidemia 267 315015 E78.2 -atorvasta tin Alzheimer's disease 2692 9004 G30.9 [id number] Nisha Lay MD Endocrino logy, [address] [address] 03/25/2024 14:16:08 03/26/2024 08:14:59 Hypothyroidism 22093107 E03.9 -current levothyrox ine 88mcg by mouth once daily. -reduce to levothyrox ine 75mcg by mouth once daily Hyperlipidemia 98005708 E78.5 Essential hypertension 85609422 I10 -lisinopri l, carvedilol Mixed hyperlipidemia 267 060996 E78.2 -atorvasta tin Alzheimer's disease 2692 9004 G30.9 [id number] Nicole Patel MD , [facility], OFFICE [address] [place] [address] 03/30/2024 15:09:52 03/30/2024 15:57:59 Hypothyroidism 23709161 E03.9 well controlled Essential hypertension 06260344 I10 well controlled Inflammati on of sacroiliac joint 78854638 M46.1 on CSRP.Will try hydrocodon e 5 mg, 90 pills every 3 months. [id number] Stephanie Lee MD , [facility], OFF[address] [place] [address] 05/21/2024 10:08:49 05/21/2024 18:25:25 Screening mammography 18476173 Z12.31 Patient will schedule Hyperlipidemia 18248760 E78.5 -Continue with medication -increase cardioInfo rmation on HEART HEALTH discussed today: The [place] [employer] ([employer]) recommends at least 150 minutes (2.5 hours) of heart-pump ing physical activity per week. Only about one in five adults and teens get enough exercise to maintain good health. Being more active can help all people think, feel and sleep better and perform daily tasks more easily. Visit the [employer] website for more informatio n below:Copy and paste this website address into your browser for more informatio n. [email or web address] [email or web address] ity-in-adriana lts Essential hypertension [id number] I10 Bp at goal last office visit and at homeGoal under 130 /80 Coronary arteriosclerosis 49983320 I25.10 -reviewed heavy coronary calcium burden- sees cardiology and he said she did not neednuclea r stress test-follo w up w cardiology as discussed [phone] Nisha Lay MD Endocrino logy, [address] [phone] 07/01/2024 14:11:55 07/01/2024 15:08:16 Hypothyroidism 62480150 E03.9 -current levothyrox ine 75mcg by mouth once daily Hyperlipidemia 42308727 E78.5 Essential hypertension 75845464 I10 -lisinopri l, carvedilol Mixed hyperlipidemia 267 270144 E78.2 -atorvasta tin Alzheimer's disease 2692 9004 G30.9 Weight loss 83539895 R63 .4 Dysphagia 60196710 R13.1 0 -mild trouble swallowing sometimes, will see gastroente rology to evaluate esophageal strictures [id number] Nicole Patel MD , [facility], [address] [place] [address] 10/22/2024 11:38:30 10/25/2024 12:58:13 Adult health examination 373711556 Z00.00 see Risk Assessment and Lifestyle Change Counseling section above Depression screening 171 391634 Z13.31 depression screening tool administer ed Screening for alcohol abuse 180130124 Z13.39 Alcohol use screening tool administer ed Active or passive immunization 529548329 Z23 Td: declines Counseled by member of primary health care team [id number] Z71.9 Today we discussed ways to reduce your 10-year cardiovasc ular disease risk. Things that decrease risk for cardiovasc ular events include eating a diet high in fiber (fruits and vegetables ) and low in simple carbohydra camryn (bread, rice, pasta, alcohol, potatoes), decreasing processed foods, limiting juice and alcohol, limiting saturated fats (butter, ice cream, and cheeses), and adding regular daily activity. Having blood pressure that is <130/80. Having well controlled cholestero l (LDL and triglyceri nickolas) by eating a healthy diet and taking medication s when necessary. Managing daily stress with meditation or yoga. Depending on your other cardiovasc ular risks your practition er may recommend taking daily aspirin. Health Concerns Section Related Observation LastModified by Organization Detai ls LastModified Time None Recorded Concern Status LastModified by Organization Details LastModified Time None Recorded Advance Directives Directive None Recorded Payers Encounter Date Sequence Insurance Name Policy Number Policy Stephens Covered Member ID Stephens Member ID Guarantor Name 03/25/2024 1 [place] Ihsan Obrien [id number] Radha Obrien 03/30/2024 1 [place] Ihsan Obrien [id number] Radha Obrien 05/21/2024 1 [place] Ihsan Obrien [id number] Radha Obrien 07/01/2024 1 [place] Ihsan Obrien [id number] Radha Obrien 10/22/2024 1 [place] Ihsan Obrien [id number] Radha Obrien Notes Date Note Type Note Provider Name and Address Organization Details Recorded Time 4 text/html Follow-Up: hypothyroidismFollow-Up: hyperlipidemiaFollow-Up: essential hypertensionissues;labs 5-9-24 sweats come and go and are the same, last 6min and go away, could be a hot flash less intense than the past levothyroxine 88mcg by mouth once daily. consistent empty stomach she sometimes has a lot of energy, energy fades in afternoon and get tired Nisha Lay MD [address] [place] [address], [phone] [facility] [place]25/[place]24 14:52:59 4 text/html 03/30/24 SHe is doing well with her pain meds, tramadol QID and vicodin 1-2 times a dayHer memory is stableHer does a lot for her Follow-Up: hypothyroidismFollow-Up: hyperlipidemiaFollow-Up: essential hypertensionissues;labs 03-11-24 sweats come and go and are the same, last 6min and go away, could be a hot flash less intense than the past levothyroxine 88mcg by mouth once daily. consistent empty stomach she sometimes has a lot of energy, energy fades in afternoon and get tired Nicole Patel MD [address] [place] [address], [phone], [facility] [place]/30/2024 15:55:03 4 text/html 05/21/24 follow up from [facility] Got report from lung cancer saying no lung CA.Did not see the CTDiscussed heavy coronary artery calcificationCADsees Dr jospeh chest pain or sobthey asked about getting a stress test, and he said no nuclear stress test indicatedLDL is 64no regular exercise, bc legs hurtRosuvastatin- has only been taking 5 mg, start updated, cardiology aware10 mg caused too much nausea Retired - in 2020 HTNat goal under 130/80 Stephanie Lee MD [address] [place] [address], [phone], [facility] [place]/21/2024 14:48:09 4 text/html Follow-Up: hypothyroidismFollow-Up: hyperlipidemiaFollow-Up: essential hypertensionissues;has alzheimerslabs 06-24-24 consistent empty stomach-current levothyroxine 75mcg by mouth once daily she lost 7 lb in the last 7 or 8mo not as hungry energy is ok mood great Nisha Lay MD [address] [place] [address], [phone], [facility] [place]/01/2024 14:46:50 4 text/html Risk Assessment and Lifestyle Change Counseling (Medicare)Reported bypatient.Coronary Artery Disease Risk Assessment:No history of peripheral vascular disease, AAA, or carotid disease Safety Risk Assessment:Has grab bars in bathroom; Has rails on steps;History of falls 1-3 in past 12 months; No evidence of abuse/neglect Functional Status:Patient does not have trouble hearing the television or radio when others do not.; Patient does not have to strain or struggle to hear/understand conversations; Patient does not need help with preparing meals, transportation, shopping, taking medicine, managing finances, or other activities of daily living.; Patient does not have visual loss that interferes with daily activities; Does not live alone;Patient was unsteady or takes longer than 30 seconds during the timed get up and go test.;Patient reports 3+ falls in the past 6 months. 10/22/24-[facility] History of Present IllnessThe patient, with a history of chronic back pain, reports daily use of hydrocodone and tramadol for pain management. She describes her pain as variable, necessitating a flexible medication schedule. She takes tramadol first, and if the pain is severe, she adds hydrocodone. She reports recent difficulties with medication refills, leading to periods without pain relief.The patient also reports a decrease in appetite and subsequent weight loss of about ten pounds over the past year. She denies any intentional weight loss efforts. She plans to try a nutritional supplement powder, Alvaro, to help maintain her weight.She also reports some memory issues, which are being monitored by a neurologist.Past Medical History- Shingles vaccination (two doses)- Flu shot (received months ago)Medications- Hydrocodone (twice a day as needed)- Tramadol (twice a day as needed)- Vicodin (once a day)- Amlodipine- Carvedilol- Chlorthalidone- Gabapentin (300 mg three times a day)ResultsLABSTSH: within normal limits (06/24/2024)Assessment & PlanChronic Back PainDaily pain managed with hydrocodone and tramadol. Hydrocodone used once to twice daily, tramadol used twice daily or more depending on pain level. Tramadol is first line, hydrocodone used for severe pain.-Enroll in automatic refill program for hydrocodone to prevent delays in refills.-Continue current regimen of hydrocodone and tramadol as needed for pain.Unintentional Weight LossLost about 10 pounds over the past year due to decreased appetite. No interest in nutritional supplements like Ensure due to taste.-Consider trial of Alvaro, an unflavored nutritional powder.Memory ConcernsSome memory issues noted, but within expected range per memory clinic.-Continue follow-up with Dr. Robin in November.Follow-up in 3 months (January 2025). 09/12/23-PHA She is doing well at this timeGetting US of carotids end [place] is back on stain meds She is doing PT 2x a week , she is using a wheelchair when she goes outAt home she walks aroundSHe does need to sit alotSDevang is not sleeping well at night 08/15/22-Rhonda has been having pericarditis , was in hosp in JanShe did have some CP at that timeWonder if it could be related to COVID vaccineSHe is getting stronger at this time90% better , tired quickly , not as mobileSHlashell quit smoking 11/24 when she came home from the hospital Her BP has been well controlled at homeHaving a lot of back pain , taking tramadol TID , helps someBP elevated in the office, Apparently better at home 08/02/21-Rhonda is working on quitting smoking with her cardiologistShe wants to inc her pain meds to 30/month from monthHer BP is well controlled No concerns 11/18/2019-patient observation assistant Dr. 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 10/22/2024 14:44:50 OBGyn Episode No OBEpisode recorded.
--- OUTSIDE RECORDS SUMMARY | 2024-12-02 18:26 | XMS_ITS | Patient Health Record ---
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 Machine Operator Name Role Phone Roshni SALINAS, Vasyl Primary Care Provider Mehul Potts Jr Unavailable [phone] ALLERGIES Allergen (clinical drug ingredient) Drug/Non Drug Allergy documented on EMR Reaction Allergy Type Onset Date Status colchicine Colchicine Unknown Drug Allergy Activ e Sulfa Unknown Drug Allergy Active metronidazole Flagyl Unknown Drug Allergy Act roel celecoxib Celebrex Unknown Drug Allergy Active REASON FOR REFERRAL No Information MEDICATIONS Medication SIG (Take, Route, Frequency, Duration) Notes Start Date End Date Status Probiotic - 1 capsule Orally once a day Active Compazine 10 MG 1 tablet Orally prn for 30 days Active Lisinopril 40 MG Oral for 90 A ctive Levothyroxine Sodium 100 MCG Oral for 90 Active Levoxyl 100 MCG 1 tablet on an empty stomach in the morning Orally Once a day Active Prilosec 20 MG 1 Orally Once a day for 30 days 07/09/2023 Active Gabapentin 300 MG 1 tablet Orally Twice a day/prn Active Omeprazole 40 MG TAKE 1 CAPSULE BY MOUTH EVERY DAY 30 MINUTES PRIOR TO MORNING MEAL for 90 Active traMADol HCl 50 MG 1 tablet as needed Orally every 6 hrs Active rifAXIMin 550 MG 1 tablet Orally Three times a day for 14 days Intermittent treatment for IBS D. 04/30/2023 Active Vicodin 5-300 MG 1 tablet as needed Orally every 6 hrs Active Diphenoxylate-Atropine 2.5-0.025 MG 1 [id number] as needed for diarrhea Orally Four times a day for 30 days 05/15/2023 Active Prochlorperazine Maleate 10 MG TAKE 1 TABLET BY MOUTH TWICE DAILY for 30 Active Carvedilol 12.5 MG Oral for 90 Active Atorvastatin Calcium 10 MG Oral for 90 Active amLODIPine Besy-Benazepril HCl 2.5-10 MG as directed Orally Active IMMUNIZATIONS Vaccine Route Administration Date Status Comme nts Influenza Unknown 09/16/2018 Administered Influenza Unknown 08/12/2018 Administered Influenza Unknown 08/10/2019 Administered Influenza Unknown 08/03/2020 Administered Influenza Unknown 09/26/2021 Administered Influenza Unknown 09/24/2022 Administered SOCIAL HISTORY Tobacco Use: Social History Observation [...] W/U Status Risk SNOMED Code Notes Problem Irritable bowel syndrome with diarrhea (K58.0) Active confirmed 604462972 Problem Hypertension, unspecified type (I10) Active confirmed 57937951 Problem Irritable bowel syndrome, unspecified type (K58.9) Active confirmed 46863549 Problem Nausea (R11.0) Active confirmed 2300207 07 Problem Gastroesophageal reflux disease without esophagitis (K21.9) Active confirmed 595902184 Problem Colon cancer screening (Z12.11) Active confirmed 975474694 Problem Gastric ulcer (K25.9) Active confirmed Gastric ulcer (158354859) Problem Diarrhea, unspecified type (R19.7) Active confirmed 05895261 Problem 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) Active confirmed 511632449 PLAN OF TREATMENT Pending Test Test Name Order Date STOOL WBC 10/30/2022 OVA & PARASITES (O&P) 10/30/2022 C DIFFICILE RFLX PCR 10/30/2022 CALPROTECTIN, STOOL 10/30/2022 Future Test Test Name Order Date UPPER GI ENDOSCOPY 11/23/2020 COLONOSCOPY 11/23/2020 Insurance Providers Payer Name Payer Address Payer Phone Subscriber Number Group Number Insured Name Patient Relationship to Insured Coverage Start Date Coverage End Date [facility] [address] [place], [place] [id number] [phone] [id number] AMARIS RIGGS Self - patient is the insured MEDICAL (GENERAL) HISTORY Medical History History ICD Code Colonoscopy 01/21, cecal tubu lar adenoma, and normal sigmoid biopsies, optional followup 7 years Upper endoscopy 01/21, gastri c ulcer, followup EGD 04/23, erosive gastritis, and no H. pylori hypothyroidism degenerative joint disease osteoarthritis radio frequency treatments on spine restless leg syndrome hypertension lyme disease Pericarditis December 2021 Surgical History Surgery Date(Month/Year) neck and back surgery inguinal hernia repair section x 1 tubal ligation total left hip 2012 total left knee 2014 back surgery 06/2020 Hospitalization History Reason Date(Month/Year) pericarditis 2021 patient spent 4 days in hospital viral g astritis 06/25
--- OUTSIDE RECORDS SUMMARY | 2024-12-02 18:27 | XMS_ITS ---
Author Organization [facility] Address [address] [place] [address] Care Team Providers Care Supervisor Landscape Name Role Phone Roshni SALINAS, Vasyl Primary [...] D. 04/30/2023 Active Diphenoxylate-Atropine 2.5-0.025 MG 1 [id number] as needed for diarrhea Orally Four times [...] due to Blastocystis species (A07.8) Active confirmed 384993396 VITAL SIGNS BMI 23.24 kg/m2 07/09/2023 Blood pressure systolic 000 mm Hg 07/09/20 23 Blood pressure diastolic 00 mm Hg 023 Height 66 in 07/09/2023 Temperature 97.5 degrees Fahrenheit 07/09/20 23 Weight 144 lbs 07/09/2023 Encounters Encounter Location Date Provider Diagnosis [facility] [address] [place] [address] 07/09/2023 Mehul Burdick Jr Irritable bowel syndrome [...]
== END 2024-12-02 15:29 | disposition home or self-care (01) ==
PROVIDERS: PCP Internal Medicine; Visit Provider Physician Assistant
DX: M54.16 Radiculopathy, lumbar region (principal)
CPT/HCPCS: 99213

== ENCOUNTER → 2024-12-02 14:29 | Outpatient (BNVA) | payer BC, SELFPAY | PROVIDERS: PCP Internal Medicine; Visit Provider Physician Assistant ==

== ENCOUNTER 2025-01-28 11:21 | Outpatient (REF) | payer BC, SELFPAY ==
--- NOTE | ~2025-01-28 | MM_ITS ---
EXAMINATION: DXA BONE DENSITY AXIAL HISTORY: Estrogen deficiency TECHNIQUE: Cloneless Dual energy absorptiometry (DEXA) of the lumbar spine, total right hip, and femoral neck was performed. COMPARISON: There are no prior studies for comparison. FINDINGS: The bone mineral density of the lumbar spine is 1.480 with a T-score of 2.5, and a Z-score of 4.4. This is indicative of normal bone mineral density. The bone mineral density of the right total hip is 0.901 with a T-score of -0.8, and a Z-score of 1.1. This is indicative of normal bone mineral density. The bone mineral density of the right femoral neck is 1.033 with a T-score of 0.0, and a Z-score of 2.0. This is indicative of normal bone mineral density. MM/XR DEXA axial skeleton IMPRESSION: Based on bone mineral density, and according to World Health Organization (WHO) criteria, the diagnosis is consistent with normal bone mineral density. All bone density values are in grams per centimeter squared (g/cm2). Statistically, 68% of repeat scans fall within 1 SD (+/- 0.010 g/cm2 for AP spine L1-L4) and 1 SD (+/- 0.012 g/cm2 for femur total) FRAX is a trademark of the [employer] [place] [facility] [employer], a World Health Organization (WHO) Collaborating Center. Electronically signed by: Billy Garcia MD 01/28/2025 11:58 AM EDT
== END 2025-01-28 11:22 | disposition home or self-care (01) ==
LOC: HO.MAMMO 11:21
PROVIDERS: PCP Internal Medicine; Visit Provider Emergency Medicine
DX: Z13.820 Encounter for screening for osteoporosis (principal); M85.80 Other specified disorders of bone density and structure, unspecified site; E28.39 Other primary ovarian failure
CPT/HCPCS: 77080

== ENCOUNTER → 2025-01-28 11:30 | Outpatient (BNV) | payer BC, SELFPAY | PROVIDERS: PCP Internal Medicine; Visit Provider Radiology Diagnostic Radiology | DX: E28.39 Other primary ovarian failure (principal) | CPT/HCPCS: 77080 ==